=== PATIENT | female | born 1950 | race Caucasian/White ===

== ENCOUNTER 2016-12-01 07:05 | Inpatient (IN) | payer OTHER ==
[2016-12-01] MEDS ORDERED: SODIUM CHLORIDE 1,000 ML IV STA (07:43)
[2016-12-01] MEDS ORDERED: SODIUM CHLORIDE 0.9% 1000 ML INFUS.BAG IV PRN (07:43)
[2016-12-01 07:55] LABS: VENOUS PH 7.15 (7.32-7.42)
[2016-12-01] MEDS ORDERED: FUROSEMIDE 40 MG/4 ML INJECTABLE VIAL IVPB ONE (07:55)
--- NOTE | 2016-12-01 07:58 | PDOC ---
Attending Attestation - Resident Resident Name: John Loen - ED Attending Attestation I have performed the following: I have examined & evaluated the patient, The case was reviewed & discussed with the resident, I agree w/resident's findings & plan, Exceptions are as noted - HPI HPI: 12/01/16 07:54 66-year-old female with history of hypertension presents with acute on chronic shortness of breath over the last 2-3 days positive dyspnea, positive orthopnea , positive cough. No fevers or chills, had recently normal nuclear stress test with normal EF on 11/11/16. - Physicial Exam PE: 12/01/16 07:56 Afebrile. Slight tachycardia. Course breath sounds bilaterally with some expiratory wheezing, scant basilar crackles. Trace ankle edema bilaterally, no calf tenderness or swelling - Medical Decision Making 12/01/16 07:56 Patient seen and evaluated with the resident. I agree with the overall evaluation, assessment, and management with the following summary of visit: 66-year-old female with history of hypertension presents with progressive shortness of breath over the last year, acutely exacerbated over the last 2-3 days. Question diastolic heart failure, question primary lung disease such as COPD, seems less consistent with PE. Labs, urinalysis EKG, chest x-ray Trial of nebulizers and small dose IV Lasix Will need admission for further cardiac and pulmonary evaluation.
--- NOTE | 2016-12-01 08:00 | PDOC ---
History of Present Illness - General Chief Complaint: Shortness of Breath Stated Complaint: DIFF BREATHING Time Seen by Provider: 12/01/16 07:18 History Source: Patient Exam Limitations: Language Barrier - History of Present Illness Initial Comments: 12/01/16 07:56 64 yo F with PMhx of HTN and hypothyroidism presents with two day history of increased shortness of breath. She states that for past year she has had extensive testing to discover the cause of her worsening ALEMAN. She states that for past two days she has had increasing SOB to the point today where her daughter noted accessory muscle use and severe SOB at rest. She was given her [facility] treatment at home with minimal releif. She endorses orthopnea , palpitations and non-productive cough. Denies fever, CP, REYNA, abd.pain, N/V. Timing/Duration: reports: getting worse Severity: reports: moderate Possible Cause: Yes: no prior episodes Modifying Factors: improves with: activity, coughing, lying down Associated Symptoms: reports: cough. denies: fever/chills Aspirin Received prior to arrival: Yes: no aspirin today Past History - Past Medical History Allergies/Adverse Reactions: Allergies Allergy/AdvReac Type Severity Reaction Status Date / Time No Known Allergies Allergy Verified 12/01/16 07:18 Home Medications: Ambulatory Orders Amlodipine Besylate [Norvasc -] 10 mg PO DAILY 12/01/16 Lisinopril [Zestril] 2.5 mg PO DAILY 12/01/16 Omeprazole 20 mg PO DAILY 12/01/16 Simvastatin [Zocor -] 20 mg PO HS 12/01/16 HTN: Yes Thyroid Disease: Yes - Family Disease History Family Disease History: Heart Disease: Father, Mother, Sister (SCD post [place] @ 53) - Psycho/Social/Smoking Cessation Hx Suicidal Ideation: No Smoking History: Never smoked Have you smoked in the past 12 months: No Information on smoking cessation initiated: No Hx Alcohol Use: No Drug/Substance Use Hx: No Respiratory Specific PMHX - Complaint Specific PMHX Bronchitis: No Pneumonia: No Review of Systems - Review of Systems Able to Perform ROS?: Yes Is the patient limited Kinyarwanda proficient: Yes Constitutional: Yes: Diaphoresis. No: Chills, Fever Respiratory: Yes: Cough, Orthopnea, Shortness of Breath, SOB with Exertion, SOB at Rest Cardiac (ROS): Yes: Edema All Other Systems: Reviewed and Negative *Physical Exam - Vital Signs Last Vital Signs Temp Pulse Resp BP Pulse Ox 98.2 F 113 H 20 154/96 100 12/01/16 07:18 12/01/16 07:18 12/01/16 07:18 12/01/16 07:18 12/01/16 07:18 - Physical Exam General Appearance: Yes: Moderate Distress HEENT: positive: EOMI, LAMAR, Normal ENT Inspection Neck: positive: Supple Respiratory/Chest: positive: Respiratory Distress, Labored Respiration, Crackles , Wheezing Cardiovascular: positive: Regular Rhythm, Regular Rate, S1, S2, Edema. negative : JVD, Murmur Vascular Pulses: Dorsalis-Pedis (R): 2+, Doralis-Pedis (L): 2+ Gastrointestinal/Abdominal: positive: Normal Bowel Sounds, Flat, Soft. negative : Tender, Organomegaly, Pulsatile Mass Musculoskeletal: positive: Normal Inspection. negative: CVA Tenderness Extremity: positive: Normal Inspection Integumentary: positive: Normal Color, Dry, Warm. 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 intact, Fully Oriented, Alert, Normal Mood/ Affect Heart Score/ECG Review - History History: Slightly suspicious - Electrocardiogram EKG: Normal - Age Age: >/= 65 - Risk Factors Risk Factors Heart Score: Yes Hx Hypercholesterolemia, Yes Hx Hypertension, Yes Smoking History, Yes Positive family hx of cardiac disease Based on the list above the patient has:: >/=3 risk factors or Hx atherosclerotic disease - ECG Intrepretation Rhythm: Regular Rhythm - Sallis Sallis: Normal - ST and T Early Repolarization: No Non Specific ST-T Wave changes: No - ECG Impressions Normal ECG: Yes ED Treatment Course - LABORATORY CBC & Chemistry Diagram: 12/01/16 07:44 12/01/16 07:44 - RADIOLOGY Chest X-Ray Result: No Infiltrates Radiograph Interpretation: 12/01/16 09:33 * RAD/CHEST X-RAY PORTABLE* AP portable chest: Sepsis Imaging reveals a normal heart, unfolded aorta and normal tomasz. There is fullness in the right superior mediastinum. The lungs are clear. The angles are sharp. The bones appear intact. The breasts soft tissues appear intact. A sonogram from 09/22/2015 showed an enlarged right thyroid. This right superior mediastinal soft tissue density could represent this. For more complete evaluation, follow-up imaging with sonography or CT may be of help. Impression: Fullness right superior mediastinum. The above. Reported By: Aron Todd MD 12/01/16 0853 12/01/16 11:04 * EXAM#: TYPE/EXAM: RESULT: [id number] CT/CHEST CTA Clinical history: Rule out emboli. Comparison: Chest x-ray earlier today. Contiguous transaxial images were obtained from the lung apices to the bases with windows obtained for mediastinal and lung parenchymal detail. Images were obtained during the arterial phase for evaluation of pulmonary emboli. Sagittal and coronal reconstructions were performed as well as 3-D imaging. Mediastinum: There is a diffuse goiter with greater enlargement of the right lobe of the thyroid. At the level of the SC joints trachea is quite narrowed and slightly to the left. It measures a maximum of 7 mm in AP dimension x 5 mm in width. There is significant substernal extension bilaterally. The SVC is moderately compressed but is patent. Otherwise negative. Lungs: Small nonspecific subtle groundglass opacity anterior right upper lobe on image #30 of series #6. Suggest follow-up. 10 x 8 mm right lower lobe nodule on image #49. It has a somewhat unusual appearance with a thin peripheral hyperdense region and centrally being slightly hypodense. Correlate with PET scan. Bone: Negative. Cursory scanning of the upper abdomen: Negative. Impression: No evidence of emboli. 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 This results in significant narrowing of the airway with the trachea measuring 11 x 5 mm. There is a nonspecific subtle groundglass opacity in the right upper lobe which will need follow- up. There is a 10 x 8 mm nodule in the right lower lobe which should be evaluated with a PET scan. Clinical correlation advised. Reported By: Aron Parker MD 12/01/16 1029 Medical Decision Making - Medical Decision Making 12/01/16 08:06 64 yo F with PMhx of HTN and hypothyroidism presents with two day history of increased shortness of breath. Could be some component of CHF or primary lung issue. Will order Duoneb and Lasix 20mg IV. Ordered CBC, CMp, UA, and BNP. Will obtain CXR. 12/01/16 11:02 * Lactic acidemia noted on labs. * Chest CT- shows obstructing goiter, ground glass RUL and nodule RLL. * Decision to admit * accepted by [facility] Dr. Nichols. *DC/Admit/Observation/Transfer Diagnosis at time of Disposition: Acute respiratory distress, Lactic acidemia - Discharge Dispostion Admit: Yes - Referrals Referrals: Ga Montalvo MD [Primary Care Provider] -
[2016-12-01] MEDS: ALBUTEROL SO4 2.5/IPRATROPIUM 0.5 INH SOL 3 ML VIAL.NEB. NEB SCH ×4 (08:01→08:55)
[2016-12-01] MEDS ORDERED: FUROSEMIDE 40 MG/4 ML INJECTABLE VIAL ONE (08:02)
[2016-12-01] MEDS ORDERED: ALBUTEROL SO4 2.5/IPRATROPIUM 0.5 INH SOL 3 ML VIAL.NEB. NEB ONE (08:02)
[2016-12-01 08:41] LABS: BASOPHIL 0.5 % (0-2.0); MCH 25.1 pg (25.7-33.7); MCHC 32.4 g/dl (32.0-36.0); MEAN CELL VOLUME 77.6 fl (80-96); MEAN PLT VOLUME 10.5 fl (7.5-11.1); PLATELET COUNT 235 K/MM3 (134-434); RDW 15.5 % (11.6-15.6); WHITE BLOOD COUNT 10.5 K/mm3 (4.0-10.0)
[2016-12-01 08:43] LABS: ALBUMIN 3.6 g/dl (3.4-5.0); ANION GAP 11 (8-16); BILIRUBIN,TOTAL 0.3 mg/dL (0.2-1.0); CALCIUM 8.9 mg/dL (8.5-10.1); CO2 32 mmol/L (21-32); COCKROFT - GAULT 89.9045; CREATININE 0.8 mg/dL (0.55-1.02); GLUCOSE,RANDOM 143 mg/dL (74-106); SGOT/AST 17 U/L (15-37); SGPT/ALT 22 U/L (12-78); TOT PROT 7.3 g/dl (6.4-8.2)
[2016-12-01 08:45] LABS: ALK PHOS 119 U/L (45-117); TROPONIN I 0.02 ng/ml (0.00-0.05)
[2016-12-01 09:01] LABS: URINE APPEARANCE CLEAR; URINE BILIRUBIN NEGATIVE (NEGATIVE); URINE BLOOD NEGATIVE (NEGATIVE); URINE COLOR COLORLESS; URINE GLUCOSE (UA) NEGATIVE (NEGATIVE); URINE KETONE NEGATIVE (NEGATIVE); URINE NITRITE NEGATIVE (NEGATIVE); URINE PROTEIN NEGATIVE (NEGATIVE); URINE UROBILINOGEN NEGATIVE E.U./dl (0.2-1.0)
[2016-12-01 09:06] LABS: URINE LEUK ESTERASE TRACE (NEGATIVE)
[2016-12-01 09:07] LABS: URINE MUCUS RARE; URINE RBC 1 /hpf (0-3); URINE WBC 8 /hpf (3-5)
[2016-12-01 09:32] LABS: INR 0.93 (0.82-1.09); PROTHROMBIN TIME (PATIENT) 10.2 SEC (9.98-11.88)
[2016-12-01 09:35] LABS: ACTIVATED PTT 35.1 SECONDS (26.9-34.4)
[2016-12-01] MEDS ORDERED: ALBUTEROL SO4 2.5/IPRATROPIUM 0.5 INH SOL 3 ML VIAL.NEB. NEB PRN (10:56)
--- NOTE | 2016-12-01 13:08 | EKG ---
Test Reason : Blood Pressure : / mmHG Vent. Rate : 106 BPM Atrial Rate : 106 BPM P-R Int : 172 ms QRS Dur : 092 ms QT Int : 360 ms P-R-T Axes : 046 -19 020 degrees QTc Int : 478 ms SINUS TACHYCARDIA POSSIBLE LEFT ATRIAL ENLARGEMENT ANTERIOR INFARCT , AGE UNDETERMINED ABNORMAL ECG NO PREVIOUS ECGS AVAILABLE Confirmed by VANESSA SALGADO MD ([id number]) on 12/01/2016 1:08:29 PM Referred By: Confirmed By:VANESSA SALGADO MD
--- NOTE | 2016-12-01 14:04 | PN ---
Teaching Attending Note Name of Resident: Renetta Pimentel ATTENDING PHYSICIAN STATEMENT I saw and evaluated the patient. I reviewed the resident's note and discussed the case with the resident. I agree with the resident's findings and plan as documented. SUBJECTIVE:c/o dyspnea on exertion progressively worsening over the past few weeks. assoc with non productive cough. as per daughter who is present at bedside who translated. pt was told she had a thyroid goiter a year ago and was told it was benign (but no bx was done). denies CP, fever, chills, odynophagia, dysphagia, drooling, hoarseness of voice. OBJECTIVE: Last Vital Signs Temp Pulse Resp BP Pulse Ox 97.1 F L 81 18 132/79 100 12/01/16 10:54 12/01/16 14:08 12/01/16 14:08 12/01/16 14:08 12/01/16 14:08 General NAD no tachypnea no drooling. speaking in clear sentences without respiratory distress HEENT no stridor, no oral plaques or lesions +thyromegaly, no nodules CV S1 S2 RRR no murmur/rub/gallop Lungs CTA B/L no wheezing/rales/rhonchi abdomen soft NT/ND obese Extremities no pedal edema ASSESSMENT AND PLAN: 66yo F with PMH HTN presented to the ER and was admitted for further evaluation of their emergent condition 1. thyroid mass with tracheal compression- pt is saturating 99% on 2L NC. no signs of respiratory distress. check ABG. ICU eval. ENT and CT surgery eval. will likely require resection. call PMD for previous workup done. check TSH supplemental oxygen to maintain spO2 >90%. low threshold for intubation. 2. Lactic acidosis- awaiting repeat Lactic acid 3. Lung nodule- +smoking history. will need repeat CT in 3 months 4. HTn- controlled. cont home medications 5. DVT ppx- hep sq The care of this patient involved high complexity decision making to prevent further life threatening deterioration of the patient's condition and/or to evalute & treat vital organ system(s) failure or risk of failure. 38 minutes critical care time
--- NOTE | 2016-12-01 14:46 | HP ---
CHIEF COMPLAINT: shortness of breath PCP: Dr. Robins HISTORY OF PRESENT ILLNESS: This is a 66 year old female with a past medical history of HTN,hypothyroid ( previously on levothyroxine) ex smoker, who presented with a chronic history (> one year), of dyspnea with exertion that has progressively gotten worse over the last 2 days. Patient was with daughter when she felt sob, daughter states she had to therapist's assistant her "mouth to mouth" and called ambulance. Patinet also states she has had some difficulty with food/discomfort. Patient denies fever, chills, sore throat, chest pain, palpitations, leg swelling, GI or complaints. Patient was been worked up in the past for her condition according to the daughter, no obvious causes found. Patient quit smoking at age 69; 1ppd. Patient was tachycardic, hypertensive upon admission, O2 saturation on room air was 100%. I spoke with Dr. Robins, his records indicate that she was treated for hypothyriod in the past, she was on levothyroxine, this was discontinued, no records of thyroid imaging. As per chart she had thyroid US in 2016 showing enlarged right thyroid, follow up unknown. ER course was notable for: (1)wbc 10.5; lactic acid 5.5; venous blood gas ph 7.1 (2)CXR wnl (3)Chest CT large goiter compressing trachea Recent Travel: no PAST MEDICAL HISTORY: htn. history of hypothyroid PAST SURGICAL HISTORY: Social History: Smoking:ex smoker Alcohol:no Drugs: no Family History: Allergies No Known Allergies Allergy (Verified 12/01/16 07:18) HOME MEDICATIONS: Home Medications Medication Instructions Recorded Amlodipine Besylate [Norvasc -] 10 mg PO DAILY 12/01/16 Lisinopril [Zestril] 2.5 mg PO DAILY 12/01/16 Omeprazole 20 mg PO DAILY 12/01/16 Simvastatin [Zocor -] 20 mg PO HS 12/01/16 REVIEW OF SYSTEMS CONSTITUTIONAL: Absent: fever, chills, diaphoresis, generalized weakness, malaise, loss of appetite, weight change HEENT: Absent: rhinorrhea, nasal congestion, throat pain, throat swelling, difficulty swallowing, mouth swelling, ear pain, eye pain, visual changes CARDIOVASCULAR: Absent: chest pain, syncope, palpitations, irregular heart rate, lightheadedness , peripheral edema RESPIRATORY: POsitive: shortness of breath, dyspnea with exertion, orthopnea Absent: cough, , wheezing, stridor, hemoptysis GASTROINTESTINAL: Absent: abdominal pain, abdominal distension, nausea, vomiting, diarrhea, constipation, melena, hematochezia GENITOURINARY: Absent: dysuria, frequency, urgency, hesitancy, hematuria, flank pain, genital pain MUSCULOSKELETAL: Absent: myalgia, arthralgia, joint swelling, back pain, neck pain SKIN: Absent: rash, itching, pallor HEMATOLOGIC/IMMUNOLOGIC: Absent: easy bleeding, easy bruising, lymphadenopathy, frequent infections ENDOCRINE: Absent: unexplained weight gain, unexplained weight loss, heat intolerance, cold intolerance NEUROLOGIC: Absent: headache, focal weakness or paresthesias, dizziness, unsteady gait, seizure, mental status changes, bladder or bowel incontinence PSYCHIATRIC: Absent: anxiety, depression, suicidal or homicidal ideation, hallucinations. PHYSICAL EXAMINATION Vital Signs - 24 hr 12/01/16 14:08 Pulse Rate [ 81 Apical] Respiratory 18 Rate Blood Pressure 132/79 [Right Arm] O2 Sat by Pulse 100 Oximetry (%) GENERAL: Awake, alert, and fully oriented, in no acute distress. HEAD: Normal with no signs of trauma. EYES: Pupils equal, round and reactive to light, extraocular movements intact, sclera anicteric, conjunctiva clear. No lid lag. EARS, NOSE, THROAT: Ears normal, nares patent, oropharynx clear without exudates. Moist mucous membranes. NECK: neck fullness ,without lymphadenopathy, JVD, LUNGS: Breath sounds equal, clear to auscultation bilaterally. No wheezes, and no crackles. No accessory muscle use. HEART: Regular rate and rhythm, normal S1 and S2 without murmur, rub or gallop. ABDOMEN: Soft, nontender, not distended, normoactive bowel sounds, no guarding, no rebound, no masses. No hepatomegaly or splenomegaly. MUSCULOSKELETAL: Normal range of motion at all joints. No bony deformities or tenderness. No CVA tenderness. UPPER EXTREMITIES: 2+ pulses, warm, well-perfused. No cyanosis. No clubbing. No peripheral edema. LOWER EXTREMITIES: 2+ pulses, warm, well-perfused. No calf tenderness. No peripheral edema. NEUROLOGICAL: Cranial nerves II-XII intact. Normal speech. Normal gait. PSYCHIATRIC: Cooperative. Good eye contact. Appropriate mood and affect. SKIN: Warm, dry, normal turgor, no rashes or lesions noted, normal capillary refill. IMAGES: 12/01/16 09:33 RAD/CHEST X-RAY PORTABLE* AP portable chest: Sepsis Imaging reveals a normal heart, unfolded aorta and normal tomasz. There is fullness in the right superior mediastinum. The lungs are clear. The angles are sharp. The bones appear intact. The breasts soft tissues appear intact. A sonogram from 09/22/2015 showed an enlarged right thyroid. This right superior mediastinal soft tissue density could represent this. For more complete evaluation, follow-up imaging with sonography or CT may be of help. Impression: Fullness right superior mediastinum. The above. Reported By: Aron Todd MD 12/01/16 0853 12/01/16 11:04 EXAM#: TYPE/EXAM: RESULT: [id number] CT/CHEST CTA Clinical history: Rule out emboli. Comparison: Chest x-ray earlier today. Contiguous transaxial images were obtained from the lung apices to the bases with windows obtained for mediastinal and lung parenchymal detail. Images were obtained during the arterial phase for evaluation of pulmonary emboli. Sagittal and coronal reconstructions were performed as well as 3-D imaging. Mediastinum: There is a diffuse goiter with greater enlargement of the right lobe of the thyroid. At the level of the SC joints trachea is quite narrowed and slightly to the left. It measures a maximum of 7 mm in AP dimension x 5 mm in width. There is significant substernal extension bilaterally. The SVC is moderately compressed but is patent. Otherwise negative. Lungs: Small nonspecific subtle groundglass opacity anterior right upper lobe on image #30 of series #6. Suggest follow-up. 10 x 8 mm right lower lobe nodule on image #49. It has a somewhat unusual appearance with a thin peripheral hyperdense region and centrally being slightly hypodense. Correlate with PET scan. Bone: Negative. Cursory scanning of the upper abdomen: Negative. Impression: No evidence of emboli. 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 This results in significant narrowing of the airway with the trachea measuring 11 x 5 mm. There is a nonspecific subtle groundglass opacity in the right upper lobe which will need follow- up. There is a 10 x 8 mm nodule in the right lower lobe which should be evaluated with a PET scan. Clinical correlation advised. Reported By: Aron Parker MD 12/01/16 1029 ASSESSMENT/PLAN: This is a 66 year old female with PMHx HTN and previous hypothyriod, currently not on thyroid medication, presented with worsening shortness of breath over the last two days. CT showing large goiter compressing trachea. Patient admitted for acute respiratory distress and evaluation of emergent condition. #Hypercapniec respiratory failure with lactic acidosis secondary to diffuse goiter compressing trachea -CT imaging details above -VBG ph 7.1 on RA; repeat with ABG -repeat lactic acid -on 2L NC -transfer to ICU; maintain airway; low threshold for intubation -call out to thoracic surgeon, Dr. Yovany Bonilla for possible surgery #hx of hypothyroid: -thyroid studies pending #HTN: -lisinopril 2.5mg qd #HLD: -simvistatin 20mg qd #lung nodule found on CT: -f/u PET scan as outpatient FEN: Fluids: 125ml/hr NS Electrolytes: wnl Diet: NPO VTE prophylaxis: n/a may go for surgery Disposition: transfer to ICU: pending surgery Visit type - Emergency Visit Emergency Visit: Yes ED Registration Date: 12/01/16 Care time: The patient presented to the Emergency Department on the above date and was hospitalized for further evaluation of their emergent condition. - New Patient This patient is new to me today: Yes Date on this admission: 12/01/16 - Critical Care Critical Care patient: Yes Total Critical Care Time (in minutes): 35 Critical Care Statement: The care of this patient involved high complexity decision making to prevent further life threatening deterioration of the patient 's condition and/or to evalute & treat vital organ system(s) failure or risk of failure.
--- NOTE | 2016-12-01 16:11 | PN ---
Teaching Attending Note Name of Resident: Shant Easley ATTENDING PHYSICIAN STATEMENT I saw and evaluated the patient. I reviewed the resident's note and discussed the case with the resident. I agree with the resident's findings and plan as documented. SUBJECTIVE: Briefly, 66yo female with h/o HTN, hypothyroidism, known enlarged thyroid seen on ultrasound last year who presents with worsening shortness of breath over the past year but much worse over the past 2 days. No chest pain or palpitations. No fevers, chills or sweats. Also reports dysphagia. CT chest performed showing very large thyroid with extraluminal trachea compression with 5mm widthwise patency. VBG done in the ER showing acute on chronic respiratory acidosis. OBJECTIVE: Last Vital Signs Temp Pulse Resp BP Pulse Ox 97.1 F L 88 19 144/86 99 12/01/16 10:54 12/01/16 16:02 12/01/16 16:02 12/01/16 16:02 12/01/16 16:02 Intake & Output 11/28/16 11/29/16 11/30/16 12/01/16 23:59 23:59 23:59 23:59 Weight 184 lb Gen: anxious, mildly tachypneic at rest Neck: +stridor, diffuse thyromegaly Heart: RRR Lung: distant breath sounds Abd: soft, nontender Ext: no edema CBC, BMP 12/01/16 07:44 12/01/16 07:44 Active Medications Albuterol/Ipratropium (Duoneb -) 1 amp NEB QIDR PRN PRN Reason: Dyspnea Amlodipine Besylate (Norvasc -) 10 mg PO DAILY VERA Atorvastatin Calcium (Lipitor -) 10 mg PO HS VERA Enoxaparin Sodium (Lovenox -) 40 mg SQ DAILY VERA Lisinopril (Prinivil) 2.5 mg PO DAILY VERA Pantoprazole Sodium (Protonix -) 20 mg PO DAILY VERA ASSESSMENT AND PLAN: Acute on Hypercapneic Respiratory Failure Thyromegaly with Tracheal Compression Lactic Acidosis HTN Lung Nodule - head and neck surgery evaluation as pt will likely need resection - ABG as pt with acute respiratory acidosis on VBG but pt in distress at that time - O2 to keep SpO2 >90% - can attempt BiPAP if respiratory status worsens - ICU monitoring for tenuous respiratory status - will need outpt work up of lung nodule as she was a smoker Thank you for this consult Conner Jensen MD critical care time spent reviewing chart, evaluating patient and formulating plan 35 min
[2016-12-01 16:23] LABS: ARTERIAL BLD GAS O2 SATURATION 98.5 % (90-98.9); ARTERIAL BLOOD GAS BASE EXCESS 4.5 meq/l (-2-2); ARTERIAL BLOOD GAS HCO3 28.2 meq/L (22-26)
[2016-12-01 16:24] LABS: ALLENS TEST POSITIVE; ART PUNCT SITE RIGHT RADIAL; PT. ON O2? YES
[2016-12-01 16:25] LABS: ARTERIAL BLOOD GAS pH 7.46 (7.35-7.45); LPM/O2% 2 LPM; TYPE OF O2 NASAL CANNULA
[2016-12-01] MEDS ORDERED: SODIUM CHLORIDE 1,000 ML IV SCH (16:45)
--- NOTE | 2016-12-01 17:08 | CONSULT ---
Consultation: REQUESTING PROVIDER: CONSULT REQUEST: We have been asked to medically evaluate this patient for (ICU) . HISTORY OF PRESENT ILLNESS: 66YF with PMH of HTN, hypothyroid (previously on levothyroxine), former smoker presents to ED with dyspnea. patient reports greater than a year and a half of progressive, constant, dyspnea, aggravated by activity. patient daughter reports constant loud breathing sounds "Stridor" during rest and especially during activity. worsened passed two days, daughter gave patient "mouth to mouth" and called ambulance. As per chart she had thyroid US in 2016 showing enlarged right thyroid, follow up unknown. Patient reports occasional dysphasia , palpitations,generalized weakness, hot flashes. Denies weight loss, cold intolerance, constipation. The patient denies fever, chills, rhinorrhea, nasal congestion, ear pain. The patient denies chest pain, headache,dizziness, lightheadedness, fever, chills, cough, back pain. The patient denies abdominal pain, nausea, vomiting, diarrhea, hematochezia, melena. The patient denies lower extremity pain/swelling and/or recent prolonged immobilization. CT chest performed showing very large thyroid with extraluminal trachea compression with 5mm widthwise patency. VBG done in the ER showing acute on chronic respiratory acidosis. Repeat ABG IN ER Improved to primary metabolic alkalosis with full Respiratory Compensation PH 7.46 Hco3 28.2 pco2 40 had recently normal nuclear stress test with normal EF on 11/11/16. 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 Migrated from [place] 2008. lives with daughter and grand son. quit smoking 17 years ago 1 and 1/2 pack daily, denies drug or alcohol use. Family history; mother, aunt, sister, female cousin has had thyroid surgery. ER course was notable for: (1)wbc 10.5; lactic acid 5.5; venous blood gas ph 7.1 (2)CXR wnl (3)Chest CT large goiter compressing trachea REVIEW OF SYSTEMS: CONSTITUTIONAL: generalized weakness, malaise, Absent: fever, chills, diaphoresis, loss of appetite, weight change HEENT: occasional difficulty swallowing, Absent: rhinorrhea, nasal congestion, throat pain, throat swelling, mouth swelling, ear pain, eye pain, visual changes CARDIOVASCULAR: Absent: chest pain, syncope, palpitations, irregular heart rate, lightheadedness , peripheral edema RESPIRATORY: cough, shortness of breath, dyspnea with exertion, orthopnea, stridor, Absent:wheezing, hemoptysis GASTROINTESTINAL: Absent: abdominal pain, abdominal distension, nausea, vomiting, diarrhea, constipation, melena, hematochezia GENITOURINARY: Absent: dysuria, frequency, urgency, hesitancy, hematuria, flank pain, genital pain MUSCULOSKELETAL: Absent: myalgia, arthralgia, joint swelling, back pain, neck pain SKIN: Absent: rash, itching, pallor HEMATOLOGIC/IMMUNOLOGIC: Absent: easy bleeding, easy bruising, lymphadenopathy, frequent infections ENDOCRINE: Absent: unexplained weight gain, unexplained weight loss, heat intolerance, cold intolerance NEUROLOGIC: Absent: headache, focal weakness or paresthesias, dizziness, unsteady gait, seizure, mental status changes, bladder or bowel incontinence PSYCHIATRIC: Absent: anxiety, depression, suicidal or homicidal ideation, hallucinations. PHYSICAL EXAMINATION Vital Signs - 24 hr 12/01/16 12/01/16 14:08 16:02 Pulse Rate [ 81 88 Apical] Respiratory 18 19 Rate Blood Pressure 132/79 144/86 [Right Arm] O2 Sat by Pulse 100 99 Oximetry (%) GENERAL: Awake, alert, and fully oriented, in no acute distress. pleasantly sitting in bed, strider heard at bed side with coughing. Strider heard heard on auscultation at rest. HEAD: Normal with no signs of trauma. EYES: Pupils equal, round and reactive to light, extraocular movements intact, sclera anicteric, conjunctiva clear. No lid lag. EARS, NOSE, THROAT: Ears normal, nares patent, oropharynx clear without exudates. Moist mucous membranes. NECK: Normal range of motion, +stridor, diffuse thyromegaly, supple without lymphadenopathy, JVD, LUNGS: distant breath sounds, breath sounds equal, clear to auscultation bilaterally. No wheezes, and no crackles. No accessory muscle use. HEART: Regular rate and rhythm, normal S1 and S2 without murmur, rub or gallop. superficail ABDOMEN: Obese abdomin, Soft, nontender, not distended, normoactive bowel sounds , no guarding, no rebound, no masses. No hepatomegaly or splenomegaly. UPPER EXTREMITIES: 2+ pulses, warm, well-perfused. No cyanosis. No clubbing. Cap refill <2 seconds. No peripheral edema. LOWER EXTREMITIES: 2+ pulses, warm, well-perfused. No calf tenderness. No peripheral edema. NEUROLOGICAL: Cranial nerves II-XII intact. Normal speech. Normal gait. PSYCHIATRIC: Cooperative. Good eye contact. Appropriate mood and affect. SKIN: Warm, dry, normal turgor, no rashes or lesions noted. Laboratory Results - last 24 hr 12/01/16 16:15 Puncture Site Right radial ABG pH 7.46 H ABG pCO2 at Pt Temp 40.0 ABG pO2 at Pt Temp 106.0 H ABG HCO3 28.2 H ABG O2 Sat (Measured) 98.5 ABG O2 Content 18.6 ABG Base Excess 4.5 H Michele Test Positive O2 Delivery Device Nasal cannula Oxygen Flow Rate 2 lpm PEEP 0.0 Active Medications Generic Name Dose Route Start Last Admin Trade Name Freq PRN Reason Stop Dose Admin Albuterol/Ipratropium 1 amp 12/01/16 10:56 Duoneb - NEB QIDR PRN Dyspnea Amlodipine Besylate 10 mg 12/02/16 10:00 Norvasc - PO DAILY VERA Atorvastatin Calcium 10 mg 12/01/16 22:00 Lipitor - PO HS VERA Sodium Chloride 1,000 mls @ 125 mls/hr 12/01/16 16:45 Normal Saline - IV ASDIR VERA Lisinopril 2.5 mg 12/02/16 10:00 Prinivil PO DAILY VERA Pantoprazole Sodium 20 mg 12/02/16 10:00 Protonix - PO DAILY VERA ASSESSMENT/PLAN: 66YF with PMH of HTN, hypothyroid (previously on levothyroxine), former smoker presents to ED with dyspnea. patient reports greater than a year and a half of progressive, constant, dyspnea, aggravated by activity. CT showing large goiter compressing trachea. Acute on Hypercapneic Respiratory Failure resolving bedside spirometry fixed obstructive volume loop paten can attempt BiPAP if respiratory status worsens If intubation is necessary consider smaller tube size and assess distance bellow vocal cord. On 2L NC saturting 95% O2 to keep SpO2 >90% Thyromegaly/Goiter with Tracheal Compression: Massive goiter leading to respiratory compromise. awaiting ENT/ surgery consultation Surgery here at [facility] on Tuesday. Lactic Acidosis: resolved HTN: Controlled on home Amlodipine, Lisinopril HLD: -simvastatin 20mg qd leukocytosis: resolved: reactive Lung Nodule monitor as outpatient repeat CT in 3-6 months FEN: Fluids: oral hydration Electrolytes:Replete as needed Diet:soft No indication for GI prophylaxis DVT prophylaxis: heprain sq Dispo: continue ICU monitoring for tenuous respiratory status Dispo: We will continue to follow the patient. Thank you for this consultative opportunity. Visit type - Emergency Visit Emergency Visit: Yes ED Registration Date: 12/01/16 Care time: The patient presented to the Emergency Department on the above date and was hospitalized for further evaluation of their emergent condition. - New Patient This patient is new to me today: Yes Date on this admission: 12/01/16 - Critical Care Critical Care patient: Yes Total Critical Care Time (in minutes): 47 Critical Care Statement: The care of this patient involved high complexity decision making to prevent further life threatening deterioration of the patient 's condition and/or to evalute & treat vital organ system(s) failure or risk of failure.
[2016-12-01 17:43] LABS: TROPONIN I 0.07 ng/ml (0.00-0.05)
--- NOTE | 2016-12-01 19:36 | PN ---
Progress Note (short form) - Note Progress Note: ENT consultation ref by Dr. Jerry, Dr. Montalvo pt with recent shortness of breath, to ER, CT scan shows massive goiter with substantial substernal component, tracheal compression PE NAD 9oral cavity and oropharynx clear voice clear and strong, no stridor or respiratory distress Neck: large goiter, bilateral CT chest +large goiter with significant substernal component, tracheal narrowing Impression: goiter, tracheal compression Recommend: agree with ICU observation surgery with DR. Lemos as planned. Thank you for consultation Aron Washington MD
[2016-12-01 22:03] VITALS: BMI 33.6
[2016-12-01] MEDS ORDERED: ACETAMINOPHEN 325 MG TABLET (FP) PO ONE (22:22)
[2016-12-01] MEDS: ATORVASTATIN CA 10 MG TABLET (FP) PO SCH (22:24)
[2016-12-01] MEDS: HEPARIN NA (PORCINE) 5,000 UNITS/ML 1ML VIAL SQ SCH (22:24)
[2016-12-02 06:59] LABS: MAGNESIUM 2.1 mg/dL (1.8-2.4); PHOSPHOROUS 3.7 mg/dL (2.5-4.9)
[2016-12-02 07:07] LABS: FREE T4 0.96 ng/dl (0.76-1.46); THYROID STIMULATING HORMONE 0.92 uIU/ml (0.358-3.74)
[2016-12-02] MEDS ORDERED: ACETAMINOPHEN 325 MG TABLET (FP) PO PRN (07:52)
[2016-12-02 08:56] LABS: BASOPHIL 0.6 % (0-2.0); MCH 24.4 pg (25.7-33.7); MCHC 32.1 g/dl (32.0-36.0); MEAN PLT VOLUME 10.2 fl (7.5-11.1); NEUTROPHILS 49.9 % (42.8-82.8); PLATELET COUNT 240 K/MM3 (134-434); RDW 15.1 % (11.6-15.6); WHITE BLOOD COUNT 8.4 K/mm3 (4.0-10.0)
[2016-12-02] MEDS ORDERED: PNEUMOC 13-VAL CONJ-DIP CRM/PF 0.5 ML DISP.SYRIN IM ONE (09:00)
[2016-12-02] MEDS ORDERED: INFLUENZA VACCINE 45 MCG/0.5 ML (MDV 16-17) IM ONE (09:00)
[2016-12-02 09:42] LABS: TROPONIN I < 0.02 ng/ml (0.00-0.05)
[2016-12-02] MEDS: LISINOPRIL 5 MG TABLET (FP) PO SCH (09:42)
[2016-12-02] MEDS: HEPARIN NA (PORCINE) 5,000 UNITS/ML 1ML VIAL SQ SCH ×2 (09:42→21:16)
[2016-12-02] MEDS: amLODIPine BESYLATE 10 MG TABLET (FP) PO SCH (09:42)
[2016-12-02 09:44] LABS: ALBUMIN 3.6 g/dl (3.4-5.0); ANION GAP 9 (8-16); CALCIUM 8.7 mg/dL (8.5-10.1); CO2 29 mmol/L (21-32); CREATININE 0.8 mg/dL (0.55-1.02); GLUCOSE,RANDOM 143 mg/dL (74-106); SGOT/AST 18 U/L (15-37); SGPT/ALT 21 U/L (12-78)
[2016-12-02 09:46] LABS: ALK PHOS 111 U/L (45-117); BILIRUBIN,TOTAL 0.4 mg/dL (0.2-1.0); TROPONIN I < 0.02 ng/ml (0.00-0.05)
[2016-12-02] MEDS ORDERED: PANTOPRAZOLE 20 MG TABLET (FP) PO SCH (10:00)
[2016-12-02] MEDS ORDERED: ENOXAPARIN NA (PORCINE) 40 MG/0.4 ML DISP.SYRIN SQ SCH (10:00)
--- NOTE | 2016-12-02 11:54 | PN ---
Progress Note (short form) - Note Progress Note: Patient seen and examined. Episode of dyspnea and possible respiratory arrest responded to mouth to mouth resuscitation. Had a URI at home which worsened breathing. No chest pain. Has had known thyroid issue for a while. Much improved after admission to the hospital. PMH: HTN SH: ex-smoker 1-1.5 ppd from age 24 to 49 Examination shows obese woman in no distress breathing easily but with slight stridorous sound. Thyroid goiter palpable in the neck right greater than left, no adenopathy. Oral cavity no lesion. CT scan massive circumferential goiter with severe tracheal narrowing A/P: Massive goiter leading to respiratory compromise. Recommend total thyroidectomy. Discussed risks including voice change or possible need for tracheostomy if tracheomalacia encountered. Agrees to proceed. OR time available Tuesday so will proceed then. NPO past midnight Tuesday night. Please ask Anesthesia to evaluate preop.
--- NOTE | 2016-12-02 12:20 | EKG ---
Test Reason : Blood Pressure : / mmHG Vent. Rate : 079 BPM Atrial Rate : 079 BPM P-R Int : 174 ms QRS Dur : 094 ms QT Int : 400 ms P-R-T Axes : 042 -16 001 degrees QTc Int : 458 ms NORMAL SINUS RHYTHM INFERIOR INFARCT , AGE UNDETERMINED ABNORMAL ECG WHEN COMPARED WITH ECG OF 01-DEC-2016 07:13, INVERTED T WAVES HAVE REPLACED NONSPECIFIC T WAVE ABNORMALITY IN INFERIOR LEADS Confirmed by JACQUELIN BAUER, DELGADO ([id number]) on 12/02/2016 12:20:09 PM Referred By: SAUL SINGER Confirmed By:DELGADO ROPER MD
--- NOTE | 2016-12-02 13:10 | PN ---
Teaching Attending Note Name of Resident: Shant Easley ATTENDING PHYSICIAN STATEMENT I saw and evaluated the patient. I reviewed the resident's note and discussed the case with the resident. I agree with the resident's findings and plan as documented. SUBJECTIVE: Pt seen and examined in the ICU. Breathing improving, +cough with yellow sputum. No fevers or chills. Denies shortness of breath at rest. OBJECTIVE: Last Vital Signs Temp Pulse Resp BP Pulse Ox 98.4 F 94 H 14 128/96 95 12/02/16 10:00 12/02/16 12:00 12/02/16 12:00 12/02/16 12:00 12/02/16 10:10 Intake & Output 11/29/16 11/30/16 12/01/16 12/02/16 23:59 23:59 23:59 23:59 Weight 195 lb 15.855 oz Gen: mildly tachypneic with speaking Neck: thyromegaly, +stridor Heart: RRR Lung: distant breath sounds, no wheezes Abd: soft, nontender Ext: no edema CBC, BMP 12/02/16 08:53 12/02/16 08:53 Active Medications Acetaminophen (Tylenol -) 650 mg PO Q6H PRN PRN Reason: FEVER OR PAIN Albuterol/Ipratropium (Duoneb -) 1 amp NEB QIDR PRN PRN Reason: Dyspnea Amlodipine Besylate (Norvasc -) 10 mg PO DAILY [facility] Last Admin: 12/02/16 09:42 Dose: 10 mg Atorvastatin Calcium (Lipitor -) 10 mg PO HS [facility] Last Admin: 12/01/16 22:24 Dose: 10 mg Heparin Sodium (Porcine) (Heparin -) 5,000 unit SQ BID [facility] Last Admin: 12/02/16 09:42 Dose: 5,000 unit Sodium Chloride (Normal Saline -) 1,000 mls @ 125 mls/hr IV ASDIR [facility] Last Admin: 12/01/16 17:10 Dose: 125 mls/hr Lisinopril (Prinivil) 2.5 mg PO DAILY [facility] Last Admin: 12/02/16 09:42 Dose: 2.5 mg Pantoprazole Sodium (Protonix -) 20 mg PO DAILY [facility] Last Admin: 12/02/16 09:42 Dose: 20 mg ASSESSMENT AND PLAN: Acute on Hypercapneic Respiratory Failure resolving Thyromegaly/Goiter with Tracheal Compression Lactic Acidosis resolved HTN Lung Nodule - surgery evaluation appreciated, for OR on 12/06 - bedside spirometry to assess flow volume loop - O2 to keep SpO2 >90% - can attempt BiPAP if respiratory status worsens - continue ICU monitoring for tenuous respiratory status - will need outpt work up of lung nodule as she was a smoker critical care time spent reviewing chart, evaluating patient and formulating plan 35 min
--- NOTE | 2016-12-02 14:30 | PN ---
Physical Exam: SUBJECTIVE: Pt seen and examined in the ICU. siting comfortably in bed NAD,has appetite and had breakfast. Breathing improving, productive cough yellow sputum. No fevers or chills. Denies shortness of breath at rest. dyspnea, sob, [employer]ry[employer] with standing and walking. keep bed rest as tolerated. OBJECTIVE: Vital Signs Period Temp Pulse Resp BP Sys/Streeter Pulse Ox Last 24 Hr 97.4 F-98.6 F 80-94 14-19 128-161/74-96 95-100 GENERAL: Awake, alert, and fully oriented, in no acute distress. pleasantly sitting in bed, in mild stress and anxiety when cough, strider heard at bed side with coughing. Strider heard heard on auscultation at rest. HEAD: Normal with no signs of trauma. EYES: extraocular movements intact, sclera anicteric, conjunctiva clear. No lid lag. EARS, NOSE, THROAT: Oral cavity no lesion, ears normal, nares patent, oropharynx clear without exudates. Moist mucous membranes. NECK: Normal range of motion, +stridor, diffuse thyromegaly, supple without lymphadenopathy, JVD, LUNGS: distant breath sounds, breath sounds equal, clear to auscultation bilaterally. No wheezes, and no crackles. No accessory muscle use. HEART: prominent superficial veins on chest possible collateral circulation, Regular rate and rhythm, normal S1 and S2 without murmur, rub or gallop. ABDOMEN: Obese abdomin, Soft, nontender, not distended, normoactive bowel sounds , no guarding, no rebound, no masses. No hepatomegaly or splenomegaly. MUSCULOSKELETAL: Normal range of motion at all joints. No bony deformities or tenderness. LOWER EXTREMITIES: 2+ pulses, warm, well-perfused. No calf tenderness. No peripheral edema. NEUROLOGICAL: no facial asymmetry PSYCHIATRIC: Cooperative. Good eye contact. Appropriate mood and affect. SKIN: Warm, dry, normal turgor, no rashes or lesions noted. Laboratory Results - last 24 hr 12/01/16 12/01/16 12/01/16 16:15 16:30 16:30 WBC RBC Hgb Hct MCV MCHC RDW Plt Count MPV Neutrophils % Lymphocytes % Monocytes % Eosinophils % Basophils % Puncture Site Right radial ABG pH 7.46 H ABG pCO2 at Pt Temp 40.0 ABG pO2 at Pt Temp 106.0 H ABG HCO3 28.2 H ABG O2 Sat (Measured) 98.5 ABG O2 Content 18.6 ABG Base Excess 4.5 H Michele Test Positive O2 Delivery Device Nasal cannula Oxygen Flow Rate 2 lpm PEEP 0.0 Sodium Potassium Chloride Carbon Dioxide Anion Gap BUN Creatinine Creat Clearance w eGFR Random Glucose Lactic Acid 2.595 H* Calcium Phosphorus Magnesium Total Bilirubin AST ALT Alkaline Phosphatase Creatine Kinase 86 Troponin I 0.07 H Total Protein Albumin TSH Free T4 12/02/16 12/02/16 12/02/16 05:30 05:30 08:53 WBC 8.4 RBC 5.27 H Hgb 12.9 Hct 40.1 MCV 76.0 L MCHC 32.1 RDW 15.1 Plt Count 240 MPV 10.2 Neutrophils % 49.9 Lymphocytes % 37.4 Monocytes % 9.1 Eosinophils % 3.0 Basophils % 0.6 Puncture Site ABG pH ABG pCO2 at Pt Temp ABG pO2 at Pt Temp ABG HCO3 ABG O2 Sat (Measured) ABG O2 Content ABG Base Excess Michele Test O2 Delivery Device Oxygen Flow Rate PEEP Sodium Potassium Chloride Carbon Dioxide Anion Gap BUN Creatinine Creat Clearance w eGFR Random Glucose Lactic Acid 1.087 Calcium Phosphorus 3.7 Magnesium 2.1 Total Bilirubin AST ALT Alkaline Phosphatase Creatine Kinase 87 Troponin I < 0.02 Total Protein Albumin TSH 0.92 D Free T4 0.96 12/02/16 12/02/16 08:53 08:53 WBC RBC Hgb Hct MCV MCHC RDW Plt Count MPV Neutrophils % Lymphocytes % Monocytes % Eosinophils % Basophils % Puncture Site ABG pH ABG pCO2 at Pt Temp ABG pO2 at Pt Temp ABG HCO3 ABG O2 Sat (Measured) ABG O2 Content ABG Base Excess Michele Test O2 Delivery Device Oxygen Flow Rate PEEP Sodium 141 Potassium 4.3 Chloride 103 Carbon Dioxide 29 Anion Gap 9 BUN 15 D Creatinine 0.8 Creat Clearance w eGFR > 60 Random Glucose 143 H Lactic Acid Calcium 8.7 Phosphorus Magnesium Total Bilirubin 0.4 D AST 18 ALT 21 Alkaline Phosphatase 111 Creatine Kinase 94 Troponin I < 0.02 Total Protein 7.0 Albumin 3.6 TSH Free T4 Active Medications Generic Name Dose Route Start Last Admin Trade Name Freq PRN Reason Stop Dose Admin Acetaminophen 650 mg 12/02/16 07:52 Tylenol - PO Q6H PRN FEVER OR PAIN Albuterol/Ipratropium 1 amp 12/01/16 10:56 Duoneb - NEB QIDR PRN Dyspnea Amlodipine Besylate 10 mg 12/02/16 10:00 12/02/16 09:42 Norvasc - PO 10 mg DAILY VERA Administration Atorvastatin Calcium 10 mg 12/01/16 22:00 12/01/16 22:24 Lipitor - PO 10 mg HS VERA Administration Heparin Sodium (Porcine) 5,000 unit 12/01/16 22:00 12/02/16 09:42 Heparin - SQ 5,000 unit BID VERA Administration Sodium Chloride 1,000 mls @ 125 mls/hr 12/01/16 16:45 12/01/16 17:10 Normal Saline - IV 125 mls/hr ASDIR VERA Administration Lisinopril 2.5 mg 12/02/16 10:00 12/02/16 09:42 Prinivil PO 2.5 mg DAILY VERA Administration Pantoprazole Sodium 20 mg 12/02/16 10:00 12/02/16 09:42 Protonix - PO 20 mg DAILY VERA Administration ASSESSMENT/PLAN: 66YF with PMH of HTN, hypothyroid (previously on levothyroxine), former smoker presents to ED with dyspnea. patient reports greater than a year and a half of progressive, constant, dyspnea, aggravated by activity. CT showing large goiter compressing trachea. Acute on Hypercapneic Respiratory Failure resolving bedside spirometry fixed obstructive volume loop paten can attempt BiPAP if respiratory status worsens On 2L NC saturting 95% O2 to keep SpO2 >90% Thyromegaly/Goiter with Tracheal Compression: Massive goiter leading to respiratory compromise. discussed case with Dr Lemos, Recommend total or partial thyroidectomy, for surgery on tuesday. surgery evaluation appreciated, for OR on 12/06 Lactic Acidosis: resolved HTN: Controlled on home Amlodipine, Lisinopril HLD: -simvastatin 20mg qd leukocytosis: resolved: reactive Lung Nodule montor as outpatient repeat CT in 3-6 months FEN: Fluids: oral hydration Electrolytes:Replete as needed Diet:soft No indication for GI prophylaxis DVT prophylaxis: heprain sq Dispo: continue ICU monitoring for tenuous respiratory status Visit type - Emergency Visit Emergency Visit: Yes ED Registration Date: 12/01/16 Care time: The patient presented to the Emergency Department on the above date and was hospitalized for further evaluation of their emergent condition. - New Patient This patient is new to me today: No - Critical Care Critical Care patient: Yes Total Critical Care Time (in minutes): 42 Critical Care Statement: The care of this patient involved high complexity decision making to prevent further life threatening deterioration of the patient 's condition and/or to evalute & treat vital organ system(s) failure or risk of failure.
--- NOTE | 2016-12-02 15:02 | PN ---
Physical Exam: SUBJECTIVE: Patient seen and examined, breathing has improved today, no new complaints, patient hungry. ON 2L NC OBJECTIVE: Vital Signs Period Temp Pulse Resp BP Sys/Streeter Pulse Ox Last 24 Hr 97.4 F-98.6 F 80-94 14-19 116-161/70-96 95-100 GENERAL: The patient is awake, alert, and fully oriented, in no acute distress. HEAD: Normal with no signs of trauma. EYES: PERRL, extraocular movements intact, sclera anicteric, conjunctiva clear. No ptosis. NECK: neck fullness Trachea midline, LUNGS: Breath sounds equal, clear to auscultation bilaterally, no wheezes, no crackles, no accessory muscle use. HEART: Regular rate and rhythm, S1, S2 without murmur, rub or gallop. ABDOMEN: Soft, nontender, nondistended, normoactive bowel sounds, no guarding, no rebound, no hepatosplenomegaly, no masses. EXTREMITIES: 2+ pulses, warm, well-perfused, no edema. NEUROLOGICAL: Cranial nerves II through XII grossly intact. Normal speech, gait not observed. PSYCH: Normal mood, normal affect. SKIN: Warm, dry, normal turgor, no rashes or lesions noted Laboratory Results - last 24 hr 12/01/16 12/01/16 12/01/16 16:15 16:30 16:30 WBC RBC Hgb Hct MCV MCHC RDW Plt Count MPV Neutrophils % Lymphocytes % Monocytes % Eosinophils % Basophils % Puncture Site Right radial ABG pH 7.46 H ABG pCO2 at Pt Temp 40.0 ABG pO2 at Pt Temp 106.0 H ABG HCO3 28.2 H ABG O2 Sat (Measured) 98.5 ABG O2 Content 18.6 ABG Base Excess 4.5 H Michele Test Positive O2 Delivery Device Nasal cannula Oxygen Flow Rate 2 lpm PEEP 0.0 Sodium Potassium Chloride Carbon Dioxide Anion Gap BUN Creatinine Creat Clearance w eGFR Random Glucose Lactic Acid 2.595 H* Calcium Phosphorus Magnesium Total Bilirubin AST ALT Alkaline Phosphatase Creatine Kinase 86 Troponin I 0.07 H Total Protein Albumin TSH Free T4 12/02/16 12/02/16 12/02/16 05:30 05:30 08:53 WBC 8.4 RBC 5.27 H Hgb 12.9 Hct 40.1 MCV 76.0 L MCHC 32.1 RDW 15.1 Plt Count 240 MPV 10.2 Neutrophils % 49.9 Lymphocytes % 37.4 Monocytes % 9.1 Eosinophils % 3.0 Basophils % 0.6 Puncture Site ABG pH ABG pCO2 at Pt Temp ABG pO2 at Pt Temp ABG HCO3 ABG O2 Sat (Measured) ABG O2 Content ABG Base Excess Michele Test O2 Delivery Device Oxygen Flow Rate PEEP Sodium Potassium Chloride Carbon Dioxide Anion Gap BUN Creatinine Creat Clearance w eGFR Random Glucose Lactic Acid 1.087 Calcium Phosphorus 3.7 Magnesium 2.1 Total Bilirubin AST ALT Alkaline Phosphatase Creatine Kinase 87 Troponin I < 0.02 Total Protein Albumin TSH 0.92 D Free T4 0.96 12/02/16 12/02/16 08:53 08:53 WBC RBC Hgb Hct MCV MCHC RDW Plt Count MPV Neutrophils % Lymphocytes % Monocytes % Eosinophils % Basophils % Puncture Site ABG pH ABG pCO2 at Pt Temp ABG pO2 at Pt Temp ABG HCO3 ABG O2 Sat (Measured) ABG O2 Content ABG Base Excess Michele Test O2 Delivery Device Oxygen Flow Rate PEEP Sodium 141 Potassium 4.3 Chloride 103 Carbon Dioxide 29 Anion Gap 9 BUN 15 D Creatinine 0.8 Creat Clearance w eGFR > 60 Random Glucose 143 H Lactic Acid Calcium 8.7 Phosphorus Magnesium Total Bilirubin 0.4 D AST 18 ALT 21 Alkaline Phosphatase 111 Creatine Kinase 94 Troponin I < 0.02 Total Protein 7.0 Albumin 3.6 TSH Free T4 Active Medications Generic Name Dose Route Start Last Admin Trade Name Freq PRN Reason Stop Dose Admin Acetaminophen 650 mg 12/02/16 07:52 Tylenol - PO Q6H PRN FEVER OR PAIN Albuterol/Ipratropium 1 amp 12/01/16 10:56 Duoneb - NEB QIDR PRN Dyspnea Amlodipine Besylate 10 mg 12/02/16 10:00 12/02/16 09:42 Norvasc - PO 10 mg DAILY VERA Administration Atorvastatin Calcium 10 mg 12/01/16 22:00 12/01/16 22:24 Lipitor - PO 10 mg HS VERA Administration Heparin Sodium (Porcine) 5,000 unit 12/01/16 22:00 12/02/16 09:42 Heparin - SQ 5,000 unit BID VERA Administration Sodium Chloride 1,000 mls @ 125 mls/hr 12/01/16 16:45 12/01/16 17:10 Normal Saline - IV 125 mls/hr ASDIR VERA Administration Lisinopril 2.5 mg 12/02/16 10:00 12/02/16 09:42 Prinivil PO 2.5 mg DAILY VERA Administration Pantoprazole Sodium 20 mg 12/02/16 10:00 12/02/16 09:42 Protonix - PO 20 mg DAILY VERA Administration ASSESSMENT/PLAN: This is a 66 year old female with PMHx HTN and previous hypothyriod, currently not on thyroid medication, presented with worsening shortness of breath over the last two days. CT showing large goiter compressing trachea. Patient admitted for acute respiratory distress and evaluation of emergent condition. #Hypercapniec respiratory failure with lactic acidosis secondary to diffuse goiter compressing trachea -surgery evaluation OR on 12/06 -CT imaging noted -lactic acidosis resolved -spirometry -aspiration precautions; elveate HOB -on 2L NC;O2 to keep SpO2 >90% #hx of hypothyroid: -thyroid function studies wnl #HTN: -lisinopril 2.5mg qd #HLD: -simvistatin 20mg qd #lung nodule found on CT: -f/u PET scan as outpatient FEN: Fluids: 125ml/hr NS Electrolytes: wnl Diet: soft VTE prophylaxis: n/a may go for surgery Disposition: ICU monitor airway : pending surgery Visit type - Emergency Visit Emergency Visit: Yes ED Registration Date: 12/01/16 Care time: The patient presented to the Emergency Department on the above date and was hospitalized for further evaluation of their emergent condition. - New Patient This patient is new to me today: No - Critical Care Critical Care patient: No
[2016-12-02 17:10] LABS: TROPONIN I < 0.02 ng/ml (0.00-0.05)
--- NOTE | 2016-12-02 18:54 | PN ---
Teaching Attending Note Name of Resident: Renetta Pimentel ATTENDING PHYSICIAN STATEMENT I saw and evaluated the patient. I reviewed the resident's note and discussed the case with the resident. I agree with the resident's findings and plan as documented. SUBJECTIVE:c/o cough productive of clear/white sputum. wants to eat. denies CP, SOB,fever, chills, N/V/C/D OBJECTIVE: Last Vital Signs Temp Pulse Resp BP Pulse Ox 97.8 F 95 H 18 124/74 95 12/02/16 18:00 12/02/16 18:00 12/02/16 18:00 12/02/16 18:00 12/02/16 10:10 General NAD no tachypnea no drooling. speaking in clear sentences without respiratory distress HEENT + stridor, no oral plaques or lesions +thyromegaly, no nodules CV S1 S2 RRR no murmur/rub/gallop Lungs CTA B/L no wheezing/rales/rhonchi ASSESSMENT AND PLAN: 66yo F with PMH HTN presented to the ER and was admitted for further evaluation of their emergent condition 1. thyroid mass with tracheal compression-currently stable. high risk of respiratory collapse. low threshold for intervention. plan for total thyroidectomy. CT surgery on board. supplemental oxygen to maintain spO2 >90% 2. Lactic acidosis- resolved 3. Lung nodule- +smoking history. will need repeat CT in 3 months 4. HTn- controlled. cont home medications 5. DVT ppx- hep sq The care of this patient involved high complexity decision making to prevent further life threatening deterioration of the patient's condition and/or to evalute & treat vital organ system(s) failure or risk of failure. 35 minutes critical care time
[2016-12-02] MEDS: ATORVASTATIN CA 10 MG TABLET (FP) PO SCH (21:15)
[2016-12-02] MEDS ORDERED: SODIUM CHLORIDE NASAL SPRAY 44 ML BOTTLE NS PRN (22:07)
[2016-12-03 06:02] LABS: MCH 24.9 pg (25.7-33.7); MEAN CELL VOLUME 75.3 fl (80-96); MEAN PLT VOLUME 10.2 fl (7.5-11.1); PLATELET COUNT 270 K/MM3 (134-434); RDW 15.2 % (11.6-15.6)
[2016-12-03 06:22] LABS: CALCIUM 9.2 mg/dL (8.5-10.1); COCKROFT - GAULT 95.2; CREATININE 0.8 mg/dL (0.55-1.02)
--- NOTE | 2016-12-03 07:37 | PN ---
Physical Exam: SUBJECTIVE: Pt seen and examined in the ICU. siting comfortably in bed NAD. patient complains of irritated nose, dry blood on napkin, given humidifier, now oxygen off saturating 96% on RA in no respiratory distress. Breathing, productive improving. No fevers or chills. Denies shortness of breath at rest. keep bed rest as tolerated. no urinary symptoms, UA negative, U cultures grew Ecoli. OBJECTIVE: Vital Signs Period Temp Pulse Resp BP Sys/Streeter Pulse Ox Last 24 Hr 97.2 F-98.4 F 71-95 14-20 115-152/70-96 95-98 GENERAL: Awake, alert, and fully oriented, in no acute distress. pleasantly sitting in bed, in mild stress and anxiety when cough, strider heard at bed side with coughing. Strider heard heard on auscultation at rest. HEAD: Normal with no signs of trauma. EYES: extraocular movements intact, sclera anicteric, conjunctiva clear. EARS, NOSE, THROAT: Oral cavity no lesion, ears normal, nares patent, oropharynx clear without exudates. Moist mucous membranes. NECK: Normal range of motion, +stridor, diffuse thyromegaly, supple without lymphadenopathy, JVD, LUNGS: distant breath sounds, breath sounds equal, clear to auscultation bilaterally. No wheezes, and no crackles. No accessory muscle use. HEART: prominent superficial veins on chest possible collateral circulation, Regular rate and rhythm, normal S1 and S2 without murmur, rub or gallop. ABDOMEN: Obese abdomin, Soft, nontender, not distended, normoactive bowel sounds , no guarding, no rebound, no masses. No hepatomegaly or splenomegaly. MUSCULOSKELETAL: Normal range of motion at all joints. No bony deformities or tenderness. LOWER EXTREMITIES: 2+ pulses, warm, well-perfused. No calf tenderness. trace peripheral edema. NEUROLOGICAL: No facial asymmetry PSYCHIATRIC: Cooperative. Good eye contact. Appropriate mood and affect. SKIN: Warm, dry, normal turgor, no rashes or lesions noted. Laboratory Results - last 24 hr 12/02/16 12/02/16 12/02/16 05:30 08:53 08:53 WBC 8.4 RBC 5.27 H Hgb 12.9 Hct 40.1 MCV 76.0 L MCHC 32.1 RDW 15.1 Plt Count 240 MPV 10.2 Neutrophils % 49.9 Lymphocytes % 37.4 Monocytes % 9.1 Eosinophils % 3.0 Basophils % 0.6 Sodium 141 Potassium 4.3 Chloride 103 Carbon Dioxide 29 Anion Gap 9 BUN 15 D Creatinine 0.8 Creat Clearance w eGFR > 60 Random Glucose 143 H Calcium 8.7 Phosphorus 3.7 Magnesium 2.1 Total Bilirubin 0.4 D AST 18 ALT 21 Alkaline Phosphatase 111 Creatine Kinase 87 Troponin I < 0.02 Total Protein 7.0 Albumin 3.6 TSH 0.92 D Free T4 0.96 12/02/16 12/02/16 12/03/16 08:53 15:00 05:10 WBC 9.0 RBC 5.31 H Hgb 13.2 Hct 39.9 MCV 75.3 L MCHC 33.0 RDW 15.2 Plt Count 270 MPV 10.2 Neutrophils % Lymphocytes % Monocytes % Eosinophils % Basophils % Sodium Potassium Chloride Carbon Dioxide Anion Gap BUN Creatinine Creat Clearance w eGFR Random Glucose Calcium Phosphorus Magnesium Total Bilirubin AST ALT Alkaline Phosphatase Creatine Kinase 94 118 Troponin I < 0.02 < 0.02 Total Protein Albumin TSH Free T4 12/03/16 05:10 WBC RBC Hgb Hct MCV MCHC RDW Plt Count MPV Neutrophils % Lymphocytes % Monocytes % Eosinophils % Basophils % Sodium 144 Potassium 4.8 Chloride 104 Carbon Dioxide 31 Anion Gap 9 BUN 17 Creatinine 0.8 Creat Clearance w eGFR Random Glucose 130 H Calcium 9.2 Phosphorus Magnesium Total Bilirubin AST ALT Alkaline Phosphatase Creatine Kinase Troponin I Total Protein Albumin TSH Free T4 Active Medications Generic Name Dose Route Start Last Admin Trade Name Freq PRN Reason Stop Dose Admin Acetaminophen 650 mg 12/02/16 07:52 Tylenol - PO Q6H PRN FEVER OR PAIN Albuterol/Ipratropium 1 amp 12/01/16 10:56 Duoneb - NEB QIDR PRN Dyspnea Amlodipine Besylate 10 mg 12/02/16 10:00 12/02/16 09:42 Norvasc - PO 10 mg DAILY [facility] Administration Atorvastatin Calcium 10 mg 12/01/16 22:00 12/02/16 21:15 Lipitor - PO 10 mg HS [facility]A Administration Heparin Sodium (Porcine) 5,000 unit 12/01/16 22:00 12/02/16 21:16 Heparin - SQ 5,000 unit BID [facility] Administration Lisinopril 2.5 mg 12/02/16 10:00 12/02/16 09:42 Prinivil PO 2.5 mg DAILY [facility] Administration Sodium Chloride 2 spray 12/02/16 22:07 12/02/16 22:15 [place] - NS 2 sprays TID PRN Administration NASAL CONGESTION ASSESSMENT/PLAN: 66YF with PMH of HTN, hypothyroid (previously on levothyroxine), former smoker presents to ED with dyspnea. patient reports greater than a year and a half of progressive, constant, dyspnea, aggravated by activity. CT showing large goiter compressing trachea. Acute on Hypercapneic Respiratory Failure resolving. Stryder present , bedside spirometry fixed obstructive volume loop, can attempt CPAP / BiPAP if respiratory status worsens. On RA saturting 96% can attempt BiPAP if respiratory status worsensO2 to keep SpO2 >90% Thyromegaly/Goiter with Tracheal Compression: Massive goiter leading to respiratory compromise. Dr Lemos, Recommend total or partial thyroidectomy, for surgery on tuesday. Lactic Acidosis: resolved HTN: Controlled on home Amlodipine, Lisinopril HLD: -simvastatin 20mg qd leukocytosis: resolved: reactive Lung Nodule- hx smoking monitor as outpatient repeat CT in 3-6 months no urinary symptoms, UA negative, U cultures grew Ecoli, no antibiotics at this time. FEN: Fluids: oral hydration Electrolytes:Replete as needed Diet:soft No indication for GI prophylaxis DVT prophylaxis: heparin sq Dispo: continue ICU monitoring for tenuous respiratory status Visit type - Emergency Visit Emergency Visit: Yes ED Registration Date: 12/01/16 Care time: The patient presented to the Emergency Department on the above date and was hospitalized for further evaluation of their emergent condition. - New Patient This patient is new to me today: No - Critical Care Critical Care patient: Yes Total Critical Care Time (in minutes): 41 Critical Care Statement: The care of this patient involved high complexity decision making to prevent further life threatening deterioration of the patient 's condition and/or to evalute & treat vital organ system(s) failure or risk of failure.
[2016-12-03] MEDS: HEPARIN NA (PORCINE) 5,000 UNITS/ML 1ML VIAL SQ SCH ×2 (09:21→22:31)
[2016-12-03] MEDS: LISINOPRIL 5 MG TABLET (FP) PO SCH (09:21)
[2016-12-03] MEDS: amLODIPine BESYLATE 10 MG TABLET (FP) PO SCH (09:21)
--- NOTE | 2016-12-03 11:32 | PN ---
Teaching Attending Note Name of Resident: Shant Easley ATTENDING PHYSICIAN STATEMENT I saw and evaluated the patient. I reviewed the resident's note and discussed the case with the resident. I agree with the resident's findings and plan as documented. SUBJECTIVE: Patient seen and examined in the ICU. Breathing feels about the same. Some dry cough (minimal yellow sputum). No fevers or chills. OBJECTIVE: Intake & Output 11/30/16 12/01/16 12/02/16 12/03/16 23:59 23:59 23:59 23:59 Intake Total 500 200 Balance 500 200 Weight 195 lb 15.855 oz Last Vital Signs Temp Pulse Resp BP Pulse Ox 98.2 F 90 20 125/71 96 12/03/16 10:00 12/03/16 10:00 12/03/16 10:00 12/03/16 10:00 12/02/16 20:17 Active Medications Acetaminophen (Tylenol -) 650 mg PO Q6H PRN PRN Reason: FEVER OR PAIN Albuterol/Ipratropium (Duoneb -) 1 amp NEB QIDR PRN PRN Reason: Dyspnea Amlodipine Besylate (Norvasc -) 10 mg PO DAILY [facility] Last Admin: 12/03/16 09:21 Dose: 10 mg Atorvastatin Calcium (Lipitor -) 10 mg PO HS [facility] Last Admin: 12/02/16 21:15 Dose: 10 mg Heparin Sodium (Porcine) (Heparin -) 5,000 unit SQ BID [facility] Last Admin: 12/03/16 09:21 Dose: 5,000 unit Lisinopril (Prinivil) 2.5 mg PO DAILY [facility] Last Admin: 12/03/16 09:21 Dose: 2.5 mg Sodium Chloride ([place] Nasal [place] -) 2 spray NS TID PRN PRN Reason: NASAL CONGESTION Last Admin: 12/02/16 22:15 Dose: 2 sprays Gen: NAD at rest Neck: thyromegaly, +stridor Heart: RRR Lung: distant breath sounds, no wheezes Abd: soft, nontender Ext: no edema Laboratory Results - last 24 hr 12/02/16 12/03/16 12/03/16 15:00 05:10 05:10 WBC 9.0 RBC 5.31 H Hgb 13.2 Hct 39.9 MCV 75.3 L MCHC 33.0 RDW 15.2 Plt Count 270 MPV 10.2 Sodium 144 Potassium 4.8 Chloride 104 Carbon Dioxide 31 Anion Gap 9 BUN 17 Creatinine 0.8 Random Glucose 130 H Calcium 9.2 Creatine Kinase 118 Troponin I < 0.02 ASSESSMENT AND PLAN: Acute on Hypercapneic Respiratory Failure resolving Thyromegaly/Goiter with Tracheal Compression Lactic Acidosis resolved HTN Lung Nodule - Anticipated for OR on 12/06 - O2 to keep SpO2 >90% - can attempt CPAP / BiPAP if respiratory status worsens - continue ICU monitoring for tenuous respiratory status - Will need outpt work up of lung nodule as she was a smoker Critical care time spent reviewing chart, evaluating patient and formulating plan [address] Steven
--- NOTE | 2016-12-03 13:37 | PN ---
Physical Exam: SUBJECTIVE: Patient seen and examined, she states her breathing has improved, no problems with meals, on 2L NC sat 99%. OBJECTIVE: Vital Signs Period Temp Pulse Resp BP Sys/Streeter Pulse Ox Last 24 Hr 97.2 F-98.2 F 71-95 18-20 115-152/70-90 96-98 GENERAL: The patient is awake, alert, and fully oriented, in no acute distress. HEAD: Normal with no signs of trauma. NECK: thyromegaly LUNGS: Breath sounds equal, clear to auscultation bilaterally, no wheezes, no crackles, no accessory muscle use. HEART: Regular rate and rhythm, S1, S2 without murmur, rub or gallop. ABDOMEN: Soft, nontender, nondistended, normoactive bowel sounds, no guarding, no rebound, no hepatosplenomegaly, no masses. EXTREMITIES: 2+ pulses, warm, well-perfused, no edema. NEUROLOGICAL: Cranial nerves II through XII grossly intact. Normal speech, gait not observed. PSYCH: Normal mood, normal affect. SKIN: Warm, dry, normal turgor, no rashes or lesions noted Laboratory Results - last 24 hr 12/02/16 12/03/16 12/03/16 15:00 05:10 05:10 WBC 9.0 RBC 5.31 H Hgb 13.2 Hct 39.9 MCV 75.3 L MCHC 33.0 RDW 15.2 Plt Count 270 MPV 10.2 Sodium 144 Potassium 4.8 Chloride 104 Carbon Dioxide 31 Anion Gap 9 BUN 17 Creatinine 0.8 Random Glucose 130 H Calcium 9.2 Creatine Kinase 118 Troponin I < 0.02 Active Medications Generic Name Dose Route Start Last Admin Trade Name Freq PRN Reason Stop Dose Admin Acetaminophen 650 mg 12/02/16 07:52 Tylenol - PO Q6H PRN FEVER OR PAIN Albuterol/Ipratropium 1 amp 12/01/16 10:56 Duoneb - NEB QIDR PRN Dyspnea Amlodipine Besylate 10 mg 12/02/16 10:00 12/03/16 09:21 Norvasc - PO 10 mg DAILY [facility] Administration Atorvastatin Calcium 10 mg 12/01/16 22:00 12/02/16 21:15 Lipitor - PO 10 mg HS [facility] Administration Heparin Sodium (Porcine) 5,000 unit 12/01/16 22:00 12/03/16 09:21 Heparin - SQ 5,000 unit BID [facility] Administration Lisinopril 2.5 mg 12/02/16 10:00 12/03/16 09:21 Prinivil PO 2.5 mg DAILY [facility] Administration Sodium Chloride 2 spray 12/02/16 22:07 12/02/16 22:15 [place] Nasal [place] - NS 2 sprays TID PRN Administration NASAL CONGESTION ASSESSMENT/PLAN: ASSESSMENT/PLAN: This is a 66 year old female with PMHx HTN and previous hypothyriod, currently not on thyroid medication, presented with worsening shortness of breath over the last two days. CT showing large goiter compressing trachea. Patient admitted for acute respiratory distress and evaluation of emergent condition. #Hypercapniec respiratory failure with lactic acidosis secondary to diffuse goiter compressing trachea -surgery evaluation OR on 12/06 -CT imaging noted -lactic acidosis resolved -spirometry -aspiration precautions; elveate HOB -on 2L NC;O2 to keep SpO2 >90% #hx of hypothyroid: -thyroid function studies wnl #HTN: -lisinopril 2.5mg qd #HLD: -simvistatin 20mg qd #lung nodule found on CT: -f/u PET scan as outpatient FEN: Fluids: 125ml/hr NS Electrolytes: wnl Diet: soft VTE prophylaxis: n/a may go for surgery Disposition: ICU monitor airway : pending surgery 12/06 Visit type - Emergency Visit Emergency Visit: Yes ED Registration Date: 12/01/16 Care time: The patient presented to the Emergency Department on the above date and was hospitalized for further evaluation of their emergent condition. - New Patient This patient is new to me today: No - Critical Care Critical Care patient: No
--- NOTE | 2016-12-03 16:01 | PN ---
Progress Note (short form) - Note Progress Note: Patient seen and examined. Feels better. Breathing easily. Eating without difficulty. Exam unchanged with large goiter. Risks of surgery explained including voice change, hoarseness, hypocalcemia, need for thyroid hormone and possible tracheostomy. She understands, wishes to proceed and signed [place] consent. Plan to proceed with thyroidectomy Tuesday. NPO past midnight Tuesday night.
--- NOTE | 2016-12-03 17:02 | PN ---
Teaching Attending Note Name of Resident: Renetta Pimentel ATTENDING PHYSICIAN STATEMENT I saw and evaluated the patient. I reviewed the resident's note and discussed the case with the resident. I agree with the resident's findings and plan as documented. SUBJECTIVE:continues to have productive cough of yellowish sputum. no difficulty breathing or swallowing. no dysphagia or odynophagia, no dysuria OBJECTIVE: Last Vital Signs Temp Pulse Resp BP Pulse Ox 98.5 F 85 18 113/69 98 12/03/16 14:00 12/03/16 12:00 12/03/16 14:00 12/03/16 14:00 12/03/16 09:00 General NAD speaking in clear sentences without respiratory distress HEENT + stridor, no oral plaques or lesions +thyromegaly, no nodules CV S1 S2 RRR no murmur/rub/gallop Lungs CTA B/L no wheezing/rales/rhonchi ASSESSMENT AND PLAN: 66yo F with PMH HTN presented to the ER and was admitted for further evaluation of their emergent condition 1. thyroid mass with tracheal compression-currently stable. high risk of respiratory collapse. low threshold for intervention. plan for total thyroidectomy on tuesday. CT surgery on board. supplemental oxygen to maintain spO2 >90% 2. Ecoli UTI- likely colonization. UA with trace LE no WBC. asymptomatic. no indication to treat at this time 3. Lactic acidosis- resolved 4. Lung nodule- +smoking history. will need repeat CT in 3 months 5. HTn- controlled. cont home medications 6. DVT ppx- hep sq The care of this patient involved high complexity decision making to prevent further life threatening deterioration of the patient's condition and/or to evalute & treat vital organ system(s) failure or risk of failure. 37 minutes critical care time
[2016-12-03] MEDS: ATORVASTATIN CA 10 MG TABLET (FP) PO SCH (22:31)
[2016-12-04] MEDS: LISINOPRIL 5 MG TABLET (FP) PO SCH (09:02)
[2016-12-04] MEDS: amLODIPine BESYLATE 10 MG TABLET (FP) PO SCH (09:02)
[2016-12-04] MEDS: HEPARIN NA (PORCINE) 5,000 UNITS/ML 1ML VIAL SQ SCH ×2 (09:02→21:35)
--- NOTE | 2016-12-04 10:13 | PN ---
Progress Note (short form) - Note Progress Note: SUBJECTIVE: Patient seen and examined in the ICU. No stridor, no resp distress slept well. Remains in ICU until Surgery on Tuesday OBJECTIVE: Vital Signs Temp 98.2 F 12/04/16 02:00 Pulse 89 12/04/16 09:47 Resp 20 12/04/16 06:00 BP 135/79 12/04/16 06:00 Pulse Ox 98 12/04/16 09:47 Intake & Output 12/03/16 12/03/16 12/04/16 11:59 23:59 11:59 Intake Total 200 1240 240 Balance 200 1240 240 Intake: Oral 200 1240 240 Other: Voiding Method Bedside Commode Bedside Commode Bedside Commode # Unmeasured Voids Void 3 2 Active Medications Acetaminophen (Tylenol -) 650 mg PO Q6H PRN PRN Reason: FEVER OR PAIN Albuterol/Ipratropium (Duoneb -) 1 amp NEB QIDR PRN PRN Reason: Dyspnea Amlodipine Besylate (Norvasc -) 10 mg PO DAILY [facility] Last Admin: 12/04/16 09:02 Dose: 10 mg Atorvastatin Calcium (Lipitor -) 10 mg PO HS [facility] Last Admin: 12/03/16 22:31 Dose: 10 mg Heparin Sodium (Porcine) (Heparin -) 5,000 unit SQ BID [facility] Last Admin: 12/04/16 09:02 Dose: 5,000 unit Lisinopril (Prinivil) 2.5 mg PO DAILY [facility] Last Admin: 12/04/16 09:02 Dose: 2.5 mg Sodium Chloride ([place] Nasal [place] -) 2 spray NS TID PRN PRN Reason: NASAL CONGESTION Last Admin: 12/02/16 22:15 Dose: 2 sprays Gen: NAD at rest Neck: thyromegaly, +stridor Heart: RRR Lung: distant breath sounds, no wheezes Abd: soft, nontender Ext: no edema CBC, BMP 12/03/16 05:10 12/03/16 05:10 ASSESSMENT AND PLAN: Acute on Hypercapneic Respiratory Failure resolving Thyromegaly/Goiter with Tracheal Compression Lactic Acidosis resolved HTN Lung Nodule - Anticipated for OR on 12/06 - O2 to keep SpO2 >90% - can attempt CPAP / BiPAP if respiratory status worsens - continue ICU monitoring for tenuous respiratory status - Will need outpt work up of lung nodule as she was a smoker, repeat CT in 6mo Critical care time spent reviewing chart, evaluating patient and formulating plan 35 min Zach Dolan ACNP [id number]
--- NOTE | 2016-12-04 12:59 | PN ---
Progress Note (short form) - Note Progress Note: continues to have productive cough, no dysphagia, odynophagia, CP, SOB,fever, chills Current Medications Generic Name Dose Route Start Last Admin Trade Name Radha PRN Reason Stop Dose Admin Acetaminophen 650 mg 12/02/16 07:52 Tylenol - PO Q6H PRN FEVER OR PAIN Albuterol/Ipratropium 1 amp 12/01/16 10:56 Duoneb - NEB QIDR PRN Dyspnea Amlodipine Besylate 10 mg 12/02/16 10:00 12/04/16 09:02 Norvasc - PO 10 mg DAILY [facility] Administration Atorvastatin Calcium 10 mg 12/01/16 22:00 12/03/16 22:31 Lipitor - PO 10 mg HS [facility]A Administration Heparin Sodium (Porcine) 5,000 unit 12/01/16 22:00 12/04/16 09:02 Heparin - SQ 5,000 unit BID [facility]A Administration Lisinopril 2.5 mg 12/02/16 10:00 12/04/16 09:02 Prinivil PO 2.5 mg DAILY VERA Administration Sodium Chloride 2 spray 12/02/16 22:07 12/02/16 22:15 [place] Nasal [place] - NS 2 sprays TID PRN Administration NASAL CONGESTION Last Vital Signs Temp Pulse Resp BP Pulse Ox 98.4 F 80 18 122/74 98 12/04/16 08:00 12/04/16 10:00 12/04/16 10:00 12/04/16 10:00 12/04/16 09:47 General NAD speaking in clear sentences without respiratory distress HEENT + stridor, no oral plaques or lesions +thyromegaly, no nodules CV S1 S2 RRR no murmur/rub/gallop Lungs CTA B/L no wheezing/rales/rhonchi ASSESSMENT AND PLAN: 66yo F with PMH HTN presented to the ER and was admitted for further evaluation of their emergent condition 1. thyroid mass with tracheal compression-currently stable. high risk of respiratory collapse. low threshold for intervention. plan for total thyroidectomy on tuesday. CT surgery on board. supplemental oxygen to maintain spO2 >90% if cough doesnt resolve post-op consider d/c acei 2. Ecoli UTI- likely colonization. UA with trace LE no WBC. asymptomatic. no indication to treat at this time 3. Lactic acidosis- resolved 4. Lung nodule- +smoking history. will need repeat CT in 3 months 5. HTn- controlled. cont home medications 6. DVT ppx- hep sq The care of this patient involved high complexity decision making to prevent further life threatening deterioration of the patient's condition and/or to evalute & treat vital organ system(s) failure or risk of failure. 30 minutes critical care time Visit type - Emergency Visit Emergency Visit: Yes ED Registration Date: 12/01/16 Care time: The patient presented to the Emergency Department on the above date and was hospitalized for further evaluation of their emergent condition. - New Patient This patient is new to me today: No - Critical Care Critical Care patient: Yes Total Critical Care Time (in minutes): 35 Critical Care Statement: The care of this patient involved high complexity decision making to prevent further life threatening deterioration of the patient 's condition and/or to evalute & treat vital organ system(s) failure or risk of failure. - Discharge Referral Referred to [facility] Med [facility] No
[2016-12-04] MEDS: ATORVASTATIN CA 10 MG TABLET (FP) PO SCH (21:34)
[2016-12-05] MEDS: HEPARIN NA (PORCINE) 5,000 UNITS/ML 1ML VIAL SQ SCH ×2 (10:46→22:00)
[2016-12-05] MEDS: LISINOPRIL 5 MG TABLET (FP) PO SCH (10:46)
[2016-12-05] MEDS: amLODIPine BESYLATE 10 MG TABLET (FP) PO SCH (10:46)
--- NOTE | 2016-12-05 11:46 | PN ---
Progress Note (short form) - Note Progress Note: Seen and examined in the ICU OOB in chair w/o distress Current Medications Acetaminophen (Tylenol -) 650 mg PO Q6H PRN PRN Reason: FEVER OR PAIN Albuterol/Ipratropium (Duoneb -) 1 amp NEB QIDR PRN PRN Reason: Dyspnea Amlodipine Besylate (Norvasc -) 10 mg PO DAILY [facility] Last Admin: 12/05/16 10:46 Dose: 10 mg Atorvastatin Calcium (Lipitor -) 10 mg PO HS [facility] Last Admin: 12/04/16 21:34 Dose: 10 mg Heparin Sodium (Porcine) (Heparin -) 5,000 unit SQ BID [facility] Last Admin: 12/05/16 10:46 Dose: 5,000 unit Lisinopril (Prinivil) 2.5 mg PO DAILY [facility] Last Admin: 12/05/16 10:46 Dose: 2.5 mg Sodium Chloride ([place] Nasal [place] -) 2 spray NS TID PRN PRN Reason: NASAL CONGESTION Last Admin: 12/02/16 22:15 Dose: 2 sprays Vital Signs Period Temp Pulse Resp BP Sys/Streeter Pulse Ox Last 24 Hr 98 F-98.6 F 68-96 12-20 109-140/65-83 97-99 Intake & Output 12/02/16 12/03/16 12/04/16 12/05/16 23:59 23:59 23:59 23:59 Intake Total 500 1440 680 475 Balance 500 1440 680 475 Gen: NAD at rest Neck: thyromegaly, no stridor Heart: RRR Lung: distant breath sounds, no wheezes Abd: soft, nontender Ext: no edema CBCD WBC 9.0 K/mm3 (4.0-10.0) 12/03/16 05:10 RBC 5.31 M/mm3 (3.60-5.2) H 12/03/16 05:10 Hgb 13.2 GM/dL (10.7-15.3) 12/03/16 05:10 Hct 39.9 % (32.4-45.2) 12/03/16 05:10 MCV 75.3 fl (80-96) L 12/03/16 05:10 MCHC 33.0 g/dl (32.0-36.0) 12/03/16 05:10 RDW 15.2 % (11.6-15.6) 12/03/16 05:10 Plt Count 270 K/MM3 (134-434) 12/03/16 05:10 MPV 10.2 fl (7.5-11.1) 12/03/16 05:10 CMP Sodium 144 mmol/L (136-145) 12/03/16 05:10 Potassium 4.8 mmol/L (3.5-5.1) 12/03/16 05:10 Chloride 104 mmol/L (98-107) 12/03/16 05:10 Carbon Dioxide 31 mmol/L (21-32) 12/03/16 05:10 Anion Gap 9 (8-16) 12/03/16 05:10 BUN 17 mg/dL (7-18) 12/03/16 05:10 Creatinine 0.8 mg/dL (0.55-1.02) 12/03/16 05:10 Creat Clearance w eGFR > 60 (>60) 12/02/16 08:53 Random Glucose 130 mg/dL (74-106) H 12/03/16 05:10 Calcium 9.2 mg/dL (8.5-10.1) 12/03/16 05:10 Total Bilirubin 0.4 mg/dL (0.2-1.0) D 12/02/16 08:53 AST 18 U/L (15-37) 12/02/16 08:53 ALT 21 U/L (12-78) 12/02/16 08:53 Alkaline Phosphatase 111 U/L (45-117) 12/02/16 08:53 Total Protein 7.0 g/dl (6.4-8.2) 12/02/16 08:53 Albumin 3.6 g/dl (3.4-5.0) 12/02/16 08:53 CARDIAC ENZYMES Creatine Kinase 118 IU/L (26-192) 12/02/16 15:00 Troponin I < 0.02 ng/ml (0.00-0.05) 12/02/16 15:00 ASSESSMENT AND PLAN: Acute on Hypercapneic Respiratory Failure resolving Thyromegaly/Goiter with Tracheal Compression Lactic Acidosis resolved HTN Lung Nodule - Anticipated for OR on 12/06 - O2 to keep SpO2 >90% - can attempt CPAP / BiPAP if respiratory status worsens - continue ICU monitoring for tenuous respiratory status - Will need outpt work up of lung nodule as she was a smoker, repeat CT in 6mo [place] ACNP Pulm/CCM CCT: 35
--- NOTE | 2016-12-05 15:44 | PN ---
Progress Note (short form) - Note Progress Note: cough is no longer productive. no dysphagia, odynophagia, CP, SOB,fever, chills Current Medications Generic Name Dose Route Start Last Admin Trade Name Radha PRN Reason Stop Dose Admin Acetaminophen 650 mg 12/02/16 07:52 Tylenol - PO Q6H PRN FEVER OR PAIN Albuterol/Ipratropium 1 amp 12/01/16 10:56 Duoneb - NEB QIDR PRN Dyspnea Amlodipine Besylate 10 mg 12/02/16 10:00 12/05/16 10:46 Norvasc - PO 10 mg DAILY VERA Administration Atorvastatin Calcium 10 mg 12/01/16 22:00 12/04/16 21:34 Lipitor - PO 10 mg HS VERA Administration Heparin Sodium (Porcine) 5,000 unit 12/01/16 22:00 12/05/16 10:46 Heparin - SQ 5,000 unit BID EVRA Administration Lisinopril 2.5 mg 12/02/16 10:00 12/05/16 10:46 Prinivil PO 2.5 mg DAILY VERA Administration Sodium Chloride 2 spray 12/02/16 22:07 12/02/16 22:15 [place] Nasal [place] - NS 2 sprays TID PRN Administration NASAL CONGESTION Last Vital Signs Temp Pulse Resp BP Pulse Ox 99.2 F 84 18 120/68 97 12/05/16 14:00 12/05/16 14:00 12/05/16 14:00 12/05/16 14:00 12/05/16 10:38 General NAD speaking in clear sentences without respiratory distress HEENT no stridor, +thyromegaly, no nodules CV S1 S2 RRR no murmur/rub/gallop Lungs CTA B/L no wheezing/rales/rhonchi ASSESSMENT AND PLAN: 66yo F with PMH HTN presented to the ER and was admitted for further evaluation of their emergent condition 1. thyroid mass with tracheal compression-currently stable. high risk of respiratory collapse. low threshold for intervention. NPO for total thyroidectomy today. CT surgery on board. supplemental oxygen to maintain spO2 > 90% if cough doesnt resolve post-op consider d/c acei 2. Ecoli UTI- likely colonization. UA with trace LE no WBC. asymptomatic. no indication to treat at this time 3. Lactic acidosis- resolved 4. Lung nodule- +smoking history. will need repeat CT in 3 months 5. HTn- controlled. cont home medications 6. DVT ppx- hep sq The care of this patient involved high complexity decision making to prevent further life threatening deterioration of the patient's condition and/or to evalute & treat vital organ system(s) failure or risk of failure. 35 minutes critical care time Visit type - Emergency Visit Emergency Visit: Yes ED Registration Date: 12/01/16 Care time: The patient presented to the Emergency Department on the above date and was hospitalized for further evaluation of their emergent condition. - New Patient This patient is new to me today: No - Critical Care Critical Care patient: Yes Total Critical Care Time (in minutes): 35 Critical Care Statement: The care of this patient involved high complexity decision making to prevent further life threatening deterioration of the patient 's condition and/or to evalute & treat vital organ system(s) failure or risk of failure. - Discharge Referral Referred to [facility] Med P.C.: No
[2016-12-05] MEDS: ATORVASTATIN CA 10 MG TABLET (FP) PO SCH (21:12)
[2016-12-06 06:14] LABS: MCH 24.9 pg (25.7-33.7); MCHC 33.4 g/dl (32.0-36.0); MEAN CELL VOLUME 74.5 fl (80-96); MEAN PLT VOLUME 9.8 fl (7.5-11.1); PLATELET COUNT 276 K/MM3 (134-434); RDW 14.8 % (11.6-15.6)
[2016-12-06 06:24] LABS: INR 1.04 (0.82-1.09); PROTHROMBIN TIME (PATIENT) 11.4 SEC (9.98-11.88)
[2016-12-06 06:27] LABS: ACTIVATED PTT 33.8 SECONDS (26.9-34.4)
[2016-12-06 06:49] LABS: CALCIUM 9.2 mg/dL (8.5-10.1); COCKROFT - GAULT 111.35; CREATININE 0.7 mg/dL (0.55-1.02); MAGNESIUM 1.8 mg/dL (1.8-2.4); PHOSPHOROUS 3.5 mg/dL (2.5-4.9)
--- NOTE | 2016-12-06 07:53 | PN ---
Physical Exam: SUBJECTIVE: Patient seen and examined at bed side. denies fevers, chills, N/V/D, Cp, SOB. NPO over night for surgery today. OBJECTIVE: Vital Signs Period Temp Pulse Resp BP Sys/Streeter Pulse Ox Last 24 Hr 97.8 F-99.2 F 67-88 12-20 112-166/65-94 97-99 GENERAL: The patient is awake, alert, and fully oriented, in no acute distress. HEAD: Normal with no signs of trauma. EYES: PERRL, extraocular movements intact, sclera anicteric, conjunctiva clear. No ptosis. ENT: Ears normal, nares patent, oropharynx clear without exudates, moist mucous membranes. NECK: Trachea midline, full range of motion, supple. LUNGS: Breath sounds equal, clear to auscultation bilaterally, no wheezes, no crackles, no accessory muscle use. HEART: Regular rate and rhythm, S1, S2 without murmur, rub or gallop. ABDOMEN: Soft, nontender, nondistended, normoactive bowel sounds, no guarding, no rebound, no hepatosplenomegaly, no masses. EXTREMITIES: 2+ pulses, warm, well-perfused, no edema. NEUROLOGICAL: Cranial nerves II through XII grossly intact. Normal speech, gait not observed. PSYCH: Normal mood, normal affect. SKIN: Warm, dry, normal turgor, no rashes or lesions noted Laboratory Results - last 24 hr 12/06/16 12/06/16 12/06/16 05:15 05:15 05:15 WBC 9.0 RBC 5.23 H Hgb 13.0 Hct 39.0 MCV 74.5 L MCHC 33.4 RDW 14.8 Plt Count 276 MPV 9.8 INR 1.04 PTT (Actin FS) 33.8 Sodium 141 Potassium 4.1 Chloride 103 Carbon Dioxide 27 Anion Gap 11 BUN 14 Creatinine 0.7 Random Glucose 130 H Calcium 9.2 Phosphorus 3.5 Magnesium 1.8 Active Medications Generic Name Dose Route Start Last Admin Trade Name Freq PRN Reason Stop Dose Admin Acetaminophen 650 mg 12/02/16 07:52 Tylenol - PO Q6H PRN FEVER OR PAIN Albuterol/Ipratropium 1 amp 12/01/16 10:56 Duoneb - NEB QIDR PRN Dyspnea Amlodipine Besylate 10 mg 12/02/16 10:00 12/05/16 10:46 Norvasc - PO 10 mg DAILY VERA Administration Atorvastatin Calcium 10 mg 12/01/16 22:00 12/05/16 21:12 Lipitor - PO 10 mg HS VERA Administration Heparin Sodium (Porcine) 5,000 unit 12/01/16 22:00 12/05/16 22:00 Heparin - SQ Not Given BID VERA Lisinopril 2.5 mg 12/02/16 10:00 12/05/16 10:46 Prinivil PO 2.5 mg DAILY VERA Administration Sodium Chloride 2 spray 12/02/16 22:07 12/02/16 22:15 [place] Nasal [place] - NS 2 sprays TID PRN Administration NASAL CONGESTION ASSESSMENT/PLAN: Visit type - Emergency Visit Emergency Visit: Yes ED Registration Date: 12/01/16 Care time: The patient presented to the Emergency Department on the above date and was hospitalized for further evaluation of their emergent condition. - New Patient This patient is new to me today: No - Critical Care Critical Care patient: Yes Total Critical Care Time (in minutes): 42 Critical Care Statement: The care of this patient involved high complexity decision making to prevent further life threatening deterioration of the patient 's condition and/or to evalute & treat vital organ system(s) failure or risk of failure.
[2016-12-06] MEDS: amLODIPine BESYLATE 10 MG TABLET (FP) PO SCH (11:09)
[2016-12-06] MEDS: HEPARIN NA (PORCINE) 5,000 UNITS/ML 1ML VIAL SQ SCH ×2 (11:09→21:33)
[2016-12-06] MEDS: LISINOPRIL 5 MG TABLET (FP) PO SCH (11:09)
--- NOTE | 2016-12-06 11:25 | PN ---
Teaching Attending Note Name of Resident: Renetta Pimentel ATTENDING PHYSICIAN STATEMENT I saw and evaluated the patient. I reviewed the resident's note and discussed the case with the resident. I agree with the resident's findings and plan as documented. SUBJECTIVE:no complaints. denies CP, SOB,fever, chills, N/V/C/D OBJECTIVE: Last Vital Signs Temp Pulse Resp BP Pulse Ox 98.0 F 73 16 139/83 99 12/06/16 06:00 12/06/16 06:00 12/06/16 06:00 12/06/16 06:00 12/06/16 09:00 General NAD speaking in clear sentences without respiratory distress HEENT no stridor, +thyromegaly, no nodules CV S1 S2 RRR no murmur/rub/gallop Lungs CTA B/L no wheezing/rales/rhonchi ASSESSMENT AND PLAN: 66yo F with PMH HTN presented to the ER and was admitted for further evaluation of their emergent condition 1. thyroid mass with tracheal compression-currently stable. high risk of respiratory collapse. low threshold for intervention. NPO for total thyroidectomy today. possibility of trach. CT surgery on board. supplemental oxygen to maintain spO2 >90% if cough doesnt resolve post-op consider d/c acei 2. Ecoli UTI- likely colonization. UA with trace LE no WBC. asymptomatic. no indication to treat at this time 3. Lactic acidosis- resolved 4. Lung nodule- +smoking history. will need repeat CT in 3 months 5. HTn- controlled. cont home medications 6. DVT ppx- hep sq The care of this patient involved high complexity decision making to prevent further life threatening deterioration of the patient's condition and/or to evalute & treat vital organ system(s) failure or risk of failure. 38 minutes critical care time
[2016-12-06] MEDS ORDERED: LIDOCAINE 1%/EPI 1:100000 (50 ML MULTI DOSE VIAL) ONE (11:27)
[2016-12-06] MEDS ORDERED: MICROFIBRILLAR COLLAGEN 1 GM EACH ONE (11:27)
[2016-12-06] MEDS ORDERED: PROPOFOL 20 ML ONE (11:52)
[2016-12-06] MEDS ORDERED: MIDAZOLAM HCL 2 MG/2 ML SINGLE DOSE VIAL ONE ×2 (11:52→13:27)
[2016-12-06] MEDS ORDERED: ROCURONIUM BROMIDE 50 MG/5 ML VIAL ONE (11:53)
--- NOTE | 2016-12-06 12:09 | PN ---
Teaching Attending Note Name of Resident: Shant Easley ATTENDING PHYSICIAN STATEMENT I saw and evaluated the patient. I reviewed the resident's note and discussed the case with the resident. I agree with the resident's findings and plan as documented. SUBJECTIVE: Patient seen and examined in the ICU. Breathing feels about the same. No CP or SOB. No fevers or chills. For OR today. OBJECTIVE: Intake & Output 12/03/16 12/04/16 12/05/16 12/06/16 23:59 23:59 23:59 23:59 Intake Total 1218 318 1853 Balance 0345 510 0780 Weight 199 lb 8.293 oz Last Vital Signs Temp Pulse Resp BP Pulse Ox 98.0 F 73 16 139/83 99 12/06/16 06:00 12/06/16 06:00 12/06/16 06:00 12/06/16 06:00 12/06/16 09:00 Active Medications Acetaminophen (Tylenol -) 650 mg PO Q6H PRN PRN Reason: FEVER OR PAIN Amlodipine Besylate (Norvasc -) 10 mg PO DAILY [facility] Last Admin: 12/06/16 11:09 Dose: Not Given Atorvastatin Calcium (Lipitor -) 10 mg PO HS [facility] Last Admin: 12/05/16 21:12 Dose: 10 mg Heparin Sodium (Porcine) (Heparin -) 5,000 unit SQ BID [facility] Last Admin: 12/06/16 11:09 Dose: Not Given Lisinopril (Prinivil) 2.5 mg PO DAILY [facility] Last Admin: 12/06/16 11:09 Dose: Not Given Sodium Chloride ([place] Nasal [place] -) 2 spray NS TID PRN PRN Reason: NASAL CONGESTION Last Admin: 12/02/16 22:15 Dose: 2 sprays Gen: NAD at rest Neck: thyromegaly, (-) stridor Heart: RRR Lung: distant breath sounds, no wheezes Abd: soft, nontender Ext: no edema Laboratory Results - last 24 hr 12/06/16 12/06/16 12/06/16 05:15 05:15 05:15 WBC 9.0 RBC 5.23 H Hgb 13.0 Hct 39.0 MCV 74.5 L MCHC 33.4 RDW 14.8 Plt Count 276 MPV 9.8 INR 1.04 PTT (Actin FS) 33.8 Sodium 141 Potassium 4.1 Chloride 103 Carbon Dioxide 27 Anion Gap 11 BUN 14 Creatinine 0.7 Random Glucose 130 H Calcium 9.2 Phosphorus 3.5 Magnesium 1.8 Blood Type Antibody Screen 12/06/16 05:15 WBC RBC Hgb Hct MCV MCHC RDW Plt Count MPV INR PTT (Actin FS) Sodium Potassium Chloride Carbon Dioxide Anion Gap BUN Creatinine Random Glucose Calcium Phosphorus Magnesium Blood Type O POSITIVE Antibody Screen Negative ASSESSMENT AND PLAN: Acute on Hypercapneic Respiratory Failure resolving Thyromegaly/Goiter with Tracheal Compression Lactic Acidosis resolved HTN Lung Nodule - Anticipated for OR today - O2 to keep SpO2 >90% - can attempt CPAP / BiPAP if respiratory status worsens - Will need outpt work up of lung nodule as she was a smoker Critical care time spent reviewing chart, evaluating patient and formulating plan [address] Steven
[2016-12-06] MEDS ORDERED: LIDOCAINE HCL 4% PRESERVE-FREE 5 ML AMP ONE (12:32)
[2016-12-06] MEDS ORDERED: ceFAZolin SODIUM 1 GM VIAL IVPB ONE (13:17)
[2016-12-06] MEDS ORDERED: LIDOCAINE HCL 2% JELLY 10 ML CARTRIDGE ONE (13:18)
[2016-12-06] MEDS ORDERED: BUPIVACAINE HCL/PF 0.5% (5MG/ML) 10 ML VIAL ONE (13:28)
[2016-12-06] MEDS ORDERED: HYDROmorphone HCL/PF 1 MG/ML VIAL (FOR PYXIS CHARGING ONLY) ONE ×2 (14:13→14:30)
[2016-12-06] MEDS ORDERED: ONDANSETRON 4 MG/2 ML VIAL ONE (15:46)
[2016-12-06] MEDS ORDERED: DEXAMETHASONE SOD PHOSPHATE 4 MG/1 ML VIAL ONE (15:46)
[2016-12-06] MEDS ORDERED: LABETALOL HCL 5 MG/1 ML (100MG/20 ML VIAL) ONE (16:06)
[2016-12-06] MEDS ORDERED: LABETALOL HCL 5 MG/1 ML (100MG/20 ML VIAL) IVPUSH ONE (16:37)
[2016-12-06] MEDS ORDERED: oxyCODONE HCL 5 MG TABLET PO PRN (16:42)
--- NOTE | 2016-12-06 16:44 | PN ---
Physical Exam: SUBJECTIVE: Patient seen and examined feeling good, breathing improved, surgery today. OBJECTIVE: Vital Signs Period Temp Pulse Resp BP Sys/Streeter Pulse Ox Last 24 Hr 97.8 F-98.7 F 67-88 12-20 116-166/65-94 98-99 GENERAL: The patient is awake, alert, and fully oriented, in no acute distress. HEAD: Normal with no signs of trauma. EYES: PERRL, extraocular movements intact, sclera anicteric, conjunctiva clear. No ptosis. NECK: thyromegaly LUNGS: Breath sounds equal, clear to auscultation bilaterally, no wheezes, no crackles, no accessory muscle use. HEART: Regular rate and rhythm, S1, S2 without murmur, rub or gallop. ABDOMEN: Soft, nontender, nondistended, normoactive bowel sounds, no guarding, no rebound, no hepatosplenomegaly, no masses. EXTREMITIES: 2+ pulses, warm, well-perfused, no edema. NEUROLOGICAL: Cranial nerves II through XII grossly intact. Normal speech, gait not observed. PSYCH: Normal mood, normal affect. SKIN: Warm, dry, normal turgor, no rashes or lesions noted Laboratory Results - last 24 hr 12/06/16 12/06/16 12/06/16 05:15 05:15 05:15 WBC 9.0 RBC 5.23 H Hgb 13.0 Hct 39.0 MCV 74.5 L MCHC 33.4 RDW 14.8 Plt Count 276 MPV 9.8 INR 1.04 PTT (Actin FS) 33.8 Sodium 141 Potassium 4.1 Chloride 103 Carbon Dioxide 27 Anion Gap 11 BUN 14 Creatinine 0.7 Random Glucose 130 H Calcium 9.2 Phosphorus 3.5 Magnesium 1.8 Blood Type Antibody Screen 12/06/16 05:15 WBC RBC Hgb Hct MCV MCHC RDW Plt Count MPV INR PTT (Actin FS) Sodium Potassium Chloride Carbon Dioxide Anion Gap BUN Creatinine Random Glucose Calcium Phosphorus Magnesium Blood Type O POSITIVE Antibody Screen Negative Active Medications Generic Name Dose Route Start Last Admin Trade Name Freq PRN Reason Stop Dose Admin Acetaminophen 650 mg 12/02/16 07:52 Tylenol - PO Q6H PRN FEVER OR PAIN Amlodipine Besylate 10 mg 12/02/16 10:00 12/06/16 11:09 Norvasc - PO Not Given DAILY VERA Atorvastatin Calcium 10 mg 12/01/16 22:00 12/05/16 21:12 Lipitor - PO 10 mg HS VERA Administration Heparin Sodium (Porcine) 5,000 unit 12/01/16 22:00 12/06/16 11:09 Heparin - SQ Not Given BID VERA Lisinopril 2.5 mg 12/02/16 10:00 12/06/16 11:09 Prinivil PO Not Given DAILY VERA Sodium Chloride 2 spray 12/02/16 22:07 12/02/16 22:15 [place] Nasal [place] - NS 2 sprays TID PRN Administration NASAL CONGESTION ASSESSMENT/PLAN: This is a 66 year old female with PMHx HTN and previous hypothyriod, currently not on thyroid medication, presented with worsening shortness of breath over the last two days. CT showing large goiter compressing trachea. Patient admitted for acute respiratory distress and evaluation of emergent condition. #Hypercapniec respiratory failure with lactic acidosis secondary to diffuse goiter compressing trachea -surgery today -CT imaging noted -lactic acidosis resolved -spirometry -aspiration precautions; elveate HOB -on 2L NC;O2 to keep SpO2 >90% #hx of hypothyroid: -thyroid function studies wnl #HTN: -lisinopril 2.5mg qd #HLD: -simvistatin 20mg qd #lung nodule found on CT: -f/u PET scan as outpatient FEN: Fluids: 125ml/hr NS Electrolytes: wnl Diet: soft VTE prophylaxis: n/a may go for surgery Disposition: ICU monitor airway surgery today Visit type - Emergency Visit Emergency Visit: Yes ED Registration Date: 12/01/16 Care time: The patient presented to the Emergency Department on the above date and was hospitalized for further evaluation of their emergent condition. - New Patient This patient is new to me today: Yes Date on this admission: 12/06/16 - Critical Care Critical Care patient: No
[2016-12-06] MEDS ORDERED: LACTATED RINGERS SOLUTION 1,000 ML IV SCH ×2 (16:45)
[2016-12-06] MEDS ORDERED: CALCIUM CARBONATE 650 MG TABLET PO ONE (16:49)
--- NOTE | 2016-12-06 16:56 | OP ---
Operative Note - Note: Operative Date: 12/06/16 Pre-Operative Diagnosis: Thyroid goiter leading to respiratory compromise Operation: Total thyroidectomy Post-Operative Diagnosis: Same as Pre-op Surgeon: Tu Lemos Blueprint Assembler: Adenike Pearl Anesthesiologist/PERFORMING ARTS TECHNICIANS: Dharmesh Tidwell Anesthesia: General Specimens Removed: Left thyroid lobe, Right thyroid lobe Estimated Blood Loss (mls): 30 Drains & Tubes with Location: CHANDLER, neck Fluid Volume Replaced (mls): 1,000 Operative Report Dictated: Yes
--- NOTE | 2016-12-06 17:02 | SURG ---
Surgery Data Management Associate Note Data Management Associate: Adenike Pearl PA-C Date of Service: 12/06/16 Diagnosis: Thyroid goiter leading to respiratory compromise Procedure: Total thyroidectomy I was present for the entirety of the operative procedure. For further detail, please refer to operative report. Visit type - Case Type Case Type: ED Admission - New patient This patient is new to me today: Yes Date on this admission: 12/06/16
[2016-12-06] MEDS ORDERED: CALCITRIOL 0.25 MCG CAPSULE (FP) PO ONE (18:00)
[2016-12-06] MEDS ORDERED: ACETAMINOPHEN 325 MG TABLET (FP) PO PRN (19:13)
[2016-12-06] MEDS ORDERED: SODIUM CHLORIDE NASAL SPRAY 44 ML BOTTLE NS PRN (19:13)
[2016-12-06] MEDS ORDERED: CEFAZOLIN 1 GM in DEXTROSE 5%-WATER - 50 ML IVPB SCH (21:00)
[2016-12-06] MEDS ORDERED: ATORVASTATIN CA 10 MG TABLET (FP) PO SCH (22:00)
--- NOTE | 2016-12-07 06:22 | OP ---
DATE OF OPERATION: 12/06/2016 SURGICAL ATTENDING: Nicole Thomas MD PREOPERATIVE DIAGNOSIS: Massive thyroid goiter. POSTOPERATIVE DIAGNOSIS: Massive thyroid goiter. ANESTHESIA: General endotracheal. PROCEDURE: Total thyroidectomy. DESCRIPTION OF PROCEDURE: The patient was taken into the operating room, placed in a supine position, endotracheally intubated, prepped and draped in the usual sterile fashion. Local anesthesia was administered, and a 9-cm horizontal incision was made in the mid neck and carried down through subcutaneous tissues and platysma. Subplatysmal flaps were raised superiorly and inferiorly, and flap hooks were placed for exposure. The mean raphe was incised, and the strap muscles were elevated off the thyroid gland bilaterally. Dissection began on the left side where the recurrent laryngeal nerve was identified, dissected, and preserved. The superior laryngeal nerve was also preserved. The left inferior parathyroid gland was peeled off of the thyroid. The left superior parathyroid gland was also preserved intact. The superior pole, posterior and inferior attachments, was transected with the LigaSure. The isthmus was transected, and this way, the left thyroid lobe was removed. It was examined for parathyroid tissue, and none was found. The right recurrent laryngeal nerve and superior laryngeal nerve were identified, dissected, and preserved. The parathyroid glands on the right side were preserved. The superior, posterior, and inferior attachments were transected with the LigaSure. In this way, the right lobe was removed. It was inspected for parathyroid tissue, and none was found. Both lobes were then removed from the field and sent to Pathology for evaluation. Hemostasis was achieved with electrocautery and Avitene. Valsalva maneuvers were performed to ensure that no bleeding vessels were present. The wound was then closed in 3 layers, and a Hemovac drain was placed in the subplatysmal space. This was sutured to the skin. Dermabond was then placed. The patient was then extubated and awakened, and taken to the surgical ICU in stable condition. Dr. Thomas, the attending surgeon, was present throughout the entire procedure. NICOLE THOMAS M.D. [id number]
[2016-12-07] MEDS ORDERED: PT OWN MED DRAWER 7, Y5N ONE ×3 (06:28→10:53)
[2016-12-07 06:53] LABS: MCH 24.3 pg (25.7-33.7); MCHC 32.3 g/dl (32.0-36.0); MEAN PLT VOLUME 10.3 fl (7.5-11.1); PLATELET COUNT 213 K/MM3 (134-434); RDW 15.2 % (11.6-15.6); WHITE BLOOD COUNT 16.7 K/mm3 (4.0-10.0)
[2016-12-07] MEDS ORDERED: LEVOTHYROXINE NA 150 MCG TABLET PO SCH (07:00)
[2016-12-07 07:10] LABS: CALCIUM 9.1 mg/dL (8.5-10.1); COCKROFT - GAULT 107.95; CREATININE 0.7 mg/dL (0.55-1.02); MAGNESIUM 1.9 mg/dL (1.8-2.4); PHOSPHOROUS 4.3 mg/dL (2.5-4.9)
--- NOTE | 2016-12-07 08:20 | PN ---
Progress Note (short form) - Note Progress Note: Post op day#1.S/P Total thyroidectomy under GA uneventful.P 80,BP 120/63 and Spo2 100% on O2 4L N/C.Patient stable.No any anesthesia related problem.Patient DC from the anesthesia care.
--- NOTE | 2016-12-07 08:20 | PN ---
Progress Note (short form) - Note Progress Note: POD #1 Doing well. Alert. No acute events since surgery per RN notes. Resting in position of comfort. Denies cough, SOB, wheezing, CP, palpitations or diaphoresis. Last Vital Signs Temp Pulse Resp BP Pulse Ox 97.7 F 77 16 120/63 93 L 12/07/16 06:00 12/07/16 06:23 12/07/16 06:00 12/07/16 06:00 12/07/16 06:23 CBC, BMP 12/07/16 05:17 12/07/16 05:17 CHANDLER TREND 12/06/16 12/06/16 12/07/16 18:41 23:00 06:00 CHANDLER 50 25 10 Laboratory Tests 12/07/16 05:17 Calcium 9.1 PE Gen: alert. nad. Neck: soft. supple. incision c/d/i. no hematoma. CHANDLER serosanguinous Pulm: cta b/l anteriorly Cor: rrr Problem List - Problems (1) S/P thyroidectomy Assessment/Plan: POD #1 CHANDLER drain dc'd on rounds iv fluids dc'd Soft diet ordered Calcitrol 3mcg PO x1 Calcium Carbonate 2600mg x1 Downgrade to floor at ICU discretion Above discussed with Dr. Lemos and agrees Code(s): E89.0 - POSTPROCEDURAL HYPOTHYROIDISM (2) Acute respiratory distress Code(s): R06.00 - DYSPNEA, UNSPECIFIED
[2016-12-07] MEDS ORDERED: CALCIUM CARBONATE 650 MG TABLET PO ONE (09:00)
[2016-12-07] MEDS ORDERED: CALCITRIOL 0.25 MCG CAPSULE (FP) PO ONE ×2 (09:00→16:50)
[2016-12-07] MEDS ORDERED: amLODIPine BESYLATE 10 MG TABLET (FP) PO SCH (10:00)
[2016-12-07] MEDS ORDERED: CALCITRIOL 0.25 MCG CAPSULE (FP) PO SCH ×2 (10:00)
[2016-12-07] MEDS ORDERED: CALCIUM CARBONATE 650 MG TABLET PO SCH (10:00)
[2016-12-07] MEDS ORDERED: LISINOPRIL 5 MG TABLET (FP) PO SCH (10:00)
[2016-12-07] MEDS: HEPARIN NA (PORCINE) 5,000 UNITS/ML 1ML VIAL SQ SCH (10:20)
[2016-12-07 12:09] VITALS: TEMP 98.9
--- NOTE | 2016-12-07 12:32 | PN ---
Teaching Attending Note Name of Resident: Shant Easley ATTENDING PHYSICIAN STATEMENT I saw and evaluated the patient. I reviewed the resident's note and discussed the case with the resident. I agree with the resident's findings and plan as documented. SUBJECTIVE: Patient seen and examined in the ICU. No SOB or stridor overnight. Some mild, expected discomfort at the surgical site. No fevers or chills. Calcium level normal. OBJECTIVE: Intake & Output 12/04/16 12/05/16 12/06/16 12/07/16 23:59 23:59 23:59 23:59 Intake Total 680 1175 1200 450 Output Total 305 310 Balance 680 1175 895 140 Weight 199 lb 8.293 oz 193 lb 9.054 oz Last Vital Signs Temp Pulse Resp BP Pulse Ox 98.9 F 88 18 141/82 98 12/07/16 12:00 12/07/16 12:00 12/07/16 12:00 12/07/16 12:00 12/07/16 10:35 Active Medications Acetaminophen (Tylenol -) 650 mg PO Q6H PRN PRN Reason: FEVER OR PAIN Last Admin: 12/06/16 21:33 Dose: 650 mg Amlodipine Besylate (Norvasc -) 10 mg PO DAILY [facility] Last Admin: 12/07/16 10:20 Dose: 10 mg Atorvastatin Calcium (Lipitor -) 10 mg PO HS [facility] Last Admin: 12/06/16 21:33 Dose: 10 mg Heparin Sodium (Porcine) (Heparin -) 5,000 unit SQ BID [facility] Last Admin: 12/07/16 10:20 Dose: 5,000 unit Levothyroxine Sodium (Synthroid -) 150 mcg PO DAILY@0700 [facility] Last Admin: 12/07/16 06:39 Dose: 150 mcg Lisinopril (Prinivil) 2.5 mg PO DAILY [facility] Last Admin: 12/07/16 10:20 Dose: 2.5 mg Oxycodone HCl (Roxicodone -) 5 mg PO Q4H PRN PRN Reason: PAIN Last Admin: 12/07/16 02:36 Dose: 5 mg Sodium Chloride ([place] Nasal [place] -) 2 spray NS TID PRN PRN Reason: NASAL CONGESTION Gen: NAD at rest Neck: (-) stridor Heart: RRR Lung: distant breath sounds, no wheezes Abd: soft, nontender Ext: no edema Laboratory Results - last 24 hr 12/07/16 12/07/16 05:17 05:17 WBC 16.7 H D RBC 5.43 H Hgb 13.2 Hct 40.7 MCV 75.0 L MCHC 32.3 RDW 15.2 Plt Count 213 D MPV 10.3 Sodium 139 Potassium 4.3 Chloride 99 Carbon Dioxide 28 Anion Gap 12 BUN 12 Creatinine 0.7 Random Glucose 141 H Calcium 9.1 Phosphorus 4.3 D Magnesium 1.9 ASSESSMENT AND PLAN: Acute on Hypercapneic Respiratory Failure resolving Thyromegaly/Goiter with Tracheal Compression Lactic Acidosis resolved HTN Lung Nodule - Pain control - O2 to keep SpO2 >90% - Daily Synthroid - No smoking encouraged - Incentive Spirometry - VTE prophylaxis - Floor - Will need outpt work up of lung nodule as she was a smoker Critical care time spent reviewing chart, evaluating patient and formulating plan [address] Steven
--- NOTE | 2016-12-07 12:41 | PN ---
Physical Exam: SUBJECTIVE: Patient seen and examined POD #1 total thyroidectomy, tolerated surgery well, no complications, with drain from incision site, draining serosanguinous fluid. Denies chest pain, shortness of breath. Tolerating clear liq diet. OBJECTIVE: Vital Signs Period Temp Pulse Resp BP Sys/Streeter Pulse Ox Last 24 Hr 97.7 F-98.9 F 76-118 8-18 110-174/62-94 93-100 GENERAL: The patient is awake, alert, and fully oriented, in no acute distress. HEAD: Normal with no signs of trauma. NECK: Trachea midline,incision with drain in place, clean , intact, no leakage or surrounding erythema or edema LUNGS: Breath sounds equal, clear to auscultation bilaterally, no wheezes, no crackles, no accessory muscle use. HEART: Regular rate and rhythm, S1, S2 without murmur, rub or gallop. ABDOMEN: Soft, nontender, nondistended, normoactive bowel sounds, no guarding, no rebound, no hepatosplenomegaly, no masses. EXTREMITIES: 2+ pulses, warm, well-perfused, no edema. NEUROLOGICAL: Cranial nerves II through XII grossly intact. Normal speech, gait not observed. PSYCH: Normal mood, normal affect. SKIN: Warm, dry, normal turgor, no rashes or lesions noted Laboratory Results - last 24 hr 12/07/16 12/07/16 05:17 05:17 WBC 16.7 H D RBC 5.43 H Hgb 13.2 Hct 40.7 MCV 75.0 L MCHC 32.3 RDW 15.2 Plt Count 213 D MPV 10.3 Sodium 139 Potassium 4.3 Chloride 99 Carbon Dioxide 28 Anion Gap 12 BUN 12 Creatinine 0.7 Random Glucose 141 H Calcium 9.1 Phosphorus 4.3 D Magnesium 1.9 Active Medications Generic Name Dose Route Start Last Admin Trade Name Freq PRN Reason Stop Dose Admin Acetaminophen 650 mg 12/06/16 19:13 12/06/16 21:33 Tylenol - PO 650 mg Q6H PRN Administration FEVER OR PAIN Amlodipine Besylate 10 mg 12/07/16 10:00 12/07/16 10:20 Norvasc - PO 10 mg DAILY VERA Administration Atorvastatin Calcium 10 mg 12/06/16 22:00 12/06/16 21:33 Lipitor - PO 10 mg HS VERA Administration Heparin Sodium (Porcine) 5,000 unit 12/06/16 22:00 12/07/16 10:20 Heparin - SQ 5,000 unit BID VERA Administration Levothyroxine Sodium 150 mcg 12/07/16 07:00 12/07/16 06:39 Synthroid - PO 150 mcg DAILY@0700 VERA Administration Lisinopril 2.5 mg 12/07/16 10:00 12/07/16 10:20 Prinivil PO 2.5 mg DAILY VERA Administration Oxycodone HCl 5 mg 12/06/16 16:42 12/07/16 02:36 Roxicodone - PO 5 mg Q4H PRN Administration PAIN Sodium Chloride 2 spray 12/06/16 19:13 [place] Nasal [place] - NS TID PRN NASAL CONGESTION IMAGING: CT imaging noted ASSESSMENT/PLAN: This is a 66 year old female with PMHx HTN and previous hypothyriod, currently not on thyroid medication, presented with worsening shortness of breath over the last two days. CT showing large goiter compressing trachea. Patient admitted for acute respiratory distress and evaluation of emergent condition. #Hypercapniec respiratory failure with lactic acidosis secondary to diffuse goiter compressing trachea: POD #1 total thyroidectomy -lactic acidosis resolved -sat 100% 2L NC keep SpO2 >90% -incentive spirometry -aspiration precautions; elveate HOB -trend calcium #hx of hypothyroid: -thyroid function studies wnl #HTN: -lisinopril 2.5mg qd #HLD: -simvistatin 20mg qd #lung nodule found on CT: -f/u PET scan as outpatient FEN: Fluids: po Electrolytes: wnl Diet: advance as tolerated soft VTE prophylaxis:heparin Disposition: s/p surgery Visit type - Emergency Visit Emergency Visit: Yes ED Registration Date: 12/01/16 Care time: The patient presented to the Emergency Department on the above date and was hospitalized for further evaluation of their emergent condition. - New Patient This patient is new to me today: No - Critical Care Critical Care patient: Yes Total Critical Care Time (in minutes): 35 Critical Care Statement: The care of this patient involved high complexity decision making to prevent further life threatening deterioration of the patient 's condition and/or to evalute & treat vital organ system(s) failure or risk of failure.
--- NOTE | 2016-12-07 13:22 | PN ---
Physical Exam: SUBJECTIVE: Patient seen and examined at bed side in ICU. breathing improved denies fevers, chills, N/V/D, Cp, SOB. NPO over night POD#1 Ca++ level this AM normal. OBJECTIVE: Vital Signs Period Temp Pulse Resp BP Sys/Streeter Pulse Ox Last 24 Hr 97.7 F-98.9 F 76-118 8-18 110-174/62-94 93-100 GENERAL: Awake, alert, and fully oriented, in no acute distress. pleasantly sitting in bed, breathing comfortably, no Strider heard heard at bed side. HEAD: Normal with no signs of trauma. EYES: extraocular movements intact, sclera anicteric, conjunctiva clear. EARS, NOSE, THROAT: Oral cavity no lesion, ears normal, nares patent, oropharynx clear without exudates. Moist mucous membranes. NECK: Normal range of motion, surgical scare clean, dry , no drainage. LUNGS: clear to ausculation bilatery, good air intake. No wheezes, and no crackles. No accessory muscle use. HEART: prominent superficial veins on chest possible collateral circulation, Regular rate and rhythm, normal S1 and S2 without murmur, rub or gallop. ABDOMEN: Obese abdomin, Soft, nontender, not distended, normoactive bowel sounds , no guarding, no rebound, no masses. No hepatomegaly or splenomegaly. MUSCULOSKELETAL: Normal range of motion at all joints. No bony deformities or tenderness. LOWER EXTREMITIES: 2+ pulses, warm, well-perfused. No calf tenderness. trace peripheral edema. NEUROLOGICAL: No facial asymmetry PSYCHIATRIC: Cooperative. Good eye contact. Appropriate mood and affect. SKIN: Warm, dry, normal turgor, Laboratory Results - last 24 hr 12/07/16 12/07/16 05:17 05:17 WBC 16.7 H D RBC 5.43 H Hgb 13.2 Hct 40.7 MCV 75.0 L MCHC 32.3 RDW 15.2 Plt Count 213 D MPV 10.3 Sodium 139 Potassium 4.3 Chloride 99 Carbon Dioxide 28 Anion Gap 12 BUN 12 Creatinine 0.7 Random Glucose 141 H Calcium 9.1 Phosphorus 4.3 D Magnesium 1.9 Active Medications Generic Name Dose Route Start Last Admin Trade Name Freq PRN Reason Stop Dose Admin Acetaminophen 650 mg 12/06/16 19:13 12/06/16 21:33 Tylenol - PO 650 mg Q6H PRN Administration FEVER OR PAIN Amlodipine Besylate 10 mg 12/07/16 10:00 12/07/16 10:20 Norvasc - PO 10 mg DAILY VERA Administration Atorvastatin Calcium 10 mg 12/06/16 22:00 12/06/16 21:33 Lipitor - PO 10 mg HS VERA Administration Heparin Sodium (Porcine) 5,000 unit 12/06/16 22:00 12/07/16 10:20 Heparin - SQ 5,000 unit BID VERA Administration Levothyroxine Sodium 150 mcg 12/07/16 07:00 12/07/16 06:39 Synthroid - PO 150 mcg DAILY@0700 VERA Administration Lisinopril 2.5 mg 12/07/16 10:00 12/07/16 10:20 Prinivil PO 2.5 mg DAILY VERA Administration Oxycodone HCl 5 mg 12/06/16 16:42 12/07/16 02:36 Roxicodone - PO 5 mg Q4H PRN Administration PAIN Sodium Chloride 2 spray 12/06/16 19:13 [place] - NS TID PRN NASAL CONGESTION ASSESSMENT/PLAN: 66YF with PMH of HTN, hypothyroid (previously on levothyroxine), former smoker presents to ED with dyspnea. patient reports greater than a year and a half of progressive, constant, dyspnea, aggravated by activity. CT showing large goiter compressing trachea. POD#1 afebrile, vitals stable, clinically stable. Acute on Hypercapneic Respiratory Failure: Resolved. secondary to obstructive enlarged thyroid multilobular Goiuter. s/p thyroidectomy Stryder present: Resolved -incentive spirometry -aspiration precautions; elveate HOB -sat 100% 2L NC keep SpO2 >90% -trend calcium hypothyroid: thyroid function studies wnl Lactic Acidosis: resolved HTN: Controlled on home Amlodipine, Lisinopril HLD: -simvastatin 20mg qd leukocytosis: resolved: reactive Lung Nodule- hx smoking monitor as outpatient repeat CT in 3-6 months no urinary symptoms, UA negative, U cultures grew Ecoli, no antibiotics at this time. FEN: Fluids: oral hydration Electrolytes:Replete as needed Diet:soft No indication for GI prophylaxis DVT prophylaxis: heparin sq Dispo: continue ICU monitoring for tenuous respiratory status Visit type - Emergency Visit Emergency Visit: Yes ED Registration Date: 12/01/16 Care time: The patient presented to the Emergency Department on the above date and was hospitalized for further evaluation of their emergent condition. - New Patient This patient is new to me today: No - Critical Care Critical Care patient: Yes Total Critical Care Time (in minutes): 42 Critical Care Statement: The care of this patient involved high complexity decision making to prevent further life threatening deterioration of the patient 's condition and/or to evalute & treat vital organ system(s) failure or risk of failure.
--- NOTE | 2016-12-07 13:28 | PN ---
Teaching Attending Note Name of Resident: Renetta Pimentel ATTENDING PHYSICIAN STATEMENT I saw and evaluated the patient. I reviewed the resident's note and discussed the case with the resident. I agree with the resident's findings and plan as documented. SUBJECTIVE: Patient has no complaints. OBJECTIVE: Vital Signs Period Temp Pulse Resp BP Sys/Streeter Pulse Ox Last 24 Hr 97.7 F-98.9 F 76-118 8-18 110-174/62-94 93-100 NECK: Horizontal surgical incision, clean HEART: S1 S2, tachycardic LUNGS: Clear ABDOMEN: Obese, soft, non-tender, non-distended, normal BS EXTREMITIES: No edema ASSESSMENT AND PLAN: This is a 66-year-old woman with a history of HTN, hyperlipidemia who presented to the ER with shortness of breath with exertion. 1. Thyroid mass with tracheal compression - s/p thyroidectomy 12/06 - Continue Synthroid 2. Acute hypercapnic respiratory failure secondary to tracheal obstruction - Resolved 3. Asymptomatic bacteriuria 4. Lactic acidosis - Resolved 5. Lung nodule - Repeat CT in 3 months 6. HTN - Continue Norvasc 7. Hyperlipidemia - Continue Lipitor
[2016-12-07 14:12] VITALS: BP 116/76; PULSE 86
[2016-12-07] MEDS ORDERED: ACETAMINOPHEN 325 MG TABLET (FP) PO PRN (15:17)
[2016-12-07] MEDS ORDERED: oxyCODONE HCL 5 MG TABLET PO PRN (15:17)
[2016-12-07] MEDS ORDERED: SODIUM CHLORIDE NASAL SPRAY 44 ML BOTTLE NS PRN (15:17)
--- NOTE | 2016-12-07 19:00 | PN ---
Progress Note (short form) - Note Progress Note: postop day#1 total thyroidectomy. Feeling very well, breathing is much improved , voice is normal and strong, ate food well today, ambulating and voiding well. Minimal pain. No complaints. Wound CDI, no chvostek's sign. Calcium 9.1 DC home on calcium, calcitriol and levothyroxine. RTO next appointment and any emergency call [phone]
[2016-12-07] MEDS ORDERED: ATORVASTATIN CA 10 MG TABLET (FP) PO SCH (22:00)
[2016-12-07] MEDS ORDERED: HEPARIN NA (PORCINE) 5,000 UNITS/ML 1ML VIAL SQ SCH (22:00)
[2016-12-08] MEDS ORDERED: LEVOTHYROXINE NA 150 MCG TABLET PO SCH (07:00)
--- NOTE | 2016-12-08 07:52 | DS ---
Physical Exam: SUBJECTIVE: Patient seen and examined; doing well, no pain, O2 100% on RA. Drain out. Tolerating soft diet. OBJECTIVE: Vital Signs Period Temp Pulse Resp BP Sys/Streeter Pulse Ox Last 24 Hr 98.9 F-98.9 F 83-88 16-18 116-145/76-82 93-98 PHYSICAL EXAM GENERAL: The patient is awake, alert, and fully oriented, in no acute distress. HEAD: Normal with no signs of trauma. NECK: neck incision clean dry intact, no erythema, no edema LUNGS: Breath sounds equal, clear to auscultation bilaterally, no wheezes, no crackles, no accessory muscle use. HEART: Regular rate and rhythm, S1, S2 without murmur, rub or gallop. ABDOMEN: Soft, nontender, nondistended, normoactive bowel sounds, no guarding, no rebound, no hepatosplenomegaly, no masses. EXTREMITIES: 2+ pulses, warm, well-perfused, no edema. NEUROLOGICAL: Cranial nerves II through XII grossly intact. Normal speech, gait not observed. PSYCH: Normal mood, normal affect. SKIN: Warm, dry, normal turgor, no rashes or lesions noted. LABS HOSPITAL COURSE: Date of Admission:12/01/16 Date of Discharge: 12/08/16 This is a 66 year old female with PMHx HTN and previous hypothyriod, currently not on thyroid medication, presented with worsening shortness of breath. CT showing large goiter compressing trachea. Patient admitted for acute respiratory distress and evaluation of emergent condition. #Hypercapniec respiratory failure with lactic acidosis secondary to diffuse goiter compressing trachea: POD #1 total thyroidectomy -intial lactic acidosis resolved; oxygen was kept >90% with nasal cannula, which she did not need upon discharge -aspiration precautions; elevate HOB -tolerated soft diet -calcium was within normal limits -discharge home on calcium, calcitriol and levothyroxine #HTN: -lisinopril 2.5mg qd #HLD: -simvistatin 20mg qd #lung nodule found on CT: -f/u PET scan as outpatient VTE prophylaxis:heparin Disposition: s/p surgery Will follow up with surgeon next appointment and any emergency call [phone] Minutes to complete discharge: 35 Discharge Summary Reason For Visit: LACTIC ACIDEMIA,ACUTE RESP DISTRESS Condition: Good - Instructions Referrals: Ga Montalvo MD [Primary Care Provider] - Tu Lemos MD [Staff Physician] - Disposition: HOME - Home Medications Comprehensive Discharge Medication List: Ambulatory Orders Amlodipine Besylate [Norvasc -] 10 mg PO DAILY 12/01/16 Lisinopril [Zestril] 2.5 mg PO DAILY 12/01/16 Omeprazole 20 mg PO DAILY 12/01/16 Simvastatin [Zocor -] 20 mg PO HS 12/01/16 Calcitriol [Rocaltrol] 0.5 mcg PO DAILY #30 capsule 12/07/16 Calcium Carbonate/Vitamin D3 [Calcium 500 mg Chewable Tablet] 3 each PO BID # 120 tab.chew 12/07/16 Levothyroxine [Synthroid -] 150 mcg PO DAILY #30 tablet 12/07/16 This patient is new to me today: No Emergency Visit: Yes ED Registration Date: 12/01/16 Care time: The patient presented to the Emergency Department on the above date and was hospitalized for further evaluation of their emergent condition. Critical Care patient: No - Discharge Referral Referred to [facility] Med P.C.: No
[2016-12-08] MEDS ORDERED: amLODIPine BESYLATE 10 MG TABLET (FP) PO SCH (10:00)
[2016-12-08] MEDS ORDERED: LISINOPRIL 5 MG TABLET (FP) PO SCH (10:00)
--- NOTE | 2016-12-08 13:54 | PATH ---
Surgical Pathology Report Patient Name: NASRA HARRELL Med. Rec. #: [id number] /Age/Gender: 1950 (Age: 66) / F Account: [id number] Location: [facility] MED/SURG Taken: 12/06/2016 Received: 12/07/2016 Reported: 12/08/2016 Physicians: Tu Lemos M.D. Specimen(s) Received A: LEFT THYROID LOBE B: RIGTH THYROID LOBE Clinical History Goiter thyroid Final Diagnosis A. THYROID GLAND, LEFT LOBE, TOTAL THYROIDECTOMY: BENIGN MULTINODULAR HYPERPLASIA WITH DEGENERATIVE CHANGES. B. THYROID GLAND, RIGHT LOBE, TOTAL THYROIDECTOMY: BENIGN MULTINODULAR HYPERPLASIA WITH DEGENERATIVE CHANGES. Electronically Signed Emmanuel Lowery M.D. Gross Description A. Received in formalin labeled "left thyroid lobe" is a 73 g, 9.0 x 5.5 x 4.0 cm thyroid lobe. The outer capsule is red-brown and intact. Sectioning reveals numerous heterogeneous, focally hemorrhagic, colloid appearing nodules. No normal thyroid parenchyma is identified. Commercial Real Estate Agent sections are sequentially submitted in 10 cassettes. B. Received in formalin labeled "right thyroid lobe" is a 144 g, 11.0 x 7.8 x 4.9 cm thyroid lobe. The outer capsule is red-brown and intact. Sectioning reveals numerous heterogeneous, focally hemorrhagic, colloid appearing nodules. No normal thyroid parenchyma is identified. Commercial Real Estate Agent sections are sequentially submitted in 14 cassettes 12/07/201612/07/2016
== END 2016-12-07 19:49 | disposition home or self-care (01) | DRG 404 ==
LOC: JER 07:05 → JERBED 10:57 → JICU 21:14 → J8W 12-07 14:22
PROVIDERS: ADMIT Internal Medicine; ATTEND Internal Medicine
PROC: 0GTH0ZZ Resection of Right Thyroid Gland Lobe, Open Approach (ICD-10-PCS; 2016-12-06)
PROC: 0GTG0ZZ Resection of Left Thyroid Gland Lobe, Open Approach (ICD-10-PCS; principal; 2016-12-06 12:00)
DX: E04.8 Other specified nontoxic goiter (principal); J96.02 Acute respiratory failure with hypercapnia; I10 Essential (primary) hypertension; E78.5 Hyperlipidemia, unspecified; E87.2 Acidosis; D72.829 Elevated white blood cell count, unspecified; R91.1 Solitary pulmonary nodule
CPT/HCPCS: 36415; 36600; 71010-TC; 71275-TC; 80048; 80053; 81003; 81015; 82550; 82803; 83605; 83735; 83880; 84100; 84439; 84443; 84484; 85025; 85027; 85610; 85730; 86850; 86900; 86901; 87040; 87086; 87186; 88307-TC; 90670; 93005; 93010; 94010; 99285-25; G0008; G0009; J1644; Q2037

== ENCOUNTER 2018-08-04 11:07 | Inpatient (IN) | payer OTHER ==
--- NOTE | 2018-08-04 11:26 | PDOC ---
History of Present Illness - General Chief Complaint: Headache Stated Complaint: INJURY Time Seen by Provider: 08/04/18 11:23 History Source: Patient Exam Limitations: No Limitations - History of Present Illness Initial Comments: 08/04/18 11:50 Mother came in with daughter with complaints of progressive headache pain. States 8 days ago woke up in the middle the night and stumbled falling striking the back of her head on edge of furniture. There was no LOC, however patient had a contusion. Was seen by PMD a few days later with complaints of headache, and was treated with anti-inflammatories. Inset time states pain has persisted, and has had no relief with anti-inflammatories or topical rubs in conservative measures. Daughter states mother trends towards excitable and multiple family members have made her concerned about possible significant injury therefore agreed to come to emergency department for evaluation. Daughter and patient deny any changes in mental status, no vomiting, no neurologic changes or weakness, no visual changes. States pain is generally wraparound and can target to the left eyebrow. It is not suffer from headaches and is just in general good health. Timing/Duration: reports: 24 hours Severity: Yes: mild, moderate Associated Symptoms: denies: confusion, fever/chills, loss of consciousness Past History - Travel Traveled outside of the country in the last 30 days: No Close contact w/someone who was outside of country & ill: No - Past Medical History Allergies/Adverse Reactions: Allergies Allergy/AdvReac Type Severity Reaction Status Date / Time No Known Allergies Allergy Verified 08/04/18 11:14 Home Medications: Ambulatory Orders Amlodipine Besylate [Norvasc -] 10 mg PO DAILY 12/01/16 Lisinopril [Zestril] 2.5 mg PO DAILY 12/01/16 Omeprazole 20 mg PO DAILY 12/01/16 Simvastatin [Zocor -] 20 mg PO HS 12/01/16 Calcitriol [Rocaltrol] 0.5 mcg PO DAILY #30 capsule 12/07/16 Calcium Carbonate/Vitamin D3 [Calcium 500 mg Chewable Tablet] 3 each PO BID # 120 tab.chew 12/07/16 Levothyroxine [Synthroid -] 150 mcg PO DAILY #30 tablet 12/07/16 Meloxicam [Mobic] 15 mg PO DAILY 30 Days #30 tablet MDD 15mg 01/19/18 COPD: No HTN: Yes Hypercholesterolemia: Yes Thyroid Disease: Yes - Family Disease History Family Disease History: Heart Disease: Father, Mother, Sister (SCD post OR @ 53) - Immunization History Immunization Up to Date: Yes - Suicide/Smoking/Psychosocial Hx Smoking History: Never smoked Have you smoked in the past 12 months: No Information on smoking cessation initiated: No Hx Alcohol Use: No Drug/Substance Use Hx: No Review of Systems - Review of Systems Able to Perform ROS?: Yes Is the patient limited Bulgarian proficient: Yes Constitutional: Yes: Symptoms Reported, See HPI HEENTM: Yes: Symptoms Reported, See HPI. No: Eye Pain, Double Vision Respiratory: Yes: See HPI. No: Symptoms reported, Cough, Wheezing Cardiac (ROS): No: Symptoms Reported ABD/GI: Yes: See HPI, Nausea. No: Symptoms Reported : No: Symptoms Reported All Other Systems: Reviewed and Negative *Physical Exam - Vital Signs Last Vital Signs Temp Pulse Resp BP Pulse Ox 97.9 F 79 20 156/79 99 08/04/18 11:10 08/04/18 11:10 08/04/18 11:10 08/04/18 11:10 08/04/18 11:10 - Physical Exam General Appearance: Yes: Nourished, Appropriately Dressed, Apparent Distress, Mild Distress HEENT: positive: LAMAR, Normal ENT Inspection, TMs Normal (no hematympanum ), Pharynx Normal, Sinus Tenderness, Other (wrap around scalp pain, with reproduced pain with pressure to occiput insertions. ). negative: Rhinorrhea Neck: positive: Tender (no cervical spine pain ), Supple. negative: Lymphadenopathy (R), Lymphadenopathy (L) Respiratory/Chest: positive: Lungs Clear, Normal Breath Sounds Gastrointestinal/Abdominal: positive: Soft. negative: Tender Musculoskeletal: positive: Normal Inspection Extremity: positive: Normal Inspection Integumentary: positive: Dry, Warm, Pale Neurologic: positive: interlocking installer II-XII NML intact, Fully Oriented, Alert, Normal Mood/ Affect, Normal Response, Motor Strength 5/5 Moderate Sedation - Procedure Monitoring Vital Signs: Procedure Monitoring Vital Signs Temperature 97.9 F 08/04/18 11:10 Pulse Rate 79 08/04/18 11:10 Respiratory Rate 20 08/04/18 11:10 Blood Pressure 156/79 08/04/18 11:10 O2 Sat by Pulse Oximetry (%) 99 12/21/18 11:10 ED Treatment Course - LABORATORY CBC & Chemistry Diagram: 08/04/18 13:39 08/04/18 13:39 Progress Note - Progress Note Progress Note: Patient received CAT scan with findings consistent with a possible pseudotumor cerebri, very small ventricles multiple changes including subdural bleeds qualified as chronic by Dr. Du, radiology. As this is a new finding and patient is complaints of headache opt for admission by . Case was turned over to HARSHA Holguin evaluation and. Admission purposes. Patient and family member updated plan *DC/Admit/Observation/Transfer Diagnosis at time of Disposition: Headache Qualifiers: Headache type: unspecified Headache chronicity pattern: acute headache Intractability: intractable Qualified Code(s): R51 - Headache - Discharge Dispostion Condition at time of disposition: Stable - Referrals - Patient Instructions - Post Discharge Activity
[2018-08-04] MEDS ORDERED: KETOROLAC TROMETHAMINE 60 MG/2 ML VIAL IM ONE (11:39)
[2018-08-04] MEDS ORDERED: KETOROLAC TROMETHAMINE 30 MG/1 ML VIAL ONE (11:42)
[2018-08-04 14:00] LABS: BASO % 1.4 % (0-2.0); EOS % 0.4 % (0-4.5); HEMATOCRIT 43.3 % (32.4-45.2); HEMOGLOBIN 13.5 GM/dL (10.7-15.3); LYMPH % 21.2 % (8-40); MCH 23.2 pg (25.7-33.7); MCHC 31.1 g/dl (32.0-36.0); MEAN CELL VOLUME 74.5 fl (80-96); MEAN PLT VOLUME 10.2 fl (7.5-11.1); PLATELET COUNT 288 K/MM3 (134-434); RBC 5.82 M/mm3 (3.60-5.2); RDW 15.2 % (11.6-15.6); WHITE BLOOD COUNT 10.5 K/mm3 (4.0-10.0)
--- NOTE | 2018-08-04 14:02 | PDOC ---
*Physical Exam - Vital Signs Last Vital Signs Temp Pulse Resp BP Pulse Ox 97.9 F 79 20 156/79 99 08/04/18 11:10 08/04/18 11:10 08/04/18 11:10 08/04/18 11:10 08/04/18 11:10 ED Treatment Course - LABORATORY CBC & Chemistry Diagram: 08/04/18 13:39 08/04/18 13:39 - Medications Given in the ED: ED Medications Discontinued Medications Generic Name Dose Route Start Last Admin Trade Name Radha PRN Reason Stop Dose Admin Ketorolac Tromethamine 30 mg 08/04/18 11:39 08/04/18 11:51 Toradol Injection - IM 08/04/18 11:40 30 mg ONCE ONE Administration *DC/Admit/Observation/Transfer Diagnosis at time of Disposition: Headache Qualifiers: Headache type: unspecified Headache chronicity pattern: acute headache Intractability: intractable Qualified Code(s): R51 - Headache - Discharge Dispostion Condition at time of disposition: Stable Decision to Admit order: Yes - Referrals Referrals: Ga Montalvo MD [Primary Care Provider] - - Patient Instructions - Post Discharge Activity
--- NOTE | 2018-08-04 14:21 | EKG ---
Test Reason : Blood Pressure : / mmHG Vent. Rate : 078 BPM Atrial Rate : 078 BPM P-R Int : 176 ms QRS Dur : 088 ms QT Int : 494 ms P-R-T Axes : 034 -20 005 degrees QTc Int : 563 ms NORMAL SINUS RHYTHM POSSIBLE LEFT ATRIAL ENLARGEMENT ANTEROLATERAL INFARCT , AGE UNDETERMINED ABNORMAL ECG WHEN COMPARED WITH ECG OF 02-DEC-2016 08:45, ANTERIOR INFARCT IS NOW PRESENT ANTEROLATERAL INFARCT IS NOW PRESENT CRITERIA FOR INFERIOR INFARCT ARE NO LONGER PRESENT NONSPECIFIC T WAVE ABNORMALITY NOW EVIDENT IN ANTEROLATERAL LEADS QT HAS LENGTHENED Confirmed by NAOMI BAUER, VANESSA ([id number]) on 08/04/2018 2:21:32 PM Referred By: Confirmed By:VANESSA SALGADO MD
[2018-08-04 14:22] LABS: INR 0.95 (0.83-1.09); PROTHROMBIN TIME (PATIENT) 11.2 SEC (9.7-13.0)
[2018-08-04 14:29] LABS: ALBUMIN 4.1 g/dl (3.4-5.0); ALK PHOS 120 U/L (45-117); ANION GAP 13 MMOL/L (8-16); BILIRUBIN,TOTAL 0.4 mg/dL (0.2-1); BLOOD UREA NITROGEN 10 mg/dL (7-18); CALCIUM 9.2 mg/dL (8.5-10.1); CHLORIDE 99 mmol/L (98-107); CO2 27 mmol/L (21-32); CREATININE 0.8 mg/dL (0.55-1.3); GLUCOSE,RANDOM 124 mg/dL (74-106); POTASSIUM 3.7 mmol/L (3.5-5.1); SGOT/AST 19 U/L (15-37); SGPT/ALT 18 U/L (13-61); SODIUM 139 mmol/L (136-145); TOT PROT 7.8 g/dl (6.4-8.2)
[2018-08-04] MEDS ORDERED: LORazepam 2 MG/ML SDV VIAL ONE (14:37)
[2018-08-04 14:47] LABS: URINE APPEARANCE CLEAR; URINE BILIRUBIN NEGATIVE (<2.0 mg/dL); URINE COLOR STRAW; URINE GLUCOSE (UA) NEGATIVE (NEGATIVE); URINE KETONE NEGATIVE (NEGATIVE); URINE LEUK ESTERASE NEGATIVE (NEGATIVE); URINE NITRITE NEGATIVE (NEGATIVE); URINE PROTEIN NEGATIVE (NEGATIVE); URINE UROBILINOGEN NEGATIVE mg/dL (0.2-1.0)
[2018-08-04] MEDS ORDERED: METOCLOPRAMIDE HCL INJECTION 10 MG/2 ML VIAL IVPB ONE (17:22)
[2018-08-04] MEDS ORDERED: METOCLOPRAMIDE HCL INJECTION 10 MG/2 ML VIAL ONE (17:43)
[2018-08-04 23:06] VITALS: BMI 30.7
--- NOTE | 2018-08-04 23:06 | HP ---
CHIEF COMPLAINT: headache PCP: Dr Hook HISTORY OF PRESENT ILLNESS: The patient is a 68 year old Pashto speaking female with a PMH of HTN, dyslipidemia, hypothyroidism, chronic headaches, that presented today complaining of headache that started after she fell week ago. The patient was sleeping and according to her daughter, she fell from the bed on the floor during sleep. The patient hit her head. The pain is located in frontal area, 6/ 10, constant, no radiation, alleviated with OTC pain medications. She denies dizziness, head laceration, LOC, nausea, vomiting, seizure, urination, double vision, blurred vision, balance problems. She fell from her bed 4 years ago and since then has railing installed in her bed. The patient had ECHO and nuclear stress test done at [facility] and was told it was normal. History was translated by the patient's daughter that was present at bedside. ER course was notable for: (1)CT head, MRI (2)CBC, CMP (3)EKG PAST MEDICAL HISTORY: as above PAST SURGICAL HISTORY: thyroidectomy 2 years ago, 2 c sections Social History: Smoking:denies Alcohol:denies Drugs: denies Family History: mother : DM, HTN chldren healthy Allergies No Known Allergies Allergy (Verified 08/04/18 11:14) HOME MEDICATIONS: Home Medications Medication Instructions Recorded Amlodipine Besylate [Norvasc -] 10 mg PO DAILY 12/01/16 Lisinopril [Zestril] 2.5 mg PO DAILY 12/01/16 Omeprazole 20 mg PO DAILY 12/01/16 Simvastatin [Zocor -] 20 mg PO HS 12/01/16 Calcitriol [Rocaltrol] 0.5 mcg PO DAILY #30 capsule 12/07/16 Calcium Carbonate/Vitamin D3 3 each PO BID #120 tab.chew 12/07/16 [Calcium 500 mg Chewable Tablet] Levothyroxine [Synthroid -] 150 mcg PO DAILY #30 tablet 12/07/16 Meloxicam [Mobic] 15 mg PO DAILY 30 Days #30 tablet 01/19/18 MDD 15mg REVIEW OF SYSTEMS CONSTITUTIONAL: Absent: fever, chills, diaphoresis, generalized weakness, malaise, loss of appetite, weight change HEENT: Absent: rhinorrhea, nasal congestion, ear pain, eye pain, visual changes CARDIOVASCULAR: Absent: chest pain, syncope, palpitations, irregular heart rate, lightheadedness , peripheral edema RESPIRATORY: Absent: cough, shortness of breath, dyspnea with exertion GASTROINTESTINAL: Absent: abdominal pain, abdominal distension, nausea, vomiting, diarrhea, constipation GENITOURINARY: Absent: dysuria, frequency, urgency, hesitancy, hematuria, flank pain, genital pain MUSCULOSKELETAL: Absent: myalgia, arthralgia, joint swelling, back pain, neck pain ENDOCRINE: Absent: unexplained weight gain, unexplained weight loss NEUROLOGIC: headache Absent: focal weakness or paresthesias, dizziness, unsteady gait, seizure, mental status changes, bladder or bowel incontinence PSYCHIATRIC: Absent: anxiety, depression PHYSICAL EXAMINATION Vital Signs - 24 hr 08/04/18 08/04/18 08/04/18 11:10 15:30 17:38 Temperature 97.9 F 98.0 F 98.5 F Pulse Rate 79 70 Pulse Rate [ 70 Left Apical] Respiratory 20 18 18 Rate Blood Pressure 156/79 122/63 Blood Pressure 134/70 [Right Arm] O2 Sat by Pulse 99 98 95 Oximetry (%) 08/04/18 08/04/18 18:30 19:41 Temperature 98.0 F 98.9 F Pulse Rate Pulse Rate [ 83 89 Left Apical] Respiratory 16 16 Rate Blood Pressure Blood Pressure 111/72 107/66 [Right Arm] O2 Sat by Pulse 97 95 Oximetry (%) GENERAL: Awake, alert, and fully oriented, in no acute distress. HEAD: Normal with no signs of trauma, no tenderness to palpation. EYES: Pupils equal, round and reactive to light, extraocular movements intact, sclera anicteric, conjunctiva clear. EARS, NOSE, THROAT: Ears normal, nares patent, oropharynx clear without exudates. Moist mucous membranes. NECK: Normal range of motion, supple without lymphadenopathy, JVD, or masses. LUNGS: Breath sounds equal, clear to auscultation bilaterally. No wheezes, and no crackles. No accessory muscle use. HEART: Regular rate and rhythm, normal S1 and S2 without murmur, rub or gallop. ABDOMEN: Soft, nontender, not distended, normoactive bowel sounds, no guarding, no rebound, no masses. MUSCULOSKELETAL: Normal range of motion at all joints. No bony deformities or tenderness. UPPER EXTREMITIES: No peripheral edema. LOWER EXTREMITIES: 2+ pulses, no peripheral edema. NEUROLOGICAL: Cranial nerves II-XII intact. Normal speech. PSYCHIATRIC: Cooperative. Good eye contact. Appropriate mood and affect. SKIN: Warm, dry, normal turgor, no rashes or lesions noted. Laboratory Results - last 24 hr 08/04/18 08/04/18 08/04/18 13:39 13:39 13:49 WBC 10.5 H RBC 5.82 H Hgb 13.5 Hct 43.3 MCV 74.5 L MCH 23.2 L MCHC 31.1 L RDW 15.2 Plt Count 288 MPV 10.2 Absolute Neuts (auto) 7.6 Neutrophils % 73.0 D Lymphocytes % 21.2 D Monocytes % 4.0 Eosinophils % 0.4 Basophils % 1.4 Nucleated RBC % 0 PT with INR 11.20 INR 0.95 Sodium 139 Potassium 3.7 Chloride 99 Carbon Dioxide 27 Anion Gap 13 BUN 10 Creatinine 0.8 Creat Clearance w eGFR > 60 Random Glucose 124 H Calcium 9.2 Total Bilirubin 0.4 AST 19 ALT 18 Alkaline Phosphatase 120 H Total Protein 7.8 Albumin 4.1 Urine Color Urine Appearance Urine pH Ur Specific Whiteside Urine Protein Urine Glucose (UA) Urine Ketones Urine Blood Urine Nitrite Urine Bilirubin Urine Urobilinogen Ur Leukocyte Esterase 08/04/18 14:30 WBC RBC Hgb Hct MCV MCH MCHC RDW Plt Count MPV Absolute Neuts (auto) Neutrophils % Lymphocytes % Monocytes % Eosinophils % Basophils % Nucleated RBC % PT with INR INR Sodium Potassium Chloride Carbon Dioxide Anion Gap BUN Creatinine Creat Clearance w eGFR Random Glucose Calcium Total Bilirubin AST ALT Alkaline Phosphatase Total Protein Albumin Urine Color Straw Urine Appearance Clear Urine pH 7.0 Ur Specific Whiteside 1.010 Urine Protein Negative Urine Glucose (UA) Negative Urine Ketones Negative Urine Blood Negative Urine Nitrite Negative Urine Bilirubin Negative Urine Urobilinogen Negative Ur Leukocyte Esterase Negative CT head; No acute intracranial hemorrhage is seen. Very small hypodense extra- axial fluid collection along the frontal lobes convexity similar in attenuation to the CSF with may represent chronic subdural hematomas versus hygromas. MRI of the brain may be considered for further evaluation. Generally small ventricular system, few cortical sulci are seen at the vertex . Clinically correlate for pseudotumor cerebri. Normal clemente-white matter differentiation. MRI brain: Small right-sided and very small left-sided panhemispheric chronic subdural hematomas are noted. A trace amount of subacute subdural blood is noted within the very small left-sided collection. There is resultant minimal to mild leftward midline displacement. Partial effacement of the cerebral sulci is noted bilaterally. Trace amounts of chronic subdural blood are also seen layering along the tentorium bilaterally and along the frontal interhemispheric fissure. The cerebellar tonsils appear slightly low in position. There is also slight inferior sagging in the optic chiasm and minimal to mild prominence of the superior border of the pituitary gland. Conceivably these appearances could be on the basis of intracranial hypotension (and/or secondary to mass effect associated with the previously described convexity subdural hematomas). Correlate clinically. ASSESSMENT/PLAN: The patient is a 68 year old Pashto speaking female with a PMH of HTN, dyslipidemia, hypothyroidism, chronic headaches, that presented today complaining of headache that started after she fell week ago. She is admitted for subdural hematoma and evaluation of pseudotumor cerebri. Subdural hematoma: -small subdural hematoma, followed by MRI -Dr Rivera consulted, will follow up recommendations: not a candidate for surgery, CT head in 24-48 hrs, Neurology consultation for possible pseudotumor cerebri -Toradol given for headache, will cont Tylenol overnight -neuro checks -fall risk precautions HTN: -continue Norvasc -low Na diet Hypothyroidism: -cont Synthroid 100 mcg Dyslipidemia: -cotinue Simvastatin 20 mg qd F/E/N: no/no changes/Low Na DVT PPX: -Lovenox 40 mg qd Dispo: med surg obs Problem List - Problem (1) Subdural hematoma Code(s): S06.5X9A - TRAUM SUBDR HEM W LOC OF UNSP DURATION, INIT (2) Headache Code(s): R51 - HEADACHE Qualifiers: Headache type: unspecified Headache chronicity pattern: acute headache Intractability: intractable Qualified Code(s): R51 - Headache (3) S/P thyroidectomy Code(s): E89.0 - POSTPROCEDURAL HYPOTHYROIDISM Visit type - Emergency Visit Emergency Visit: Yes ED Registration Date: 08/04/18 Care time: The patient presented to the Emergency Department on the above date and was hospitalized for further evaluation of their emergent condition. - New Patient This patient is new to me today: Yes Date on this admission: 08/05/18 - Critical Care Critical Care patient: No
--- NOTE | 2018-08-05 00:30 | PN ---
Teaching Attending Note Name of Resident: Michaelle Harrison ATTENDING PHYSICIAN STATEMENT I saw and evaluated the patient. I reviewed the resident's note and discussed the case with the resident. I agree with the resident's findings and plan as documented. SUBJECTIVE: Patient is a 68 year old Macedonian speaking woman with a PMH of HTN, dyslipidemia , thyroidectomy, hypothyroidism and chronic headaches, that presented today complaining of headache that started after she fell a week ago. The patient was sleeping and according to her daughter, she fell from the bed to the floor during sleep. The patient hit her head. She denies dizziness, head laceration, LOC, nausea, vomiting, seizure, urination, double vision, blurred vision, balance problems. She fell from her bed 4 years ago and since then has railing installed in her bed. The patient had ECHO and nuclear stress test done at [facility] and was told it was normal. History was translated by the patient's daughter that was present at bedside. OBJECTIVE: Alert Vital Signs Period Temp Pulse Resp BP Sys/Streeter Pulse Ox Last 24 Hr 97.9 F-98.9 F 70-89 16-20 107-156/63-79 95-99 HEENT: No Jaundice, eye redness or discharge, PERRLA, EOMI. Normocephalic, atraumatic. External ears are normal and hearing is grossly intact. No nasal discharge. Neck: Supple, nontender. No palpable adenopathy or thyromegaly. No JVD Chest: Good effort. Clear to auscultation and percussion. Heart: Regular. No S3, rub or murmur Abdomen: Not distended, soft, nontender and no HSM. No rebound or guarding. Normoactive bowel sounds. Ext: Peripheral pulses intact. No leg edema. Skin: Warm and dry. No petechiae, rash or ecchymosis. Neuro: Alert. Oriented x3. CN 2-12 grossly intact. Sensation grossly intact in all four extremities and DTR are symmetric. Current Medications Generic Name Dose Route Start Last Admin Trade Name Freq PRN Reason Stop Dose Admin Amlodipine Besylate 10 mg 08/05/18 22:00 Norvasc - PO HS VERA Levothyroxine Sodium 100 mcg 08/05/18 10:00 Synthroid - PO DAILY VERA Non-Formulary Medication 0.5 mcg 08/05/18 10:00 Calcitriol [Rocaltrol] PO DAILY [facility] Non-Formulary Medication 3 each 08/05/18 10:00 Calcium Carbonate/Vitamin D3 [Calcium 500 Mg Chewable Tablet] PO BID [facility] Non-Formulary Medication 12.5 mg 08/05/18 10:00 Lisinopril [Zestril] PO DAILY [facility] Non-Formulary Medication 20 mg 08/05/18 10:00 Omeprazole PO DAILY [facility] Non-Formulary Medication 20 mg 08/05/18 22:00 Simvastatin PO HS [facility] Home Medications Medication Instructions Recorded Amlodipine Besylate [Norvasc -] 10 mg PO HS 12/01/16 Lisinopril [Zestril] 12.5 mg PO DAILY 12/01/16 Omeprazole 20 mg PO DAILY 12/01/16 Simvastatin [Zocor -] 20 mg PO HS 12/01/16 Calcitriol [Rocaltrol] 0.5 mcg PO DAILY #30 capsule 12/07/16 Calcium Carbonate/Vitamin D3 3 each PO BID #120 tab.chew 12/07/16 [Calcium 500 mg Chewable Tablet] Levothyroxine [Synthroid -] 150 mcg PO DAILY #30 tablet 12/07/16 Meloxicam [Mobic] 15 mg PO DAILY 30 Days #30 tablet 01/19/18 MDD 15mg Abnormal Lab Results 08/04/18 08/04/18 13:39 13:39 WBC 10.5 H RBC 5.82 H MCV 74.5 L MCH 23.2 L MCHC 31.1 L Random Glucose 124 H Alkaline Phosphatase 120 H ASSESSMENT AND PLAN: 1. Fall/Headache/Subdural hematoma - CT and MRI show chronic as well as subacute subdural hematoma. Neurosurgeon Dr. Rivera consulted by the ER staff and he says surgery is not indicated at this time and that CT head should be repeated in 24-48 hour. Neurology consult for evaluation of pseudotumor cerebri was also recommended. Will continue to implement fall precuations, neurochecks and repeat TSH. Patient urged to stay well hydrated and also to avoid excessive use of Meloxicam. Check HbA1c. 2. DVT prophylaxis - Lovenox 40 mg SQ q 24 hours. 3. Advance directives - Full code
[2018-08-05] MEDS: ACETAMINOPHEN 325 MG TABLET (FP) PO PRN ×3 (05:19→17:01)
[2018-08-05] MEDS: LEVOTHYROXINE NA 100 MCG TABLET (FP) PO SCH (06:51)
[2018-08-05 07:52] LABS: BASO % 0.7 % (0-2.0); EOS % 1.1 % (0-4.5); HEMOGLOBIN 12.4 GM/dL (10.7-15.3); LYMPH % 33.7 % (8-40); MCH 23.6 pg (25.7-33.7); MCHC 31.9 g/dl (32.0-36.0); MEAN CELL VOLUME 73.9 fl (80-96); MEAN PLT VOLUME 9.8 fl (7.5-11.1); MONO % 5.6 % (3.8-10.2); NEUT % 58.9 % (42.8-82.8); PLATELET COUNT 252 K/MM3 (134-434); RBC 5.28 M/mm3 (3.60-5.2); RDW 15.3 % (11.6-15.6); WHITE BLOOD COUNT 8.6 K/mm3 (4.0-10.0)
[2018-08-05 08:15] LABS: ALBUMIN 3.3 g/dl (3.4-5.0); ALK PHOS 109 U/L (45-117); ANION GAP 8 MMOL/L (8-16); BILIRUBIN,TOTAL 0.4 mg/dL (0.2-1); BLOOD UREA NITROGEN 13 mg/dL (7-18); CALCIUM 8.4 mg/dL (8.5-10.1); CHLORIDE 103 mmol/L (98-107); CO2 28 mmol/L (21-32); CREATININE 0.8 mg/dL (0.55-1.3); GLUCOSE,RANDOM 137 mg/dL (74-106); MAGNESIUM 1.9 mg/dL (1.8-2.4); PHOSPHOROUS 3.6 mg/dL (2.5-4.9); POTASSIUM 3.7 mmol/L (3.5-5.1); SGOT/AST 17 U/L (15-37); SGPT/ALT 16 U/L (13-61); SODIUM 140 mmol/L (136-145); TOT PROT 6.6 g/dl (6.4-8.2)
--- NOTE | 2018-08-05 08:49 | PN ---
Progress Note (short form) - Note Progress Note: NEUROSURGERY CONSULT DICTATED Imaging studies reviewed Chart reviewed Pt examined Had advised Dr. Gunn of ED last night that I was not retail and promotions coordinator and would be leaving town today H/o HTN, hypercholesterolemia, hypothyroidism, chronic headaches, that presented today complaining of midline intraorbital headache that started after she fell a week ago from the bed on the floor during sleep. The patient hit back of her head. Pain is alleviated with OTC pain medications. She denies dizziness, LOC, nausea, vomiting, seizure, diplopia, weakness, numbness, balance problems. H/A better this am. PE: AF, VSS HEENT- small residual cephalohematoma R posterior parietal region; Neck- supple ; Cor- RRR; Lungs- CTA; Abd- benign; Ext- no sign of DVT CN- wearing glasses, non-focal; Motor- 5/5 without drift; Sensation- intact LT; DTR- hyporeflexic; Cerebellar- intact B FTN platelet 252, INR 0.[address]- thin hypodense B convexity thin (< 4mm) SDH with mild mass effect; R slightly > L with minimal midline mass effect; small ventricular size Brain MRI- subacute SDH-chronic with mild mass effect; no acute stroke; no edema Small subacute-chronic SDH R > L with mild mass effect Slit-like ventricles with ? preexisting pseudotumor (treatment would likely be medical only as any shunt procedure would exacerbate possible SDH) - consult neurology for evaluation and treatment No acute neurosurgical intervention recommended at this time as patient is feeling better No NSAIDS or AC given SDH Repeat head CT later today to ascertain stability of SDH and mass effect If clinical deterioration, should tx to tertiary institution
[2018-08-05] MEDS: CALCIUM 500MG/VIT-D 200 UNITS COMBO TABLET (FP) PO SCH ×2 (09:51→21:47)
[2018-08-05] MEDS: LISINOPRIL 5 MG TABLET (FP) PO SCH (09:51)
[2018-08-05] MEDS: CALCITRIOL 0.25 MCG CAPSULE (FP) PO SCH (09:51)
[2018-08-05] MEDS: PANTOPRAZOLE 20 MG TABLET (FP) PO SCH (09:52)
[2018-08-05] MEDS ORDERED: ENOXAPARIN NA (PORCINE) 40 MG/0.4 ML DISP.SYRIN SQ SCH (10:00)
[2018-08-05] MEDS ORDERED: PATIENT'S OWN MEDICATION (NON-FORMULARY) (Meloxicam [Mobic] 15 MG) PO SCH (10:00)
--- NOTE | 2018-08-05 10:18 | CONS ---
DATE OF CONSULTATION: 08/05/2018 REQUESTING PHYSICIAN: Dr. Covarrubias MOLDER CLOSED MOLDS: Jesus Cramer MD, Neurosurgery. CHIEF COMPLAINT: Headaches. HISTORY OF PRESENT ILLNESS: Ms. Mccallum is a 68-year-old right-handed female with history of hypertension, hypercholesterolemia, hypothyroidism, status post thyroidectomy, chronic intermittent headaches, who complains of 1+ week history of midline frontal infraorbital headaches. She stated that she has had headaches previously, but at a different location and different intensity. She had fallen 1 week ago while sleeping and likely hit the back of her head with a small cephalohematoma. She was taking [id number] pain medications with some relief. She has no associated nausea, vomiting, dizziness, diplopia, weakness, numbness, or balance problems. There is no bowel or bladder dysfunction, especially incontinence. Her headache is better this morning. PAST MEDICAL HISTORY: Is significant for thyroidectomy, hypothyroidism, hypertension, hypercholesterolemia, chronic headaches. MEDICATIONS: Current medications include Tylenol, Prinivil, Norvasc, Lipitor, Protonix, Os-Alexandro, Synthroid, calcitriol. ALLERGIES: There are no known drug allergies. FAMILY HISTORY: Noncontributory. SOCIAL HISTORY: She does not smoke or drink. She lives at home with her family. She does not work. REVIEW OF SYSTEMS: Otherwise negative for other major constitutional, head and neck, cardiovascular, pulmonary, gastrointestinal, genitourinary, endocrinologic, neurologic, or psychologic problems. She has no fever or chills, and she has no recent infections or any fresh wounds. PHYSICAL EXAMINATION: Vital signs: Temperature is 98.6, blood pressure is 128/74 with a pulse rate of 89, O2 saturation is 95% on room air. HEENT: Examination shows her to be normocephalic, atraumatic. There is a small residual cephalohematoma in the right posterior parietal region near the midline. Neck: Supple with no carotid bruit. Coronary: Examination demonstrated regular rhythm. Lungs: Clear to auscultation bilaterally. Abdomen: Benign. Extremities: Examination shows no signs of DVT. Neurologic: She is awake and alert and oriented x3. She is Stateless-speaking. Cranial nerve examination is intact 2-12. She wears glasses. Motor examination shows 5/5 strength without drift. Sensory examination intact to light touch. Deep tendon reflexes hyporeflexive throughout. There is no pathological long tract sign. Cerebellar examination demonstrated intact [id number] examination. LABORATORY EXAMINATION: Shows INR 0.95. White blood cell count is 8.6 (previously it was 10.5), hemoglobin is 12.4, and platelet count is 252,000. Sodium is 140, potassium is 3.7, BUN is 13, creatinine is 0.8, glucose is 137. Hemoglobin A1c is pending. Albumin is 3.3. LFTs are normal. Calcium is 8.4. CT scan of the head done yesterday demonstrated a slightly thickened calvarium. There is evidence of subdural fluid collection over the right greater than left convexity with thickness of 3-4 mm at the thickest and most. There is slight ventricle and slight [id number] mass effect. MRI of the brain demonstrated small right-sided greater than left-sided frontoparietal subdural fluid collection, which appears to be mostly chronic, but there is a small amount of subacute blood collection on the left. There is slight skuss-hi-xfrw-side mass effect. There is small appearing ventricular size. There is slight distended cerebellar tonsil in the upper cervical canal. The cerebellar tonsil descends to the level of the foramen magnum. IMPRESSION: 1. Subacute-chronic small biconvexity subdural hematoma with mild mass effect. 2. Slight ventricle and low-lying cerebellar tonsil, rule out underlying pseudo-tumor. 3. Hypertension. 4. Hypothyroidism, status post thyroidectomy. 5. Hypercholesterolemia. RECOMMENDATIONS: Ms. Mccallum has a history of chronic intermittent headaches. She has known recent visual changes. She had a mechanical fall about 1 week ago, and complains about infraorbital headaches. CT scan and MRI demonstrated subacute/chronic subdural fluid collection in the right greater than left lower convexity. There is slight mass effect. She has no focal neurological deficit, and her headache is slightly better today. No neurosurgical intervention is recommended for such a small subdural hematoma of less than 4 mm. She should have a followup CT scan in about 24 hours to ascertain the stability of the subdural fluid collection. She may have underlying pseudo-tumor previously because of her chronic intermittent headaches and MRI appearance of small ventricles with low-lying cerebellar tonsil. Neurology evaluation is recommended for chronic followup with treatment. Unfortunately, surgical intervention even if she does have pseudo-tumor is not seen as feasible because of her subdural hematoma which would likely be exacerbated by any shunting procedure down the line. I discussed the patients treatment and condition with her at her bedside. All questions were answered. If she does experience deterioration with some neurological deficits, transfer to a tertiary institution is appropriate. JESUS CRAMER M.D. SHANTANU/[id number]
[2018-08-05] MEDS ORDERED: oxyCODONE HCL 5 MG TABLET PO PRN (13:53)
--- NOTE | 2018-08-05 15:36 | CONSULT ---
Consult - text type - Consultation Consultation Note: NEUROLOGY CONSULTATION is greatly appreciated: Events and neuoradiology reviewed. Events discussed with daughter at the bedside who aides in translation. This 68 yo RH woman with h/o HTN, hypercholesterolemia, GERD and hypothyroidism is maintained on: Amlodipine Besylate; Lisinopril; Omeprazole; Simvastatin; Calcitriol ; Levothyroxine; and Meloxicam. Pt has had episodic headaches since age 29 induced by "stress and work." Frontal pressing and throbbing headaches, usually present in the morning upon awakening with nausea and photophobia. + FH of right-sided hemicranial headaches in her daughter. S/P fall in her bedroom about 1 week ago with possible head injury but no report of LOC. Found on bedroom floor by this daughter after she heard her mother calling for help. Since then has had daily, pressing, occipital headaches which wane. CT and MRI (reviewed) shows a moderate right and a small left convexity subdural hygroma with small venticles. No acute changes. CHRIS: Obese. No bruits. Neck supple. NEUO: Awake, alert. MS/speech: normal CN II-XII: normal. Fundi not visualized. Motor: No drift or tremor. Normal strength, tone bulk and reflexes. Normal ROSEMARY's. Toes downgoing. Coord: No FTN dystaxia Sensory: Normal. Romberg neg Gait: Sl. Shuffling. IMP: Essentailly Normal neurological exam. Chronic, intermittent, headaches c/w migraines. Subdural hygromas (probably too chronic to be caused by last weeks fall, but could have predisposed to the fall). Ventricular morphology is probably due to the subdural hygromas and probably not suggestive of pseudotumor. SUGGEST: Agree with CT monitoring. Ophthalmology consultation Begin Topiramate 25 mg BID x 2 days then 50 mg BID for migraine prophylaxis. Decadron, 10 mg IVPB x 1 dose then 4 mg QID x 2 days > 2 mg QID x 2 days > then 2 mg q 12 hrs x 1 week. Monitor blood glucose and BP Neuro f/u as out patient. I will be away next week and Dr. Recio will cover. Thank you very much, Armando Browne MD
[2018-08-05] MEDS ORDERED: DEXAMETHASONE SOD PHOSPHATE 20 MG/5 ML VIAL IVPB ONE (15:42)
--- NOTE | 2018-08-05 16:20 | PN ---
Progress Note (short form) - Note Progress Note: Patient is lying in bed c/o having severe headache 05/24, ice-pack on her head. family at bedside. Vital Signs Temperature 98.0 F 08/05/18 15:24 Pulse Rate 75 08/05/18 15:24 Respiratory Rate 18 08/05/18 15:24 Blood Pressure 152/84 08/05/18 15:24 O2 Sat by Pulse Oximetry (%) 96 08/05/18 08:27 GENERAL: Awake, alert, and fully oriented, in no acute distress. HEAD: Normal with no signs of trauma, no tenderness to palpation. EYES: Pupils equal, round and reactive to light, extraocular movements intact, sclera anicteric, conjunctiva clear. EARS, NOSE, THROAT: Ears normal, oropharynx clear without exudates. Moist mucous membranes. NECK: Normal range of motion, supple without lymphadenopathy, JVD, or masses. LUNGS: Breath sounds equal, clear to auscultation bilaterally. No wheezes, and no crackles. No accessory muscle use. HEART: Regular rate and rhythm, normal S1 and S2 without murmur, rub or gallop. ABDOMEN: Soft, nontender, not distended, normoactive bowel sounds, no guarding, no rebound, no masses. MUSCULOSKELETAL: Normal range of motion at all joints. No bony deformities or tenderness. EXTREMITIES: 2+ pulses, no peripheral edema. NEUROLOGICAL: Cranial nerves II-XII intact. Normal speech. PSYCHIATRIC: Cooperative. Good eye contact. Appropriate mood and affect. SKIN: Warm, dry, normal turgor, no rashes or lesions noted. CBCD WBC 8.6 K/mm3 (4.0-10.0) 08/05/18 07:15 RBC 5.28 M/mm3 (3.60-5.2) H 08/05/18 07:15 Hgb 12.4 GM/dL (10.7-15.3) 08/05/18 07:15 Hct 39.0 % (32.4-45.2) 08/05/18 07:15 MCV 73.9 fl (80-96) L 08/05/18 07:15 MCHC 31.9 g/dl (32.0-36.0) L 08/05/18 07:15 RDW 15.3 % (11.6-15.6) 08/05/18 07:15 Plt Count 252 K/MM3 (134-434) 08/05/18 07:15 MPV 9.8 fl (7.5-11.1) 08/05/18 07:15 CMP Sodium 140 mmol/L (136-145) 08/05/18 07:15 Potassium 3.7 mmol/L (3.5-5.1) 08/05/18 07:15 Chloride 103 mmol/L (98-107) 08/05/18 07:15 Carbon Dioxide 28 mmol/L (21-32) 08/05/18 07:15 Anion Gap 8 MMOL/L (8-16) 08/05/18 07:15 BUN 13 mg/dL (7-18) 08/05/18 07:15 Creatinine 0.8 mg/dL (0.55-1.3) 08/05/18 07:15 Creat Clearance w eGFR > 60 (>60) 08/05/18 07:15 Random Glucose 137 mg/dL (74-106) H 08/05/18 07:15 Calcium 8.4 mg/dL (8.5-10.1) L 08/05/18 07:15 Total Bilirubin 0.4 mg/dL (0.2-1) 08/05/18 07:15 AST 17 U/L (15-37) 08/05/18 07:15 ALT 16 U/L (13-61) 08/05/18 07:15 Alkaline Phosphatase 109 U/L (45-117) 08/05/18 07:15 Total Protein 6.6 g/dl (6.4-8.2) 08/05/18 07:15 Albumin 3.3 g/dl (3.4-5.0) L 08/05/18 07:15 Current Medications Generic Name Dose Route Start Last Admin Trade Name Freq PRN Reason Stop Dose Admin Acetaminophen 650 mg 08/05/18 00:28 08/05/18 11:00 Tylenol - PO 650 mg Q6H PRN Administration HEADACHE Amlodipine Besylate 10 mg 08/05/18 22:00 Norvasc - PO HS VERA Atorvastatin Calcium 10 mg 08/05/18 22:00 Lipitor - PO HS VERA Calcitriol 0.5 mcg 08/05/18 10:00 08/05/18 09:51 Rocaltrol - PO 0.5 mcg DAILY VERA Administration Calcium Carbonate/Cholecalciferol 3 tab 08/05/18 10:00 08/05/18 09:51 Os-Alexandro 500+D - PO 3 tab BID VERA Administration Dexamethasone 4 mg 08/06/18 00:01 Decadron - PO 08/07/18 23:59 Q6HPO VERA Dexamethasone 2 mg 08/08/18 00:01 Decadron - PO 08/10/18 23:59 Q6HPO VERA Levothyroxine Sodium 100 mcg 08/05/18 07:00 08/05/18 06:51 Synthroid - PO 100 mcg DAILY@0700 VERA Administration Lisinopril 12.5 mg 08/05/18 10:00 08/05/18 09:51 Prinivil PO 12.5 mg DAILY VERA Administration Pantoprazole Sodium 20 mg 08/05/18 10:00 08/05/18 09:52 Protonix - PO 20 mg DAILY VERA Administration Topiramate 25 mg 08/05/18 22:00 Topamax - PO 08/08/18 23:59 BID [facility] Topiramate 50 mg 08/09/18 00:01 Topamax - PO BID [facility] Home Medications Medication Instructions Recorded Amlodipine Besylate [Norvasc -] 10 mg PO HS 12/01/16 Lisinopril [Zestril] 12.5 mg PO DAILY 12/01/16 Omeprazole 20 mg PO DAILY 12/01/16 Simvastatin [Zocor -] 20 mg PO HS 12/01/16 Calcitriol [Rocaltrol] 0.5 mcg PO DAILY #30 capsule 12/07/16 Calcium Carbonate/Vitamin D3 3 each PO BID #120 tab.chew 12/07/16 [Calcium 500 mg Chewable Tablet] Levothyroxine [Synthroid -] 150 mcg PO DAILY #30 tablet 12/07/16 Meloxicam [Mobic] 15 mg PO DAILY 30 Days #30 tablet 01/19/[address] and MRI (reviewed) shows a moderate right and a small left convexity subdural hygroma with small venticles. No acute changes. CT head: No acute intracranial hemorrhage is seen. Very small hypodense extra- axial fluid collection along the frontal lobes convexity similar in attenuation to the CSF with may represent chronic subdural hematomas versus hygromas. MRI of the brain may be considered for further evaluation. Generally small ventricular system, few cortical sulci are seen at the vertex . Clinically correlate for pseudotumor cerebri. Normal clemente-white matter differentiation. MRI brain: Small right-sided and very small left-sided panhemispheric chronic subdural hematomas are noted. A trace amount of subacute subdural blood is noted within the very small left-sided collection. There is resultant minimal to mild leftward midline displacement. Partial effacement of the cerebral sulci is noted bilaterally. Trace amounts of chronic subdural blood are also seen layering along the tentorium bilaterally and along the frontal interhemispheric fissure. The cerebellar tonsils appear slightly low in position. There is also slight inferior sagging in the optic chiasm and minimal to mild prominence of the superior border of the pituitary gland. Conceivably these appearances could be on the basis of intracranial hypotension (and/or secondary to mass effect associated with the previously described convexity subdural hematomas). Correlate clinically. ASSESSMENT/PLAN: The patient is a 68 year old [place] speaking female with a PMH of HTN, dyslipidemia, hypothyroidism, chronic headaches, that presented today complaining of headache that started after she fell week ago. She is admitted for subdural hematoma and evaluation of pseudotumor cerebri. # Chronic Subdural hematoma/Hygroma: will repeat the head CT , Neurosurgeon seen the patient , no intervention at this time, will repeat the CT of the head this afternoon. # Acute headache: prescribed by Topiramate 25 mg BID x 2 days then 50 mg BID for migraine prophylaxis. Decadron, 10 mg IVPB x 1 dose then 4 mg QID x 2 days > 2 mg QID x 2 days > then 2 mg q 12 hrs x 1 week. will Monitor blood glucose and BP , opthalmo consult patient c/o having photophobia and slight sagging of the optic chiasm. # HTN: continue Norvasc # Hypothyroidism: cont Synthroid 100 mcg # Dyslipidemia: lipitor DVT PPX: SCDs GI Px: protonix NO NSAIDS OR ANY BLOOD THINNERS Visit type - Emergency Visit Emergency Visit: Yes ED Registration Date: 08/05/18 Care time: The patient presented to the Emergency Department on the above date and was hospitalized for further evaluation of their emergent condition. - New Patient This patient is new to me today: Yes Date on this admission: 08/05/18 - Critical Care Critical Care patient: Yes Total Critical Care Time (in minutes): 32 Critical Care Statement: The care of this patient involved high complexity decision making to prevent further life threatening deterioration of the patient 's condition and/or to evaluate & treat vital organ system(s) failure or risk of failure. - Discharge Referral Referred to [facility] Med P.C.: No
[2018-08-05 19:36] LABS: ANION GAP 8 MMOL/L (8-16); BLOOD UREA NITROGEN 11 mg/dL (7-18); CALCIUM 8.4 mg/dL (8.5-10.1); CHLORIDE 100 mmol/L (98-107); CO2 26 mmol/L (21-32); CREATININE 0.8 mg/dL (0.55-1.3); GLUCOSE,RANDOM 228 mg/dL (74-106); SODIUM 134 mmol/L (136-145)
[2018-08-05] MEDS ORDERED: PT OWN MED DRAWER 7, Y5N ONE (21:44)
[2018-08-05] MEDS: amLODIPine BESYLATE 10 MG TABLET (FP) PO SCH (21:47)
[2018-08-05] MEDS: ATORVASTATIN CA 10 MG TABLET (FP) PO SCH (21:47)
[2018-08-05] MEDS: TOPIRAMATE 25 MG TABLET (FP) PO SCH (21:47)
[2018-08-06] MEDS: DEXAMETHASONE 4 MG TABLET (FP) PO SCH ×4 (00:22→18:19)
[2018-08-06] MEDS: LEVOTHYROXINE NA 100 MCG TABLET (FP) PO SCH (05:59)
--- NOTE | 2018-08-06 08:09 | PN ---
Physical Exam: SUBJECTIVE: Patient seen and examined Headache much improved. At a 3/10 overnight and a little frontal area, no neck pain or rigidity. Feels good, able to walk to bathroom and freshen up on her own. OBJECTIVE: Vital Signs Period Temp Pulse Resp BP Sys/Streeter Pulse Ox Last 24 Hr 97.8 F-98.4 F 65-91 18-85 115-152/51-86 96 Vital Signs Temperature 98.2 F 08/06/18 09:00 Pulse Rate 76 08/06/18 09:00 Respiratory Rate 20 08/06/18 09:00 Blood Pressure 135/74 08/06/18 09:00 O2 Sat by Pulse Oximetry (%) 96 08/05/18 08:27 GENERAL: The patient is awake, alert, and fully oriented, in no acute respiratory or painful distress. HEAD: Normal with no signs of trauma. EYES: PERRL, extraocular movements intact ENT: moist mucous membranes. NECK: full range of motion, supple. LUNGS: Breath sounds equal, clear to auscultation bilaterally HEART: Regular rate and rhythm, S1, S2 ABDOMEN: Soft, nontender, nondistended, normoactive bowel sounds, no guarding EXTREMITIES: 2+ pulses, warm, well-perfused, no edema. NEUROLOGICAL: symmetrical face and tongue, 5/5 flexion and extension, UE and LE b/l, shoulder shrug, abduction and abduction 5/5 b/l UEs. Normal reflexes and tone and equal sensation. Cranial nerves II through XII grossly intact. Normal speech, gait not observed. PSYCH: Normal mood, normal affect. SKIN: Warm, dry, normal turgor, no rashes or lesions noted CBC, BMP 08/05/18 07:15 08/05/18 19:04 Laboratory Results - last 24 hr 08/05/18 08/05/18 08/05/18 07:15 07:15 19:04 Sodium 140 134 L Potassium 3.7 4.0 Chloride 103 100 Carbon Dioxide 28 26 Anion Gap 8 8 BUN 13 11 Creatinine 0.8 0.8 Creat Clearance w eGFR > 60 > 60 Random Glucose 137 H 228 H Hemoglobin A1c % 6.5 H Calcium 8.4 L 8.4 L Phosphorus 3.6 Magnesium 1.9 Total Bilirubin 0.4 AST 17 ALT 16 Alkaline Phosphatase 109 Total Protein 6.6 Albumin 3.3 L Active Medications Generic Name Dose Route Start Last Admin Trade Name Freq PRN Reason Stop Dose Admin Acetaminophen 650 mg 08/05/18 00:28 08/05/18 17:01 Tylenol - PO 650 mg Q6H PRN Administration HEADACHE Amlodipine Besylate 10 mg 08/05/18 22:00 08/05/18 21:47 Norvasc - PO 10 mg HS VERA Administration Atorvastatin Calcium 10 mg 08/05/18 22:00 08/05/18 21:47 Lipitor - PO 10 mg HS VERA Administration Calcitriol 0.5 mcg 08/05/18 10:00 08/05/18 09:51 Rocaltrol - PO 0.5 mcg DAILY VERA Administration Calcium Carbonate/Cholecalciferol 3 tab 08/05/18 10:00 08/05/18 21:47 Os-Alexandro 500+D - PO 3 tab BID VERA Administration Dexamethasone 4 mg 08/06/18 00:01 08/06/18 05:59 Decadron - PO 08/07/18 23:59 4 mg Q6HPO VERA Administration Dexamethasone 2 mg 08/08/18 00:01 Decadron - PO 08/10/18 23:59 Q6HPO VERA Levothyroxine Sodium 100 mcg 08/05/18 07:00 08/06/18 05:59 Synthroid - PO 100 mcg DAILY@0700 VERA Administration Lisinopril 12.5 mg 08/05/18 10:00 08/05/18 09:51 Prinivil PO 12.5 mg DAILY VERA Administration Pantoprazole Sodium 20 mg 08/05/18 10:00 08/05/18 09:52 Protonix - PO 20 mg DAILY VERA Administration Topiramate 25 mg 08/05/18 22:00 08/05/18 21:47 Topamax - PO 08/08/18 23:59 25 mg BID VERA Administration Topiramate 50 mg 08/09/18 00:01 Topamax - PO BID VERA Current Medications Acetaminophen (Tylenol -) 650 mg PO Q6H PRN PRN Reason: HEADACHE Last Admin: 08/05/18 17:01 Dose: 650 mg Amlodipine Besylate (Norvasc -) 10 mg PO HS VERA Last Admin: 08/05/18 21:47 Dose: 10 mg Atorvastatin Calcium (Lipitor -) 10 mg PO HS VERA Last Admin: 08/05/18 21:47 Dose: 10 mg Calcitriol (Rocaltrol -) 0.5 mcg PO DAILY [facility] Last Admin: 08/06/18 09:33 Dose: 0.5 mcg Calcium Carbonate/Cholecalciferol (Os-Alexandro 500+D -) 3 tab PO BID [facility] Last Admin: 08/06/18 09:34 Dose: 3 tab Dexamethasone (Decadron -) 4 mg PO Q6HPO [facility] Stop: 08/07/18 23:59 Last Admin: 08/06/18 18:19 Dose: 4 mg Dexamethasone (Decadron -) 2 mg PO Q6HPO [facility] Stop: 08/10/18 23:59 Levothyroxine Sodium (Synthroid -) 100 mcg PO DAILY@0700 [facility] Last Admin: 08/06/18 05:59 Dose: 100 mcg Lisinopril (Prinivil) 12.5 mg PO DAILY [facility] Last Admin: 08/06/18 09:32 Dose: 12.5 mg Pantoprazole Sodium (Protonix -) 20 mg PO DAILY [facility] Last Admin: 08/06/18 09:33 Dose: 20 mg Topiramate (Topamax -) 25 mg PO BID [facility] Stop: 08/08/18 23:59 Last Admin: 08/06/18 09:34 Dose: 25 mg Topiramate (Topamax -) 50 mg PO BID [facility] CT and MRI (reviewed) shows a moderate right and a small left convexity subdural hygroma with small venticles. No acute changes. CT head 08/04: No acute intracranial hemorrhage is seen. Very small hypodense extra-axial fluid collection along the frontal lobes convexity similar in attenuation to the CSF with may represent chronic subdural hematomas versus hygromas. MRI of the brain may be considered for further evaluation. Generally small ventricular system, few cortical sulci are seen at the vertex . Clinically correlate for pseudotumor cerebri. Normal clemente-white matter differentiation. MRI brain: Small right-sided and very small left-sided panhemispheric chronic subdural hematomas are noted. A trace amount of subacute subdural blood is noted within the very small left-sided collection. There is resultant minimal to mild leftward midline displacement. Partial effacement of the cerebral sulci is noted bilaterally. Trace amounts of chronic subdural blood are also seen layering along the tentorium bilaterally and along the frontal interhemispheric fissure. The cerebellar tonsils appear slightly low in position. There is also slight inferior sagging in the optic chiasm and minimal to mild prominence of the superior border of the pituitary gland. Conceivably these appearances could be on the basis of intracranial hypotension (and/or secondary to mass effect associated with the previously described convexity subdural hematomas). Correlate clinically. Repeat CT head 08/05: Stable subdural hematoma ASSESSMENT/PLAN: The patient is a 68 year old Portuguese speaking female with a PMH of HTN, dyslipidemia, hypothyroidism, chronic headaches, that presented today complaining of headache that started after she fell week ago. She is admitted for subdural hematoma and evaluation of pseudotumor cerebri. #Acute on Chronic Subdural hematoma: -small subdural hematoma, followed by MRI, repeat CT head stable -Dr Rivera consulted, not a candidate for surgery, CT head in 24-48 hrs, Neurology consultation for possible pseudotumor cerebri -Toradol given for headache, will cont Tylenol overnight -neuro checks -fall risk precautions -Avoid anticoagulation and NSAIDs # Acute headache: -Improving on Topiramate 25 mg BID x 2 days then 50 mg BID for migraine prophylaxis. -Decadron, 10 mg IVPB x 1 dose then 4 mg QID x 2 days > 2 mg QID x 2 days > then 2 mg q 12 hrs x 1 week. -opthalmo consult - photophobia and slight sagging of the optic chiasm. HTN: -continue Norvasc -low Na diet Hypothyroidism: -cont Synthroid 100 mcg # Dyslipidemia: -lipitor #Hyperglycemia: -Pt on steroids #GI Px: protonix #Prophylaxis -DVT - SCDs #Dispo: - Cont Med surg Visit type - Emergency Visit Emergency Visit: Yes ED Registration Date: 08/05/18 Care time: The patient presented to the Emergency Department on the above date and was hospitalized for further evaluation of their emergent condition. - New Patient This patient is new to me today: Yes Date on this admission: 08/06/18 - Critical Care Critical Care patient: No - Discharge Referral Referred to [facility] Med P.C.: No
--- NOTE | 2018-08-06 08:14 | PN ---
Teaching Attending Note Name of Resident: Yanira Keene ATTENDING PHYSICIAN STATEMENT I saw and evaluated the patient. I reviewed the resident's note and discussed the case with the resident. I agree with the resident's findings and plan as documented. SUBJECTIVE: Patient is comfortable with no acute distress. No Headache this morning, 10/22 vs 05/24. OBJECTIVE: Vital Signs Temperature 98.1 F 08/06/18 05:19 Pulse Rate 74 08/05/18 21:00 Respiratory Rate 85 H 08/06/18 05:19 Blood Pressure 133/76 08/06/18 05:19 O2 Sat by Pulse Oximetry (%) 96 08/05/18 08:27 GENERAL: Awake, alert, and fully oriented, in no acute distress. HEAD: Normal with no signs of trauma, no tenderness to palpation. EYES: Pupils equal, round and reactive to light, extraocular movements intact, sclera anicteric, conjunctiva clear. EARS, NOSE, THROAT: Ears normal, oropharynx clear without exudates. Moist mucous membranes. NECK: Normal range of motion, supple without lymphadenopathy, JVD, or masses. LUNGS: Breath sounds equal, clear to auscultation bilaterally. No wheezes, and no crackles. No accessory muscle use. HEART: Regular rate and rhythm, normal S1 and S2 without murmur, rub or gallop. ABDOMEN: Soft, nontender, not distended, normoactive bowel sounds, no guarding, no rebound, no masses. MUSCULOSKELETAL: Normal range of motion at all joints. No bony deformities or tenderness. EXTREMITIES: 2+ pulses, no peripheral edema. NEUROLOGICAL: Cranial nerves II-XII intact. Normal speech. PSYCHIATRIC: Cooperative. Good eye contact. Appropriate mood and affect. SKIN: Warm, dry, normal turgor, no rashes or lesions noted. CBCD WBC 8.6 K/mm3 (4.0-10.0) 08/05/18 07:15 RBC 5.28 M/mm3 (3.60-5.2) H 08/05/18 07:15 Hgb 12.4 GM/dL (10.7-15.3) 08/05/18 07:15 Hct 39.0 % (32.4-45.2) 08/05/18 07:15 MCV 73.9 fl (80-96) L 08/05/18 07:15 MCHC 31.9 g/dl (32.0-36.0) L 08/05/18 07:15 RDW 15.3 % (11.6-15.6) 08/05/18 07:15 Plt Count 252 K/MM3 (134-434) 08/05/18 07:15 MPV 9.8 fl (7.5-11.1) 08/05/18 07:15 CMP Sodium 134 mmol/L (136-145) L 08/05/18 19:04 Potassium 4.0 mmol/L (3.5-5.1) 08/05/18 19:04 Chloride 100 mmol/L (98-107) 08/05/18 19:04 Carbon Dioxide 26 mmol/L (21-32) 08/05/18 19:04 Anion Gap 8 MMOL/L (8-16) 08/05/18 19:04 BUN 11 mg/dL (7-18) 08/05/18 19:04 Creatinine 0.8 mg/dL (0.55-1.3) 08/05/18 19:04 Creat Clearance w eGFR > 60 (>60) 08/05/18 19:04 Random Glucose 228 mg/dL (74-106) H 08/05/18 19:04 Calcium 8.4 mg/dL (8.5-10.1) L 08/05/18 19:04 Total Bilirubin 0.4 mg/dL (0.2-1) 08/05/18 07:15 AST 17 U/L (15-37) 08/05/18 07:15 ALT 16 U/L (13-61) 08/05/18 07:15 Alkaline Phosphatase 109 U/L (45-117) 08/05/18 07:15 Total Protein 6.6 g/dl (6.4-8.2) 08/05/18 07:15 Albumin 3.3 g/dl (3.4-5.0) L 08/05/18 07:15 Current Medications Generic Name Dose Route Start Last Admin Trade Name Freq PRN Reason Stop Dose Admin Acetaminophen 650 mg 08/05/18 00:28 08/05/18 17:01 Tylenol - PO 650 mg Q6H PRN Administration HEADACHE Amlodipine Besylate 10 mg 08/05/18 22:00 08/05/18 21:47 Norvasc - PO 10 mg HS VERA Administration Atorvastatin Calcium 10 mg 08/05/18 22:00 08/05/18 21:47 Lipitor - PO 10 mg HS VERA Administration Calcitriol 0.5 mcg 08/05/18 10:00 08/05/18 09:51 Rocaltrol - PO 0.5 mcg DAILY VERA Administration Calcium Carbonate/Cholecalciferol 3 tab 08/05/18 10:00 08/05/18 21:47 Os-Alexandro 500+D - PO 3 tab BID VERA Administration Dexamethasone 4 mg 08/06/18 00:01 08/06/18 05:59 Decadron - PO 08/07/18 23:59 4 mg Q6HPO VERA Administration Dexamethasone 2 mg 08/08/18 00:01 Decadron - PO 08/10/18 23:59 Q6HPO VERA Levothyroxine Sodium 100 mcg 08/05/18 07:00 08/06/18 05:59 Synthroid - PO 100 mcg DAILY@0700 VERA Administration Lisinopril 12.5 mg 08/05/18 10:00 08/05/18 09:51 Prinivil PO 12.5 mg DAILY VERA Administration Pantoprazole Sodium 20 mg 08/05/18 10:00 08/05/18 09:52 Protonix - PO 20 mg DAILY VERA Administration Topiramate 25 mg 08/05/18 22:00 08/05/18 21:47 Topamax - PO 08/08/18 23:59 25 mg BID VERA Administration Topiramate 50 mg 08/09/18 00:01 Topamax - PO BID [facility] Home Medications Medication Instructions Recorded Amlodipine Besylate [Norvasc -] 10 mg PO HS 12/01/16 Lisinopril [Zestril] 12.5 mg PO DAILY 12/01/16 Omeprazole 20 mg PO DAILY 12/01/16 Simvastatin [Zocor -] 20 mg PO HS 12/01/16 Calcitriol [Rocaltrol] 0.5 mcg PO DAILY #30 capsule 12/07/16 Calcium Carbonate/Vitamin D3 3 each PO BID #120 tab.chew 12/07/16 [Calcium 500 mg Chewable Tablet] Levothyroxine [Synthroid -] 150 mcg PO DAILY #30 tablet 12/07/16 Meloxicam [Mobic] 15 mg PO DAILY 30 Days #30 tablet 01/19/[address] and MRI (reviewed) shows a moderate right and a small left convexity subdural hygroma with small venticles. No acute changes. CT head: No acute intracranial hemorrhage is seen. Very small hypodense extra- axial fluid collection along the frontal lobes convexity similar in attenuation to the CSF with may represent chronic subdural hematomas versus hygromas. MRI of the brain may be considered for further evaluation. Generally small ventricular system, few cortical sulci are seen at the vertex . Clinically correlate for pseudotumor cerebri. Normal clemente-white matter differentiation. MRI brain: Small right-sided and very small left-sided panhemispheric chronic subdural hematomas are noted. A trace amount of subacute subdural blood is noted within the very small left-sided collection. There is resultant minimal to mild leftward midline displacement. Partial effacement of the cerebral sulci is noted bilaterally. Trace amounts of chronic subdural blood are also seen layering along the tentorium bilaterally and along the frontal interhemispheric fissure. The cerebellar tonsils appear slightly low in position. There is also slight inferior sagging in the optic chiasm and minimal to mild prominence of the superior border of the pituitary gland. Conceivably these appearances could be on the basis of intracranial hypotension (and/or secondary to mass effect associated with the previously described convexity subdural hematomas). Correlate clinically. ASSESSMENT/PLAN: The patient is a 68 year old [place] speaking female with a PMH of HTN, dyslipidemia, hypothyroidism, chronic headaches, that presented today complaining of headache that started after she fell week ago. She is admitted for subdural hematoma and evaluation of pseudotumor cerebri. # Chronic Subdural hematoma/Hygroma: repeat head CT , no change, Neurosurgeon seen the patient , no intervention at this time. # Acute headache: improved prescribed by Topiramate 25 mg BID x 2 days then 50 mg BID for migraine prophylaxis. Decadron, 10 mg IVPB x 1 dose then 4 mg QID x 2 days > 2 mg QID x 2 days > then 2 mg q 12 hrs x 1 week. will Monitor blood glucose and BP , opthalmo consult appreciated, wrote a paper documentation , no edema or swelling. appreciated. # HTN: continue Norvasc # Hypothyroidism: cont Synthroid 100 mcg # Dyslipidemia: lipitor DVT PPX: SCDs GI Px: protonix NO NSAIDS OR ANY BLOOD THINNERS
[2018-08-06] MEDS: LISINOPRIL 5 MG TABLET (FP) PO SCH (09:32)
[2018-08-06] MEDS: PANTOPRAZOLE 20 MG TABLET (FP) PO SCH (09:33)
[2018-08-06] MEDS: CALCITRIOL 0.25 MCG CAPSULE (FP) PO SCH (09:33)
[2018-08-06] MEDS: TOPIRAMATE 25 MG TABLET (FP) PO SCH ×2 (09:34→21:07)
[2018-08-06] MEDS: CALCIUM 500MG/VIT-D 200 UNITS COMBO TABLET (FP) PO SCH ×2 (09:34→21:07)
[2018-08-06] MEDS: amLODIPine BESYLATE 10 MG TABLET (FP) PO SCH (21:07)
[2018-08-06] MEDS: ATORVASTATIN CA 10 MG TABLET (FP) PO SCH (21:07)
[2018-08-06] MEDS ORDERED: LORATADINE 10 MG TABLET PO ONE (21:15)
[2018-08-07] MEDS: DEXAMETHASONE 4 MG TABLET (FP) PO SCH ×3 (00:12→12:07)
[2018-08-07] MEDS: LEVOTHYROXINE NA 100 MCG TABLET (FP) PO SCH (06:12)
[2018-08-07 06:27] VITALS: PULSE 73
[2018-08-07 07:24] LABS: BASO % 0.1 % (0-2.0); HEMATOCRIT 40.2 % (32.4-45.2); HEMOGLOBIN 12.5 GM/dL (10.7-15.3); LYMPH % 9.3 % (8-40); MCH 23.3 pg (25.7-33.7); MCHC 31.1 g/dl (32.0-36.0); MEAN CELL VOLUME 74.9 fl (80-96); MEAN PLT VOLUME 10.1 fl (7.5-11.1); MONO % 3.4 % (3.8-10.2); NEUT % 87.2 % (42.8-82.8); PLATELET COUNT 308 K/MM3 (134-434); RBC 5.36 M/mm3 (3.60-5.2); RDW 15.5 % (11.6-15.6); WHITE BLOOD COUNT 22.9 K/mm3 (4.0-10.0)
[2018-08-07 08:45] LABS: ALBUMIN 3.5 g/dl (3.4-5.0); ALK PHOS 132 U/L (45-117); ANION GAP 9 MMOL/L (8-16); BILIRUBIN,TOTAL 0.3 mg/dL (0.2-1); BLOOD UREA NITROGEN 22 mg/dL (7-18); CHLORIDE 107 mmol/L (98-107); CO2 25 mmol/L (21-32); GLUCOSE,RANDOM 184 mg/dL (74-106); PHOSPHOROUS 3.2 mg/dL (2.5-4.9); POTASSIUM 4.2 mmol/L (3.5-5.1); SGOT/AST 11 U/L (15-37); SGPT/ALT 17 U/L (13-61); SODIUM 141 mmol/L (136-145); TOT PROT 6.8 g/dl (6.4-8.2)
[2018-08-07] MEDS: TOPIRAMATE 25 MG TABLET (FP) PO SCH (09:27)
[2018-08-07] MEDS: CALCITRIOL 0.25 MCG CAPSULE (FP) PO SCH (09:29)
[2018-08-07] MEDS: LISINOPRIL 5 MG TABLET (FP) PO SCH (09:29)
[2018-08-07] MEDS: PANTOPRAZOLE 20 MG TABLET (FP) PO SCH (09:30)
--- NOTE | 2018-08-07 10:15 | DS ---
Physical Exam: SUBJECTIVE: Patient seen and examined OBJECTIVE: Vital Signs Period Temp Pulse Resp BP Sys/Streeter Pulse Ox Last 24 Hr 97.7 F-98.3 F 71-86 20-20 120-130/68-75 96 PHYSICAL EXAM GENERAL: The patient is awake, alert, and fully oriented, in no acute distress. HEAD: Normal with no signs of trauma. EYES: PERRL, extraocular movements intact, sclera anicteric, conjunctiva clear. ENT: Ears normal, nares patent, oropharynx clear without exudates, moist mucous membranes. NECK: Trachea midline, full range of motion, supple. LUNGS: Breath sounds equal, clear to auscultation bilaterally, no wheezes, no crackles, no accessory muscle use. HEART: Regular rate and rhythm, S1, S2 without murmur, rub or gallop. ABDOMEN: Soft, nontender, nondistended, normoactive bowel sounds, no guarding, no rebound, no hepatosplenomegaly, no masses. EXTREMITIES: 2+ pulses, warm, well-perfused, no edema. NEUROLOGICAL: Cranial nerves II through XII grossly intact. Normal speech, gait not observed. PSYCH: Normal mood, normal affect. SKIN: Warm, dry, normal turgor, no rashes or lesions noted. LABS Laboratory Results - last 24 hr 08/06/18 08/07/18 08/07/18 17:36 06:30 06:30 WBC 22.9 H RBC 5.36 H Hgb 12.5 Hct 40.2 MCV 74.9 L MCH 23.3 L MCHC 31.1 L RDW 15.5 Plt Count 308 D MPV 10.1 Absolute Neuts (auto) 20.0 H Neutrophils % 87.2 H D Lymphocytes % 9.3 D Monocytes % 3.4 L Eosinophils % 0.0 D Basophils % 0.1 Nucleated RBC % 0 PTT (Actin FS) 26.8 Sodium 141 Potassium 4.2 Chloride 107 Carbon Dioxide 25 Anion Gap 9 BUN 22 H Creatinine 1.0 Creat Clearance w eGFR 54.97 Random Glucose 184 H Calcium 9.0 Phosphorus 3.2 Magnesium 2.0 Total Bilirubin 0.3 AST 11 L ALT 17 Alkaline Phosphatase 132 H Total Protein 6.8 Albumin 3.5 HOSPITAL COURSE: Date of Admission:08/05/18 IMAGING: * CT and MRI (reviewed) shows a moderate right and a small left convexity subdural hygroma with small venticles. No acute changes. * CT head 08/04: No acute intracranial hemorrhage is seen. Very small hypodense extra-axial fluid collection along the frontal lobes convexity similar in attenuation to the CSF with may represent chronic subdural hematomas versus hygromas. MRI of the brain may be considered for further evaluation. Generally small ventricular system, few cortical sulci are seen at the vertex . Clinically correlate for pseudotumor cerebri. Normal clemente-white matter differentiation. * MRI brain: Small right-sided and very small left-sided panhemispheric chronic subdural hematomas are noted. A trace amount of subacute subdural blood is noted within the very small left-sided collection. There is resultant minimal to mild leftward midline displacement. Partial effacement of the cerebral sulci is noted bilaterally. Trace amounts of chronic subdural blood are also seen layering along the tentorium bilaterally and along the frontal interhemispheric fissure. The cerebellar tonsils appear slightly low in position. There is also slight inferior sagging in the optic chiasm and minimal to mild prominence of the superior border of the pituitary gland. Conceivably these appearances could be on the basis of intracranial hypotension (and/or secondary to mass effect associated with the previously described convexity subdural hematomas). Correlate clinically. * Repeat CT head 08/05: Stable subdural hematoma 68 Micronesian speaking female with a PMH of HTN, dyslipidemia, hypothyroidism, chronic headaches, that presented with complaints of a headache after falling down subsequently admitted for subdural hematoma and evaluation of pseudotumor cerebri. CT head showed likely chronic subdural hematoma. Brain MRI revealed subdural hematoma as well as inferior sagging in the optic chiasm. Neurosurg was consulted and deemed pt not a candidate for surgery and recommended neuro consult. Toradol and Tylenol was given for headache. Additionally, ophtho was consulted for evaluation of MRI findings of sagging in the optic chiasm. Upon ophtho eval, no acute ophthalmologic condition was noted. Repeat head CT was done that showed a stable subdural hematoma. Upon neuro eval, pt was given Topiramate for migraine prophylaxis and Decadron with recommendation to follow up outpatient. Pt's symptoms improved throughout the hospital stay. Pt was discharged to home with instructions to take Topiramate and Decadron. Pt was also advised to follow up with her PCP to recheck CBC, glucose, BP as well as to follow up with neuro outpatient. Date of Discharge: 08/07/18 Minutes to complete discharge: 40 Discharge Summary Reason For Visit: HEADACHE Current Active Problems Subdural hematoma (Chronic) Condition: Improved - Instructions Diet, Activity, Other Instructions: You were seen in the hospital for complaints of headache. Imaging of your brain was done that showed a chronic subdural hematoma (collection of blood). As a result, you were evaluated by a neurologist but you were not found to have an acute neurological condition. Your head CT was repeated that did not change throughout your hospital stay. Additionally, you were evaluated by a neurosurgeon and found to have no necessary neurosurgical intervention at this time. Your symptoms improved through your hospital stay. You are being discharged home. MEDICAL RECOMMENDATIONS Please take Topiramate 50 mg twice a day for migraine headaches. Please take Decadron 2 mg four times a day for 2 days starting tomorrow. ( - 08/09/18) Afterwards, please take Decadron 2 mg every 12 hours for 1 week. (08/10-08/16/18) Please continue taking all your home medications as directed. ADDITIONALLY, DO NOT TAKE ASPIRIN OR BLOOD THINNERS FOR AT LEAST 3 MONTHS. CONSULT RECOMMENDATIONS Please follow up with your primary care physician, Dr. Montalvo, within 1 week. You will need to recheck your CBC, glucose, blood pressure. Please follow up with your neurologist, Dr. Browne, within 1 week. If you experience persistent and worsening headaches, chest pain, shortness of breath, difficulty walking, slurred speech, facial droop, or other neurological symptoms, please proceed to your nearest emergency room immediately. Usted fue visto en el hospital por quejas de dolor de abdon. Se tomaron imgenes de booker cerebro que mostraban un hematoma subdural crnico (acumulacin de mary lou). [place] resultado, un neurlogo lo evalu, bryn no se encontr que tuviera marilee afeccin neurolgica aguda. Se repiti la TC de la abdon que no cambi mo booker estada en el hospital. Adems, un neurocirujano lo evalu y se encontr que no federico ninguna intervencin neuroquirrgica necesaria en minh momento. Dea sntomas mejoraron a travs de booker estada en el hospital. Ests siendo dado de kanika a casa. RECOMENDACIONES MEDICAS Por favor, tome Topiramate 50 mg dos veces al da para las migraas. Remer Decadron 2 mg cuatro veces al da mo 2 [place]udson a partir de maana. (08/08 - 08/09/18) [place], tome Decadron 2 mg cada 12 horas mo 1 semana. (-10/03) Por favor contine tomando todos dea medicamentos caseros segn las indicaciones. ADICIONALMENTE, NO TOME ASPININA O DILUYENTES DE MARY LOU POR AL MENOS 3 MESES. CONSULTE RECOMENDACIONES Por favor italia un seguimiento con booker mdico de atencin primaria, el Dr. Montalvo, dentro de marilee semana. Tendr que volver a controlar booker CBC, glucosa , presin arterial. Por favor italia un seguimiento con booker neurlogo, el Dr. Browne, dentro de 1 semana. Si experimenta timoteo de abdon persistentes y que empeoran, dolor de pecho, falta de aliento, dificultad para caminar, dificultad para hablar, cada del freida u otros sntomas neurolgicos, dirjase a la abdullahi de emergencias ms cercana de inmediato. Referrals: Ga Montalvo MD [Primary Care Provider] - 1 Week Armando Browne MD [Staff Physician] - 1 Week Disposition: HOME - Home Medications Comprehensive Discharge Medication List: Ambulatory Orders Amlodipine Besylate [Norvasc -] 10 mg PO HS 12/01/16 Lisinopril [Zestril] 12.5 mg PO DAILY 12/01/16 Omeprazole 20 mg PO DAILY 12/01/16 Calcitriol [Rocaltrol] 0.5 mcg PO DAILY #30 capsule 12/07/16 Calcium Carbonate/Vitamin D3 [Calcium 500 mg Chewable Tablet] 3 each PO BID # 120 tab.chew 12/07/16 Atorvastatin Ca [Lipitor] 10 mg PO HS #30 tablet 08/07/18 Dexamethasone See Taper PO ASDIR #22 tablet 08/07/18 Levothyroxine [Synthroid -] 100 mcg PO DAILY@0700 tablet 08/07/18 Topiramate [Topamax -] 50 mg PO BID #120 tablet 08/07/18 This patient is new to me today: Yes Date on this admission: 08/09/18 Emergency Visit: Yes ED Registration Date: 08/05/18 Care time: The patient presented to the Emergency Department on the above date and was hospitalized for further evaluation of their emergent condition. Critical Care patient: No - Discharge Referral Referred to [facility] Med [facility].C.: Yes Physician Referral: Ga Hook MD ([facility])
[2018-08-07] MEDS: CALCIUM 500MG/VIT-D 200 UNITS COMBO TABLET (FP) PO SCH (10:26)
[2018-08-07 10:44] LABS: ANISOCYTOSIS 2+; MACROCYTOSIS 0; PLATELET ESTIMATE NORMAL
[2018-08-07 11:37] VITALS: BP 119/65; TEMP 98.6
--- NOTE | 2018-08-07 15:02 | PN ---
Teaching Attending Note Name of Resident: Juliet Mckeon ATTENDING PHYSICIAN STATEMENT I saw and evaluated the patient. I reviewed the resident's note and discussed the case with the resident. I agree with the resident's findings and plan as documented. SUBJECTIVE: No headache today ,feeling well. OBJECTIVE: Vital Signs Temperature 98.6 F 08/07/18 10:00 Pulse Rate 73 08/07/18 10:00 Respiratory Rate 20 08/07/18 10:00 Blood Pressure 119/65 08/07/18 10:00 O2 Sat by Pulse Oximetry (%) 98 08/07/18 09:00 GENERAL: Awake, alert, and fully oriented, in no acute distress. HEAD: Normal with no signs of trauma, no tenderness to palpation. EYES: Pupils equal, round and reactive to light, extraocular movements intact, sclera anicteric, conjunctiva clear. EARS, NOSE, THROAT: Ears normal, oropharynx clear without exudates. Moist mucous membranes. NECK: Normal range of motion, supple without lymphadenopathy, JVD, or masses. LUNGS: Breath sounds equal, clear to auscultation bilaterally. No wheezes, and no crackles. No accessory muscle use. HEART: Regular rate and rhythm, normal S1 and S2 without murmur, rub or gallop. ABDOMEN: Soft, nontender, not distended, normoactive bowel sounds, no guarding, no rebound, no masses. MUSCULOSKELETAL: Normal range of motion at all joints. No bony deformities or tenderness. EXTREMITIES: 2+ pulses, no peripheral edema. NEUROLOGICAL: Cranial nerves II-XII intact. Normal speech. PSYCHIATRIC: Cooperative. Good eye contact. Appropriate mood and affect. SKIN: Warm, dry, normal turgor, no rashes or lesions noted.CBCD WBC 22.9 K/mm3 (4.0-10.0) H 08/07/18 06:30 RBC 5.36 M/mm3 (3.60-5.2) H 08/07/18 06:30 Hgb 12.5 GM/dL (10.7-15.3) 08/07/18 06:30 Hct 40.2 % (32.4-45.2) 08/07/18 06:30 MCV 74.9 fl (80-96) L 08/07/18 06:30 MCHC 31.1 g/dl (32.0-36.0) L 08/07/18 06:30 RDW 15.5 % (11.6-15.6) 08/07/18 06:30 Plt Count 308 K/MM3 (134-434) D 08/07/18 06:30 MPV 10.1 fl (7.5-11.1) 08/07/18 06:30 CMP Sodium 141 mmol/L (136-145) 08/07/18 06:30 Potassium 4.2 mmol/L (3.5-5.1) 08/07/18 06:30 Chloride 107 mmol/L (98-107) 08/07/18 06:30 Carbon Dioxide 25 mmol/L (21-32) 08/07/18 06:30 Anion Gap 9 MMOL/L (8-16) 08/07/18 06:30 BUN 22 mg/dL (7-18) H 08/07/18 06:30 Creatinine 1.0 mg/dL (0.55-1.3) 08/07/18 06:30 Creat Clearance w eGFR 54.97 (>60) 08/07/18 06:30 Random Glucose 184 mg/dL (74-106) H 08/07/18 06:30 Calcium 9.0 mg/dL (8.5-10.1) 08/07/18 06:30 Total Bilirubin 0.3 mg/dL (0.2-1) 08/07/18 06:30 AST 11 U/L (15-37) L 08/07/18 06:30 ALT 17 U/L (13-61) 08/07/18 06:30 Alkaline Phosphatase 132 U/L (45-117) H 08/07/18 06:30 Total Protein 6.8 g/dl (6.4-8.2) 08/07/18 06:30 Albumin 3.5 g/dl (3.4-5.0) 08/07/18 06:30 Home Medications Medication Instructions Recorded Amlodipine Besylate [Norvasc -] 10 mg PO HS 12/01/16 Lisinopril [Zestril] 12.5 mg PO DAILY 12/01/16 Omeprazole 20 mg PO DAILY 12/01/16 Calcitriol [Rocaltrol] 0.5 mcg PO DAILY #30 capsule 12/07/16 Calcium Carbonate/Vitamin D3 3 each PO BID #120 tab.chew 12/07/16 [Calcium 500 mg Chewable Tablet] Atorvastatin Ca [Lipitor] 10 mg PO HS #30 tablet 08/07/18 Dexamethasone See Taper PO ASDIR #22 tablet 08/07/18 Levothyroxine [Synthroid -] 100 mcg PO DAILY@0700 tablet 08/07/18 Topiramate [Topamax -] 50 mg PO BID #120 tablet 08/07/18 CT and MRI (reviewed) shows a moderate right and a small left convexity subdural hygroma with small venticles. No acute changes. CT head: No acute intracranial hemorrhage is seen. Very small hypodense extra- axial fluid collection along the frontal lobes convexity similar in attenuation to the CSF with may represent chronic subdural hematomas versus hygromas. MRI of the brain may be considered for further evaluation. Generally small ventricular system, few cortical sulci are seen at the vertex . Clinically correlate for pseudotumor cerebri. Normal clemente-white matter differentiation. MRI brain: Small right-sided and very small left-sided panhemispheric chronic subdural hematomas are noted. A trace amount of subacute subdural blood is noted within the very small left-sided collection. There is resultant minimal to mild leftward midline displacement. Partial effacement of the cerebral sulci is noted bilaterally. Trace amounts of chronic subdural blood are also seen layering along the tentorium bilaterally and along the frontal interhemispheric fissure. The cerebellar tonsils appear slightly low in position. There is also slight inferior sagging in the optic chiasm and minimal to mild prominence of the superior border of the pituitary gland. Conceivably these appearances could be on the basis of intracranial hypotension (and/or secondary to mass effect associated with the previously described convexity subdural hematomas). Correlate clinically. ASSESSMENT/PLAN: The patient is a 68 year old Kyrgyz speaking female with a PMH of HTN, dyslipidemia, hypothyroidism, chronic headaches, that presented today complaining of headache that started after she fell week ago. She is admitted for subdural hematoma and evaluation of pseudotumor cerebri. # Chronic Subdural hematoma/Hygroma: repeat head CT: no change, Neurosurgeon seen the patient , no intervention at this time. # Acute headache: improved prescribed by Topiramate 25 mg BID x 2 days then 50 mg BID for migraine prophylaxis by neurologist s/p Decadron, 10 mg IVPB x 1 dose then 4 mg QID x 2 days > 2 mg QID x 2 days > then 2 mg q 12 hrs x 1 week. opthalmo consult appreciated, wrote a paper documentation , no edema or swelling. appreciated. # elevated wbc: due to steroids, no sign of infection. # HTN: continue Norvasc # Hypothyroidism: cont Synthroid 100 mcg # Dyslipidemia: lipitor DVT PPX: SCDs GI Px: protonix NO NSAIDS OR ANY BLOOD THINNERS discharge patient home
[2018-08-08] MEDS ORDERED: DEXAMETHASONE 4 MG TABLET (FP) PO SCH (00:01)
[2018-08-09] MEDS ORDERED: TOPIRAMATE 25 MG TABLET (FP) PO SCH (00:01)
== END 2018-08-07 14:17 | disposition home or self-care (01) | DRG 55 ==
LOC: JER 11:07 → JERFT 11:07 → JERBED 12:41 → J6S 22:35 → OBSVTOIN 08-05 12:41
PROVIDERS: ADMIT Internal Medicine; ATTEND Internal Medicine
DX: S06.5X0A Traumatic subdural hemorrhage without loss of consciousness, initial encounter (principal); E78.00 Pure hypercholesterolemia, unspecified; I10 Essential (primary) hypertension; E03.9 Hypothyroidism, unspecified; W18.39XA Other fall on same level, initial encounter; H53.143 Visual discomfort, bilateral; Y92.098 Other place in other non-institutional residence as the place of occurrence of the external cause; E66.9 Obesity, unspecified; Z68.30 Body mass index [BMI] 30.0-30.9, adult; D18.1 Lymphangioma, any site; G43.909 Migraine, unspecified, not intractable, without status migrainosus; H53.149 Visual discomfort, unspecified; G93.2 Benign intracranial hypertension; G96.0 Cerebrospinal fluid leak
CPT/HCPCS: 36415; 70450-TC; 70551-TC; 80048; 80053; 81003; 83036; 83735; 84100; 85025; 85610; 85730; 87086; 93005; 93010; 97116-GP; 97161-GP; 99284-25; G0378

== ENCOUNTER 2018-08-09 18:31 | Emergency (ER) | payer OTHER ==
[2018-08-09 19:03] VITALS: BMI 30.2
--- NOTE | 2018-08-09 19:04 | PDOC ---
Rapid Medical Evaluation Medical Evaluation: Allergies Allergy/AdvReac Type Severity Reaction Status Date / Time No Known Allergies Allergy Verified 08/04/18 11:14 I have performed a brief in-person evaluation of this patient. The patient presents with a chief complaint of: C/O generalized malaise since discharge from hospital 2 days ago; PMH of HTN, dyslipidemia, hypothyroidism, chronic headaches, was seen for headache after falling down and admitted for chronic subdural hematoma and evaluation of pseudotumor cerebri. Patient was started on topamax and decadron. Currently with no headache (took 500 mg of Tylenol prior to coming). Denies n/v, sob, cp, other complaints. Pertinent physical exam findings: In NAD, no focal deficits I have ordered the following: Labs, EKG The patient will proceed to the ED for further evaluation. 08/09/18 19:01 Discharge Disposition - Referrals Referrals: aG Montalvo MD [Primary Care Provider] - - Patient Instructions - Post Discharge Activity
--- NOTE | 2018-08-09 19:33 | PDOC ---
History of Present Illness - General Chief Complaint: Headache Stated Complaint: Headache/ABD PAIN Time Seen by Provider: 08/09/18 19:29 - History of Present Illness Initial Comments: 08/09/18 19:57 68-year-old female recent admission to hospital for subdural hematoma discharged 2 days ago with Topamax and decadron taper. As per daughter yesterday patient complaining of headache and noted to be more lethargic. Patient reports frontal and occipital headache today and feeling unsteady on gait. Denies nausea, vomiting weakness to one side. Patient has a past medical history of hypertension, moderate right and small left subdural hydroma small ventricles, chronic headaches, hypothyroidism. 08/09/18 20:02 NIH Stroke Scale - Last Known Well Date/Time & Onset Date Last Known Well: 08/08/18 Time Last Known Well: 13:00 - Initial Evaluation Level of consciousness: Alert Ask patient the month and their age: Answers both correctly Ask patient to open & close eyes; make fist and let go: Obeys both correctly Best gaze (horizontal eye movement): Normal Visual field testing: No visual field loss Facial paresis (Show teeth/raise eyebrows/close eyes tight): Normal symmetrical movement Motor Function: Left Arm: Normal Motor Function: Right Arm: Normal (extends arm 90 (or 45) degrees for 10 seconds without drift Motor Function: Left Leg: Normal (extends leg 30 degrees for 5 seconds without drift) Motor Function: Right Leg: Normal (extends leg 30 degrees for 5 seconds without drift) Limb Ataxia: No ataxia Sensory(Use pinprick test arms,legs,trunk,face/side to side): Normal Best language (Describe picture, name items, read sentences): No Aphasia Dysarthria (read several words): Normal articulation Extinction and Inattention: No abnormality - Total Score NIH Stroke Scale Score: 0 Past History - Past Medical History Allergies/Adverse Reactions: Allergies Allergy/AdvReac Type Severity Reaction Status Date / Time No Known Allergies Allergy Verified 08/04/18 11:14 Home Medications: Ambulatory Orders Amlodipine Besylate [Norvasc -] 10 mg PO HS 12/01/16 Lisinopril [Zestril] 12.5 mg PO DAILY 12/01/16 Omeprazole 20 mg PO DAILY 12/01/16 Calcitriol [Rocaltrol] 0.5 mcg PO DAILY #30 capsule 12/07/16 Calcium Carbonate/Vitamin D3 [Calcium 500 mg Chewable Tablet] 3 each PO BID # 120 tab.chew 12/07/16 Atorvastatin Ca [Lipitor] 10 mg PO HS #30 tablet 08/07/18 Dexamethasone See Taper PO ASDIR #22 tablet 08/07/18 Levothyroxine [Synthroid -] 100 mcg PO DAILY@0700 tablet 08/07/18 Topiramate [Topamax -] 50 mg PO BID #120 tablet 08/07/18 COPD: No HTN: Yes Hypercholesterolemia: Yes Thyroid Disease: Yes - Family Disease History Family Disease History: Heart Disease: Father, Mother, Sister (SCD post [place] @ 53) - Immunization History Immunization Up to Date: Yes - Suicide/Smoking/Psychosocial Hx Smoking History: Never smoked Have you smoked in the past 12 months: No Hx Alcohol Use: No Drug/Substance Use Hx: No Review of Systems - Review of Systems Able to Perform ROS?: Yes Is the patient limited [place] proficient: No Constitutional: Yes: Weakness HEENTM: No: Symptoms Reported, See HPI, Eye Pain, Blurred Vision, Tearing, Recent change in vision, Double Vision, Cataracts, Ear Pain, Ocular Prothesis, Ear Discharge, Nose Pain, Nose Congestion, Tinnitus, Nose Bleeding, Hearing Loss , Throat Pain, Throat Swelling, Mouth Pain, Dental Problems, Difficulty Swallowing, Mouth Swelling, Other Respiratory: No: Symptoms reported, See HPI, Cough, Orthopnea, Shortness of Breath, SOB with Exertion, SOB at Rest, Stridor, Wheezing, Productive cough, Hemoptysis, Other Cardiac (ROS): No: Symptoms Reported, See HPI, Chest Pain, Edema, Irregular Heart Rate, Lightheadedness, Palpitations, Syncope, Chest Tightness, Other ABD/GI: No: Symptoms Reported, See HPI, Abdominal Distended, Abd. Pain w/ defecation, Blood Streaked Bowels, Constipated, Diarrhea, Difficulty Swallowing , Nausea, Poor Appetite, Poor Fluid Intake, Rectal Bleeding, Vomiting, Indigestion, Abdominal cramping, Tarry Stools, Other : No: Symptoms Reported, See HPI, Burning, Dysuria, Discharge, Frequency, Flank Pain, Hematuria, Incontinence, Pain, Urgency, Testicular Mass, Testicular Swelling, Lesions, Testicular Pain, Other Neurological: Yes: Headache, Weakness, Unsteady Gait. No: Symptoms reported, See HPI, Numbness, Paresthesia, Pre-Existing Deficit, Seizure, Tingling, Tremors , Ataxia, Dizziness, Other *Physical Exam - Vital Signs Last Vital Signs Temp Pulse Resp BP Pulse Ox 98.2 F 65 20 140/79 100 08/09/18 18:55 08/09/18 18:55 08/09/18 18:55 08/09/18 18:55 08/09/18 18:55 - Physical Exam General Appearance: Yes: Appropriately Dressed HEENT: positive: Normal ENT Inspection Respiratory/Chest: positive: Lungs Clear, Normal Breath Sounds Cardiovascular: positive: Regular Rhythm, Regular Rate Female Pelvic Exam: positive: normal external exam, cervical os closed Gastrointestinal/Abdominal: positive: Normal Bowel Sounds, Soft. negative: Tender Extremity: positive: Normal Capillary Refill, Normal Inspection, Normal Range of Motion Integumentary: positive: Normal Color, Dry, Warm Neurologic: positive: chaperone II-XII NML intact, Fully Oriented, Alert, Motor Strength 5/5, Other (sleepy) Moderate Sedation - Procedure Monitoring Vital Signs: Procedure Monitoring Vital Signs Temperature 98.2 F 08/09/18 18:55 Pulse Rate 65 08/09/18 18:55 Respiratory Rate 20 08/09/18 18:55 Blood Pressure 140/79 08/09/18 18:55 O2 Sat by Pulse Oximetry (%) 100 08/09/18 18:55 ED Treatment Course - LABORATORY CBC & Chemistry Diagram: 08/09/18 20:13 08/09/18 20:13 Medical Decision Making - Medical Decision Making 08/09/18 20:01 A: headache P: labs Ct head ua 08/09/18 23:[address] head unchanged. will hydrate. Cfetriaoxne. place in obs for further evaluation. 08/10/18 00:04 Dr. osorio consulted, recommends transfer to tertiary neurosurgical evaluation due to new symptoms of ataxia and headache 08/10/18 00:30 Patient to [facility] for neurosurgical evaluation, patient accepted for transfer by Dr. Meza. (neurosurgery) 08/10/18 00:37 *DC/Admit/Observation/Transfer Diagnosis at time of Disposition: Unsteady gait Headache Qualifiers: Headache type: unspecified Headache chronicity pattern: acute headache Intractability: not intractable Qualified Code(s): R51 - Headache UTI (urinary tract infection) Qualifiers: Urinary tract infection type: acute cystitis Hematuria presence: without hematuria Qualified Code(s): N30.00 - Acute cystitis without hematuria - Discharge Dispostion Disposition: TRANSFER ACUTE CARE/OTHER HOSP - Referrals Referrals: Ga Montalvo MD [Primary Care Provider] - - Patient Instructions - Post Discharge Activity
[2018-08-09 20:25] LABS: BASO % 0.2 % (0-2.0); HEMATOCRIT 40.9 % (32.4-45.2); HEMOGLOBIN 13.7 GM/dL (10.7-15.3); LYMPH % 16.3 % (8-40); MCH 24.6 pg (25.7-33.7); MCHC 33.4 g/dl (32.0-36.0); MEAN CELL VOLUME 73.5 fl (80-96); MEAN PLT VOLUME 9.7 fl (7.5-11.1); MONO % 4.5 % (3.8-10.2); PLATELET COUNT 348 K/MM3 (134-434); RBC 5.57 M/mm3 (3.60-5.2); RDW 15.6 % (11.6-15.6); WHITE BLOOD COUNT 15.2 K/mm3 (4.0-10.0)
[2018-08-09 21:20] LABS: ALBUMIN 3.6 g/dl (3.4-5.0); ALK PHOS 165 U/L (45-117); ANION GAP 8 MMOL/L (8-16); BILIRUBIN,TOTAL 0.4 mg/dL (0.2-1); BLOOD UREA NITROGEN 21 mg/dL (7-18); CALCIUM 9.1 mg/dL (8.5-10.1); CHLORIDE 103 mmol/L (98-107); CO2 27 mmol/L (21-32); GLUCOSE,RANDOM 214 mg/dL (74-106); POTASSIUM 4.9 mmol/L (3.5-5.1); SGOT/AST 11 U/L (15-37); SGPT/ALT 20 U/L (13-61); SODIUM 139 mmol/L (136-145); TOT PROT 7.1 g/dl (6.4-8.2)
[2018-08-09 21:38] LABS: URINE APPEARANCE CLEAR; URINE BILIRUBIN NEGATIVE (<2.0 mg/dL); URINE COLOR STRAW; URINE GLUCOSE (UA) NEGATIVE (NEGATIVE); URINE KETONE NEGATIVE (NEGATIVE); URINE LEUK ESTERASE 2+ (NEGATIVE); URINE NITRITE NEGATIVE (NEGATIVE); URINE PROTEIN NEGATIVE (NEGATIVE); URINE UROBILINOGEN NEGATIVE mg/dL (0.2-1.0)
[2018-08-09 21:48] LABS: EPI CELLS RARE /HPF (FEW)
[2018-08-09 21:52] LABS: PLATELET ESTIMATE ADEQUATE
[2018-08-09] MEDS ORDERED: CEFTRIAXONE 1 GM in DEXTROSE 5%-WATER - 100 ML IVPB ONE (22:26)
[2018-08-09] MEDS ORDERED: SODIUM CHLORIDE 1,000 ML IV STA (22:26)
[2018-08-09] MEDS ORDERED: MAG HYDROX/AL HYDROX/SIMETH 30 ML UNIT-DOSE CUP PO ONE (22:48)
[2018-08-09] MEDS ORDERED: METOCLOPRAMIDE HCL INJECTION 10 MG/2 ML VIAL IVPB ONE (22:48)
[2018-08-09] MEDS ORDERED: METOCLOPRAMIDE HCL INJECTION 10 MG/2 ML VIAL ONE (22:52)
[2018-08-09] MEDS ORDERED: MAG HYDROX/AL HYDROX/SIMETH 30 ML UNIT-DOSE CUP ONE (22:52)
[2018-08-09] MEDS ORDERED: CEFTRIAXONE 1 GM/50 ML BAG ONE (22:53)
[2018-08-09] MEDS ORDERED: ACETAMINOPHEN 325 MG TABLET (FP) PO ONE (23:03)
[2018-08-09] MEDS ORDERED: ACETAMINOPHEN 325 MG TABLET (FP) ONE (23:27)
[2018-08-10 01:27] VITALS: BP 145/79; PULSE 68; TEMP 97.8
--- NOTE | 2018-08-10 12:13 | EKG ---
Test Reason : Blood Pressure : / mmHG Vent. Rate : 056 BPM Atrial Rate : 056 BPM P-R Int : 140 ms QRS Dur : 086 ms QT Int : 416 ms P-R-T Axes : 001 -18 -15 degrees QTc Int : 401 ms SINUS BRADYCARDIA ANTEROLATERAL INFARCT (CITED ON OR BEFORE 01-DEC-2016) ABNORMAL ECG WHEN COMPARED WITH ECG OF 04-AUG-2018 13:59, QT HAS SHORTENED Confirmed by JACQUELIN BAUER, DELGADO ([id number]) on 08/10/2018 12:13:01 PM Referred By: Confirmed By:DELGADO ROPER MD
== END 2018-08-10 01:27 | disposition short-term general hospital (02) ==
LOC: JER 18:31
PROC: 3E03329 Introduction of Other Anti-infective into Peripheral Vein, Percutaneous Approach (ICD-10-PCS; principal; 2018-08-09)
PROC: 3E033GC Introduction of Other Therapeutic Substance into Peripheral Vein, Percutaneous Approach (ICD-10-PCS; 2018-08-09)
DX: R26.81 Unsteadiness on feet (principal); R51 Headache; N39.0 Urinary tract infection, site not specified; E78.5 Hyperlipidemia, unspecified; E03.9 Hypothyroidism, unspecified; Z86.79 Personal history of other diseases of the circulatory system
CPT/HCPCS: 36415; 70450-TC; 80053; 81003; 81015; 82550; 84484; 85025; 93005; 93010; 99283-25; J7030

== ENCOUNTER 2020-07-18 00:42 | Emergency (ER) | payer OTHER ==
[2020-07-18 01:06] VITALS: BMI 31.9
[2020-07-18] MEDS ORDERED: FAMOTIDINE 20 MG/50 ML IVPB 20 MG/50 ML MG IVPB ONE ×2 (02:37→03:32)
[2020-07-18] MEDS ORDERED: MAG HYDROX/AL HYDROX/SIMETH -MYLANTA- ORAL SUSPENSION PO ONE (02:37)
[2020-07-18] MEDS ORDERED: ONDANSETRON 4 MG/2 ML VIAL IVPUSH ONE (02:38)
[2020-07-18] MEDS ORDERED: SODIUM CHLORIDE 0.9% 500 ML INFUS.BAG IV ONE (02:38)
[2020-07-18] MEDS ORDERED: ACETAMINOPHEN 1000 MG/100 ML VIAL (NON FORMULARY) IVPB ONE (02:39)
[2020-07-18] MEDS ORDERED: MAG HYDROX/AL HYDROX/SIMETH 30 ML UNIT-DOSE CUP ONE (03:04)
[2020-07-18] MEDS ORDERED: ACETAMINOPHEN INJECTION 100 ML IVPB ONE (03:04)
[2020-07-18] MEDS ORDERED: ONDANSETRON 4 MG/2 ML VIAL ONE (03:04)
[2020-07-18 03:35] LABS: BASO % 0.2 % (0-2.0); HEMATOCRIT 41.6 % (32.4-45.2); HEMOGLOBIN 13.5 GM/dL (10.7-15.3); LYMPH % 30.4 % (8-40); MCH 24.5 pg (25.7-33.7); MCHC 32.5 g/dl (32.0-36.0); MEAN CELL VOLUME 75.3 fl (80-96); MEAN PLT VOLUME 10.9 fl (7.5-11.1); MONO % 6.7 % (3.8-10.2); NEUT % 62.7 % (42.8-82.8); PLATELET COUNT 200 K/MM3 (134-434); RBC 5.53 M/mm3 (3.60-5.2); RDW 14.7 % (11.6-15.6); WHITE BLOOD COUNT 5.8 K/mm3 (4.0-10.0)
[2020-07-18 03:43] LABS: EPI CELLS 4 /uL (0-25.1); HYALINE CASTS 0 /uL (0-3.1); PH,URINE >= 9.0 (5.0-8.0); URINE APPEARANCE CLEAR; URINE BACTERIA >9,000 /uL (0-1359); URINE BILIRUBIN NEGATIVE (NEGATIVE); URINE COLOR YELLOW; URINE GLUCOSE (UA) NEGATIVE (NEGATIVE); URINE KETONE NEGATIVE (NEGATIVE); URINE LEUK ESTERASE 2+ (NEGATIVE); URINE NITRITE NEGATIVE (NEGATIVE); URINE PROTEIN 1+ (NEGATIVE); URINE RBC 8 /uL (0-23.9); URINE UROBILINOGEN 0.2 mg/dL (0.2-1.0); URINE WBC 271 /uL (0-25.8)
[2020-07-18 03:54] LABS: CHLORIDE 91 mmol/L (98-107); POTASSIUM 3.2 mmol/L (3.5-5.1); SODIUM 137 mmol/L (136-145)
[2020-07-18 03:56] LABS: CALCIUM 7.8 mg/dL (8.5-10.1)
[2020-07-18 03:57] LABS: ALBUMIN 3.5 g/dl (3.4-5.0); ANION GAP 10 MMOL/L (8-16); BLOOD UREA NITROGEN 8.8 mg/dL (7-18); CO2 36 mmol/L (21-32); GLUCOSE,RANDOM 145 mg/dL (74-106); LIPASE 201 U/L (73-393)
[2020-07-18 04:00] LABS: CREATININE 0.9 mg/dL (0.55-1.3); SGOT/AST 50 U/L (15-37); SGPT/ALT 39 U/L (13-61)
[2020-07-18 04:01] LABS: BILIRUBIN,TOTAL 0.3 mg/dL (0.2-1)
[2020-07-18 04:02] LABS: ALK PHOS 90 U/L (45-117)
[2020-07-18] MEDS ORDERED: POTASSIUM CHLORIDE TABS 20 MEQ TABLET.ER (FP) PO ONE ×2 (04:21→04:54)
[2020-07-18] MEDS ORDERED: CEFTRIAXONE 1,000 MG in DEXTROSE 5%-WATER - 50 ML IVPB ONE (04:22)
[2020-07-18] MEDS ORDERED: CEFTRIAXONE 1 GM/50 ML BAG ONE (04:54)
[2020-07-18 07:51] VITALS: BP 148/91; PULSE 68; TEMP 99.1
== END 2020-07-18 07:50 | disposition home or self-care (01) ==
LOC: JER 00:42
PROC: 3E033NZ Introduction of Analgesics, Hypnotics, Sedatives into Peripheral Vein, Percutaneous Approach (ICD-10-PCS; principal; 2020-07-18)
PROC: 3E033GC Introduction of Other Therapeutic Substance into Peripheral Vein, Percutaneous Approach (ICD-10-PCS; 2020-07-18)
PROC: 3E03329 Introduction of Other Anti-infective into Peripheral Vein, Percutaneous Approach (ICD-10-PCS; 2020-07-18)
DX: R10.13 Epigastric pain (principal); N30.00 Acute cystitis without hematuria; N28.89 Other specified disorders of kidney and ureter
CPT/HCPCS: 36415; 71046-TC-FY; 74177-TC; 80053; 81003; 82550; 83690; 84484; 85025; 87086; 87186; 93005; 93010; 99285-25; J0131

== ENCOUNTER 2020-07-20 06:35 | Emergency (ER) | payer OTHER ==
[2020-07-20 07:03] VITALS: BMI 34.0
[2020-07-20] MEDS ORDERED: MAG HYDROX/AL HYDROX/SIMETH 30 ML UNIT-DOSE CUP PO PRN (08:22)
[2020-07-20] MEDS ORDERED: ACETAMINOPHEN 325 MG TABLET (FP) PO ONE (08:22)
[2020-07-20] MEDS ORDERED: FAMOTIDINE 20 MG/50 ML IVPB 20 MG/50 ML MG IVPB ONE ×2 (08:22→08:27)
[2020-07-20] MEDS ORDERED: ACETAMINOPHEN 325 MG TABLET (FP) ONE (08:27)
[2020-07-20] MEDS ORDERED: MAG HYDROX/AL HYDROX/SIMETH 30 ML UNIT-DOSE CUP ONE (08:27)
[2020-07-20 09:07] LABS: BASO % 0.3 % (0-2.0); HEMATOCRIT 41.7 % (32.4-45.2); HEMOGLOBIN 13.7 GM/dL (10.7-15.3); LYMPH % 14.2 % (8-40); MCH 24.6 pg (25.7-33.7); MCHC 32.8 g/dl (32.0-36.0); MEAN CELL VOLUME 74.8 fl (80-96); MEAN PLT VOLUME 10.1 fl (7.5-11.1); NEUT % 80.5 % (42.8-82.8); PLATELET COUNT 201 K/MM3 (134-434); RBC 5.57 M/mm3 (3.60-5.2); RDW 14.5 % (11.6-15.6); WHITE BLOOD COUNT 7.3 K/mm3 (4.0-10.0)
[2020-07-20 09:55] LABS: CHLORIDE 96 mmol/L (98-107); POTASSIUM 3.6 mmol/L (3.5-5.1); SODIUM 136 mmol/L (136-145)
[2020-07-20 09:57] LABS: CALCIUM 7.8 mg/dL (8.5-10.1)
[2020-07-20 09:58] LABS: ALBUMIN 3.2 g/dl (3.4-5.0); ANION GAP 9 MMOL/L (8-16); BLOOD UREA NITROGEN 6.7 mg/dL (7-18); CO2 31 mmol/L (21-32); GLUCOSE,RANDOM 161 mg/dL (74-106)
[2020-07-20 10:01] LABS: CREATININE 0.9 mg/dL (0.55-1.3); SGPT/ALT 27 U/L (13-61)
[2020-07-20 10:02] LABS: BILIRUBIN,TOTAL 0.4 mg/dL (0.2-1); SGOT/AST 44 U/L (15-37); TOT PROT 6.8 g/dl (6.4-8.2)
[2020-07-20 10:04] LABS: ALK PHOS 92 U/L (45-117)
[2020-07-20 10:06] LABS: N-TERMINAL BNP 21.4 pg/ml (5-125)
[2020-07-20 11:49] VITALS: TEMP 99.5
[2020-07-20 12:18] VITALS: BP 136/89; PULSE 82
== END 2020-07-20 12:16 | disposition home or self-care (01) ==
LOC: JER 06:35
PROC: 3E033GC Introduction of Other Therapeutic Substance into Peripheral Vein, Percutaneous Approach (ICD-10-PCS; principal; 2020-07-20)
DX: R10.13 Epigastric pain (principal)
CPT/HCPCS: 36415; 80053; 83880; 84484; 85025; 93005; 93010; 99284-25

== ENCOUNTER 2020-07-25 12:09 | Inpatient (IN) | payer OTHER ==
[2020-07-25] MEDS ORDERED: HALOPERIDOL LACTATE 5 MG/ML IM ONE (12:24)
[2020-07-25 14:54] LABS: HEMATOCRIT 41.9 % (32.4-45.2); HEMOGLOBIN 13.3 GM/dL (10.7-15.3); MCH 23.7 pg (25.7-33.7); MCHC 31.9 g/dl (32.0-36.0); MEAN CELL VOLUME 74.2 fl (80-96); MEAN PLT VOLUME 8.9 fl (7.5-11.1); PLATELET COUNT 353 K/MM3 (134-434); RBC 5.64 M/mm3 (3.60-5.2); RDW 14.7 % (11.6-15.6); WHITE BLOOD COUNT 11.2 K/mm3 (4.0-10.0)
[2020-07-25 15:12] LABS: POTASSIUM 3.5 mmol/L (3.5-5.1)
[2020-07-25 15:14] LABS: CALCIUM 8.7 mg/dL (8.5-10.1)
[2020-07-25 15:15] LABS: ALBUMIN 2.8 g/dl (3.4-5.0); BLOOD UREA NITROGEN 7.8 mg/dL (7-18)
[2020-07-25 15:18] LABS: CREATININE 0.7 mg/dL (0.55-1.3)
[2020-07-25 15:19] LABS: BILIRUBIN,TOTAL 0.5 mg/dL (0.2-1)
[2020-07-25 15:20] LABS: TOT PROT 7.2 g/dl (6.4-8.2)
[2020-07-25] MEDS ORDERED: DEXAMETHASONE SOD PHOSPHATE 20 MG/5 ML VIAL IVPB ONE ×2 (17:08→17:45)
[2020-07-25] MEDS ORDERED: ENOXAPARIN NA (PORCINE) 40 MG/0.4 ML DISP.SYRIN SQ ONE ×2 (17:16→17:51)
[2020-07-25] MEDS ORDERED: DEXAMETHASONE 4 MG TABLET (FP) ONE (17:51)
[2020-07-25] MEDS ORDERED: ENOXAPARIN NA (PORCINE) 30 MG/0.3 ML DISP.SYRIN SQ ONE ×2 (18:14→18:51)
[2020-07-25] MEDS ORDERED: ACETAMINOPHEN 325 MG TABLET (FP) PO PRN (22:02)
[2020-07-26 00:27] VITALS: BMI 32.3
[2020-07-26] MEDS: LEVOTHYROXINE NA 100 MCG TABLET (FP) PO SCH (05:59)
[2020-07-26] MEDS: INSULIN SLIDING SCALE (NOVOLOG) 1 VIAL SQ SCH ×4 (06:03→21:27)
[2020-07-26 07:36] LABS: HEMATOCRIT 41.7 % (32.4-45.2); HEMOGLOBIN 13.2 GM/dL (10.7-15.3); MCH 23.4 pg (25.7-33.7); MCHC 31.6 g/dl (32.0-36.0); MEAN CELL VOLUME 73.9 fl (80-96); MEAN PLT VOLUME 9.1 fl (7.5-11.1); PLATELET COUNT 427 K/MM3 (134-434); RBC 5.64 M/mm3 (3.60-5.2); RDW 14.4 % (11.6-15.6)
[2020-07-26 07:40] LABS: POTASSIUM 4.5 mmol/L (3.5-5.1)
[2020-07-26 07:46] LABS: ALBUMIN 2.6 g/dl (3.4-5.0); BLOOD UREA NITROGEN 9.6 mg/dL (7-18); CALCIUM 8.9 mg/dL (8.5-10.1)
[2020-07-26 07:47] LABS: MAGNESIUM 2.2 mg/dL (1.8-2.4)
[2020-07-26 07:49] LABS: BILIRUBIN,TOTAL 0.8 mg/dL (0.2-1); CREATININE 0.8 mg/dL (0.55-1.3); PHOSPHOROUS 4.3 mg/dL (2.5-4.9)
[2020-07-26] MEDS ORDERED: PT OWN MED DRAWER 7, Y5N ONE (09:06)
[2020-07-26] MEDS: FAMOTIDINE 20 MG TABLET PO SCH (09:33)
[2020-07-26] MEDS: ZINC SULFATE 220 MG CAPSULE (FP) PO SCH ×2 (09:33→21:08)
[2020-07-26] MEDS: ASCORBIC ACID 250 MG TABLET (FP) PO SCH (09:34)
[2020-07-26] MEDS: ENOXAPARIN NA (PORCINE) 80 MG/0.8 ML DISP.SYRIN SQ SCH ×2 (09:52→21:08)
[2020-07-26] MEDS ORDERED: ENOXAPARIN NA (PORCINE) 80 MG/0.8 ML DISP.SYRIN SQ SCH (10:00)
[2020-07-26] MEDS ORDERED: DEXAMETHASONE SOD PHOSPHATE 20 MG/5 ML VIAL IVPB SCH (10:00)
[2020-07-26] MEDS: CHOLECALCIFEROL (VIT D3) 5000 UNITS (125 MCG) CAP PO SCH (10:28)
[2020-07-26] MEDS ORDERED: REMDESIVIR 200 MG in SODIUM CHLORIDE 210 ML IVPB ONE (15:30)
[2020-07-26] MEDS ORDERED: LISINOPRIL 20 MG TABLET PO ONE (21:32)
[2020-07-27] MEDS: INSULIN SLIDING SCALE (NOVOLOG) 1 VIAL SQ SCH ×4 (06:03→21:14)
[2020-07-27] MEDS: LEVOTHYROXINE NA 100 MCG TABLET (FP) PO SCH (06:03)
[2020-07-27 07:33] LABS: EOS % 0.1 % (0-4.5); HEMATOCRIT 37.9 % (32.4-45.2); HEMOGLOBIN 12.2 GM/dL (10.7-15.3); LYMPH % 23.7 % (8-40); MCH 23.7 pg (25.7-33.7); MCHC 32.1 g/dl (32.0-36.0); MEAN CELL VOLUME 73.9 fl (80-96); MEAN PLT VOLUME 8.9 fl (7.5-11.1); MONO % 8.2 % (3.8-10.2); PLATELET COUNT 512 K/MM3 (134-434); RBC 5.13 M/mm3 (3.60-5.2); RDW 14.6 % (11.6-15.6); WHITE BLOOD COUNT 11.7 K/mm3 (4.0-10.0)
[2020-07-27 07:53] LABS: POTASSIUM 3.9 mmol/L (3.5-5.1)
[2020-07-27 07:55] LABS: ALBUMIN 2.4 g/dl (3.4-5.0); CALCIUM 8.7 mg/dL (8.5-10.1)
[2020-07-27 07:56] LABS: BLOOD UREA NITROGEN 16.8 mg/dL (7-18)
[2020-07-27 07:59] LABS: CREATININE 0.9 mg/dL (0.55-1.3)
[2020-07-27 08:01] LABS: BILIRUBIN,TOTAL 0.4 mg/dL (0.2-1); TOT PROT 6.4 g/dl (6.4-8.2)
[2020-07-27] MEDS: FAMOTIDINE 20 MG TABLET PO SCH (09:25)
[2020-07-27] MEDS ORDERED: PT OWN MED DRAWER 7, Y5N ONE (09:25)
[2020-07-27] MEDS: ENOXAPARIN NA (PORCINE) 80 MG/0.8 ML DISP.SYRIN SQ SCH ×2 (09:25→21:13)
[2020-07-27] MEDS: ZINC SULFATE 220 MG CAPSULE (FP) PO SCH ×2 (09:25→21:14)
[2020-07-27] MEDS: ASCORBIC ACID 250 MG TABLET (FP) PO SCH (09:26)
[2020-07-27] MEDS: CHOLECALCIFEROL (VIT D3) 5000 UNITS (125 MCG) CAP PO SCH (09:27)
[2020-07-27] MEDS ORDERED: DEXAMETHASONE SOD PHOSPHATE 4 MG/1 ML VIAL IVPB SCH (10:00)
[2020-07-27] MEDS ORDERED: INSULIN (NOVOLOG) ASPART 100 UNITS/ML 10ML VIAL ONE ×2 (11:48→20:23)
[2020-07-27 12:57] LABS: ANISOCYTOSIS 0; MACROCYTOSIS 0; PLATELET ESTIMATE DECREASED
[2020-07-27] MEDS: REMDESIVIR 100 MG in SODIUM CHLORIDE 230 ML IVPB SCH (14:59)
[2020-07-27] MEDS: LORATADINE 10 MG TABLET PO SCH (14:59)
[2020-07-27] MEDS: ATORVASTATIN CA 10 MG TABLET (FP) PO SCH (21:13)
[2020-07-28] MEDS ORDERED: INSULIN (NOVOLOG) ASPART 100 UNITS/ML 10ML VIAL ONE ×2 (05:47→22:29)
[2020-07-28] MEDS: LEVOTHYROXINE NA 100 MCG TABLET (FP) PO SCH (06:00)
[2020-07-28] MEDS: INSULIN SLIDING SCALE (NOVOLOG) 1 VIAL SQ SCH ×4 (06:01→22:33)
[2020-07-28 07:47] LABS: BASO % 0.4 % (0-2.0); EOS % 0.1 % (0-4.5); HEMATOCRIT 36.4 % (32.4-45.2); HEMOGLOBIN 11.5 GM/dL (10.7-15.3); LYMPH % 26.5 % (8-40); MCH 23.7 pg (25.7-33.7); MCHC 31.5 g/dl (32.0-36.0); MEAN CELL VOLUME 75.2 fl (80-96); MONO % 9.9 % (3.8-10.2); NEUT % 63.1 % (42.8-82.8); PLATELET COUNT 543 K/MM3 (134-434); RBC 4.85 M/mm3 (3.60-5.2); RDW 14.7 % (11.6-15.6); WHITE BLOOD COUNT 11.6 K/mm3 (4.0-10.0)
[2020-07-28 08:06] LABS: ALBUMIN 2.4 g/dl (3.4-5.0); BLOOD UREA NITROGEN 16.6 mg/dL (7-18); CALCIUM 8.4 mg/dL (8.5-10.1)
[2020-07-28 08:10] LABS: CREATININE 0.8 mg/dL (0.55-1.3)
[2020-07-28 08:11] LABS: BILIRUBIN,TOTAL 0.5 mg/dL (0.2-1); TOT PROT 6.1 g/dl (6.4-8.2)
[2020-07-28] MEDS: HYDROCHLOROTHIAZIDE 12.5 MG CAPSULE (FP) PO SCH (08:59)
[2020-07-28] MEDS: LORATADINE 10 MG TABLET PO SCH (09:00)
[2020-07-28] MEDS: LISINOPRIL 20 MG TABLET PO SCH (09:00)
[2020-07-28] MEDS: APIXABAN 5 MG TABLET PO SCH ×2 (09:00→22:30)
[2020-07-28] MEDS: CHOLECALCIFEROL (VIT D3) 5000 UNITS (125 MCG) CAP PO SCH (09:00)
[2020-07-28] MEDS: FAMOTIDINE 20 MG TABLET PO SCH (09:00)
[2020-07-28] MEDS: ZINC SULFATE 220 MG CAPSULE (FP) PO SCH ×2 (09:00→22:30)
[2020-07-28] MEDS: ASCORBIC ACID 250 MG TABLET (FP) PO SCH (09:00)
[2020-07-28] MEDS ORDERED: DEXAMETHASONE 4 MG TABLET (FP) PO SCH (10:00)
[2020-07-28] MEDS: DEXAMETHASONE 4 MG TABLET (FP) PO SCH (11:46)
[2020-07-28 11:55] LABS: ANISOCYTOSIS 1+; MACROCYTOSIS 0; PLATELET ESTIMATE INCREASED; TARGET CELLS 1+
[2020-07-28] MEDS: ARTIFICIAL TEARS (POLYVINYL ALCOHOL) OPTH DROPS OU PRN (15:31)
[2020-07-28] MEDS: REMDESIVIR 100 MG in SODIUM CHLORIDE 230 ML IVPB SCH (15:31)
[2020-07-28] MEDS: ATORVASTATIN CA 10 MG TABLET (FP) PO SCH (22:30)
[2020-07-29] MEDS: LEVOTHYROXINE NA 100 MCG TABLET (FP) PO SCH (06:00)
[2020-07-29] MEDS: INSULIN SLIDING SCALE (NOVOLOG) 1 VIAL SQ SCH ×2 (06:00→11:45)
[2020-07-29] MEDS ORDERED: PT OWN MED DRAWER 7, Y5N ONE (09:42)
[2020-07-29] MEDS: FAMOTIDINE 20 MG TABLET PO SCH (09:46)
[2020-07-29] MEDS: CHOLECALCIFEROL (VIT D3) 5000 UNITS (125 MCG) CAP PO SCH (09:46)
[2020-07-29] MEDS: ASCORBIC ACID 250 MG TABLET (FP) PO SCH (09:46)
[2020-07-29] MEDS: ZINC SULFATE 220 MG CAPSULE (FP) PO SCH (09:46)
[2020-07-29] MEDS: HYDROCHLOROTHIAZIDE 12.5 MG CAPSULE (FP) PO SCH (09:46)
[2020-07-29] MEDS: LISINOPRIL 20 MG TABLET PO SCH (09:47)
[2020-07-29] MEDS: LORATADINE 10 MG TABLET PO SCH (09:47)
[2020-07-29] MEDS: ARTIFICIAL TEARS (POLYVINYL ALCOHOL) OPTH DROPS OU PRN (09:47)
[2020-07-29] MEDS: DEXAMETHASONE 4 MG TABLET (FP) PO SCH (09:47)
[2020-07-29] MEDS: APIXABAN 5 MG TABLET PO SCH (09:47)
[2020-07-29] MEDS ORDERED: MAG HYDROX/AL HYDROX/SIMETH 30 ML UNIT-DOSE CUP PO PRN (11:19)
[2020-07-29 13:49] VITALS: BP 137/72; PULSE 69; TEMP 97.9
[2020-07-29] MEDS ORDERED: FAMOTIDINE 20 MG TABLET PO SCH (22:00)
== END 2020-07-29 16:59 | disposition home health service (06) | DRG 137 ==
LOC: JER 12:09 → JERBED 13:55 → J7W 23:33
PROVIDERS: ADMIT Hospitalist; ATTEND Internal Medicine
PROC: XW033E5 Introduction of Remdesivir Anti-infective into Peripheral Vein, Percutaneous Approach, New Technology Group 5 (ICD-10-PCS; principal; 2020-07-26)
DX: U07.1 COVID-19 (principal); J96.01 Acute respiratory failure with hypoxia; I26.99 Other pulmonary embolism without acute cor pulmonale; J12.89 Other viral pneumonia; E87.1 Hypo-osmolality and hyponatremia; E03.9 Hypothyroidism, unspecified; K21.9 Gastro-esophageal reflux disease without esophagitis; I10 Essential (primary) hypertension; E78.5 Hyperlipidemia, unspecified; N28.89 Other specified disorders of kidney and ureter
CPT/HCPCS: 36415; 71045-TC-FY; 71275-TC; 80053; 82728; 82962; 83615; 83735; 84100; 84436; 84439; 84443; 85025; 85027; 85379; 86140; 87804; 93005; 93010; 94761; 97116-GP; 97161-GP; 99285-25; C9399; C9803; Q9967; U0003

== ENCOUNTER 2022-05-31 09:10 | Emergency (ER) | payer OTHER ==
[2022-05-31 10:40] VITALS: TEMP 98.3; BMI 29.8
[2022-05-31 13:20] VITALS: RESP 18
[2022-05-31 14:03] LABS: BASO % 0.3 % (0-2.0); EOS % 0.1 % (0-4.5); HEMATOCRIT 40.3 % (32.4-45.2); HEMOGLOBIN 12.7 GM/dL (10.7-15.3); LYMPH % 28.2 % (8-40); MCH 23.2 pg (25.7-33.7); MCHC 31.6 g/dl (32.0-36.0); MEAN CELL VOLUME 73.6 fl (80-96); MEAN PLT VOLUME 11.3 fl (7.5-11.1); MONO % 6.3 % (3.8-10.2); NEUT % 65.1 % (42.8-82.8); PLATELET COUNT 263 10^3/uL (134-434); RBC 5.47 M/mm3 (3.60-5.2); WHITE BLOOD COUNT 9.7 K/mm3 (4.0-10.0)
[2022-05-31 14:26] LABS: CALCIUM 8.6 mg/dL (8.5-10.1)
[2022-05-31 14:27] LABS: ALBUMIN 3.9 g/dl (3.4-5.0); BLOOD UREA NITROGEN 10.8 mg/dL (7-18); MAGNESIUM 1.3 mg/dL (1.8-2.4)
[2022-05-31 14:30] LABS: CREATININE 0.8 mg/dL (0.55-1.3)
[2022-05-31 14:31] LABS: TOT PROT 7.5 g/dl (6.4-8.2)
[2022-05-31 14:32] LABS: BILIRUBIN,TOTAL 0.5 mg/dL (0.2-1)
[2022-05-31 14:48] LABS: PH,URINE 8.5 (5.0-8.0); URINE APPEARANCE CLEAR; URINE BILIRUBIN NEGATIVE (NEGATIVE); URINE COLOR YELLOW; URINE GLUCOSE (UA) NEGATIVE (NEGATIVE); URINE KETONE NEGATIVE (NEGATIVE); URINE LEUK ESTERASE NEGATIVE (NEGATIVE); URINE NITRITE NEGATIVE (NEGATIVE); URINE PROTEIN TRACE (NEGATIVE)
[2022-05-31] MEDS ORDERED: MAGNESIUM SULF 50% (8.12 MEQ/2 ML-1 GM VIAL) IVPB ONE (15:20)
[2022-05-31 19:14] VITALS: BP 154/79; PULSE 70
== END 2022-05-31 19:14 | disposition home or self-care (01) ==
LOC: JER 09:10
PROC: 3E033GC Introduction of Other Therapeutic Substance into Peripheral Vein, Percutaneous Approach (ICD-10-PCS; principal; 2022-05-31)
DX: R00.2 Palpitations (principal)
CPT/HCPCS: 0241U-QW; 36415; 71045-TC-FY; 80053; 81003; 83735; 84443; 84484; 85025; 93005; 93010; 99285-25